=== PATIENT | female | born 1940 | race Caucasian/White ===

== ENCOUNTER → 2023-10-12 13:21 | Outpatient (REF) | payer OTHER, SELFPAY | LOC: RAD 13:21 | PROVIDERS: ATTENDING PHYSICIAN Nurse Practitioner Family | DX: R05.1 Acute cough (principal) | CPT/HCPCS: 71046 ==

== ENCOUNTER → 2023-11-12 14:03 | Outpatient (REF) | payer OTHER, SELFPAY | LOC: WDC 14:03 | PROVIDERS: ATTENDING PHYSICIAN Obstetrics & Gynecology; FAMILY PHYSICIAN Internal Medicine Geriatric Medicine | DX: Z12.31 Encounter for screening mammogram for malignant neoplasm of breast (principal) | CPT/HCPCS: 77063; 77067 ==

== ENCOUNTER → 2023-11-28 12:56 | Outpatient (REF) | payer OTHER, SELFPAY | LOC: RAD 12:56 | PROVIDERS: ATTENDING PHYSICIAN Thoracic Surgery (Cardiothoracic Vascular Surgery); FAMILY PHYSICIAN Internal Medicine Geriatric Medicine | DX: R91.1 Solitary pulmonary nodule (principal) | CPT/HCPCS: 71250 ==

== ENCOUNTER → 2024-02-13 14:01 | Outpatient (REF) | payer OTHER, SELFPAY | LOC: PAVMRI 14:01 | PROVIDERS: ATTENDING PHYSICIAN Psychiatry & Neurology Neurology; FAMILY PHYSICIAN Internal Medicine Geriatric Medicine | DX: G35 Multiple sclerosis (principal) | CPT/HCPCS: 70551; 72141 ==

== ENCOUNTER → 2024-04-02 13:10 | Outpatient (REF) | payer OTHER, SELFPAY | LOC: PET 13:10 | PROVIDERS: ATTENDING PHYSICIAN Internal Medicine Hematology & Oncology | DX: C18.0 Malignant neoplasm of cecum (principal) | CPT/HCPCS: 78815; A9552 ==

== ENCOUNTER 2024-05-01 23:03 | Inpatient (IN) | payer OTHER, SELFPAY ==
[2024-05-01 20:10] VITALS: BP 151/71
--- NOTE | 2024-05-01 22:30 | PTCARENOTE ---
Pt. arrived to 2S via EMS direct admit from [facility]. Pt. A&Ox3, in NAD, and VSS, able to walk to room bed with standby assist, pt. oriented to room and unit policies, call light and belongings within reach. Covering hospitalist notified of
patient's arrival.
[2024-05-01 23:35] VITALS: BMI 27.8
[2024-05-01 23:39] VITALS: BP 152/60
[2024-05-01 23:45] LABS: Glucose - Point of Care 214 mg/dl (70-99)
--- NOTE | 2024-05-02 00:17 | HPS.HSE ---
Family Physician
-
Family Physician: Miguel Martínez
Chief Complaint
-
Transfer from outside hospital following colorectal surgery
History of Present Illness
This is a 83-year-old female with past medical history of right lower lung neoplasm status post partial lung resection, CKD stage III, COPD not on home O2, mitral valve prolapse, MS and a recent diagnosis of cecal adenocarcinoma who was transferred
from [facility] following open right hemicolectomy with primary anastomosis on 04/22 with some postop complications
Patient reportedly had a recent history of rectal bleeding. This reportedly resulted in follow-up colonoscopy showing a malignant neoplasm in the cecum which was confirmed by biopsy. There was no apparent metastatic disease. Patient discussed the
plan and was to get a resection. Patient was admitted at [facility] and ultimately underwent resection on 04/22.
Because appeared to have been complicated by a finding of infectious delirium, tachycardia, and free here in the abdomen consistent with anastomotic leak on April 25. She had a stat reopening of the recent laparotomy with resection of necrotic
ileocolic anastomosis and a new ileocolic anastomosis created. No ostomy. There was placement of 2 Gonsalo drains. It appeared immediate postoperative course was complicated by supraventricular tachycardia and unstable atrial fibrillation with RVR
status post cardioversion to normal sinus rhythm and amiodarone drip which was ultimately tapered to p.o. she had NICOLE not requiring dialysis with eventual improvement of renal function. Briefly on the new and extubated the following day. Patient
was placed on TPN on April 27. NG tube placed.
On April 28 the patient was started on TPN. The midline incision had superficial skin dehiscence packed with plain packing and covered with 4 x 4 gauze. At this time the patient requested to be transferred to for ongoing car. Over the next 2
days they attempted to advance diet to low fiber diet but she developed emesis overnight on 04 30. She also had increasing WBC count going from 16K-24K. She underwent a CT of the abdomen and pelvis despite the initial refusal by patient. The
records of the CT abdomen pelvis is pending at this time. It was done without IV contrast. Patient's pain is apparently well-controlled on Tylenol 25 every 6 oxycodone 5 mg every 4 as needed. Patient was transferred with the bilateral drains in
place. She was voiding adequately and did not need a urinary catheter. TPN was running.
Medical History
Past Medical History
Past Medical History: Reports COPD and Valvular Disease (Mitral valve prolapse)
Additional Past Medical History:
Multiple sclerosis
Past Surgical History: Reports Bowel Resection and Other (Thyroidectomy)
Additional Past Surgical History:
Pneumonectomy/lobectomy
Left femoral tumor excision
Ovarian cyst removal
Social History
Tobacco: Former Smoker
Alcohol: None
Drug: None
Personal:
Living: With Family
Employment: Retired
Family History
Family History: Not pertinent
Allergies / Home Medications
Allergies reflects when Allergies were last updated in [facility].
Home Medications with original date entered in [facility]
Allergy/Medication List:
Allergies
Allergy/AdvReac Type Severity Reaction Status Date / Time
adhesive Allergy red and Verified 01/11/23 08:58
rashy
cephalexin monohydrate Allergy diarrhea Verified 01/11/23 08:58
[From Keflex]
cortisone Allergy Unknown Verified 01/11/23 08:58
hydromorphone HCl Allergy VERY Verified 01/11/23 08:58
[From Dilaudid] RED,RASH
Iodinated Contrast Media Allergy Hives Verified 01/11/23 08:58
[Iodinated Contrast Media -
IV Dye]
levofloxacin [From Levaquin] Allergy diarrhea Verified 01/11/23 08:58
meperidine HCl [From Demerol] Allergy Hives Verified 01/11/23 08:58
morphine Allergy Hives Verified 01/11/23 08:58
oxycodone HCl [From Percocet] Allergy Vomiting Verified 01/11/23 08:58
sulfamethoxazole Allergy diarrhea Verified 01/11/23 08:58
[From Bactrim] 'in the
past'
trimethoprim [From Bactrim] Allergy diarrhea Verified 01/11/23 08:58
'in the
past'
indixanol Allergy Hives Uncoded 01/11/23 08:58
Home Medications
cetirizine 10 mg tablet (Zyrtec) 10 mg PO DAILY PRN allergies #0 tabs 04/10/13
levothyroxine 50 mcg tablet 50 mcg PO DAILY 04/17/13
spironolactone 25 mg tablet 25 mg PO BID 04/17/13
Co Q-10 100 mg Softgel 200 mg PO DAILY 09/09/13
cholecalciferol (vitamin D3) 50 mcg (2,000 unit) tablet 2,000 units PO DAILY 09/09/13
wddugcap-ltj-shcjn acid 0.4 mg-lycopene 300 mcg-lutein 250 mcg tablet (Centrum Silver) 1 tab PO DAILY 09/09/13
esomeprazole magnesium 20 mg capsule,delayed release (Nexium) 20 mg PO DAILY 01/28/16
Pravachol: 80 mg PO DAILY 12/18/19
alprazolam 0.5 mg tablet 0.5 mg PO HS PRN sleep 12/18/19
cyanocobalamin (vitamin B-12) 5,000 mcg disintegrating tablet 5,000 mcg PO DAILY 12/18/19
magnesium oxide 400 mg PO DAILY 12/18/19
ascorbic acid (vitamin C) 500 mg tablet (Vitamin C) 500 mg PO DAILY 04/20/20
fluticasone propionate 115 mcg-salmeterol 21 mcg/actuation HFA inhaler (Advair HFA) 2 puff inhalation BID 09/05/22
levalbuterol tartrate 45 mcg/actuation aerosol inhaler 2 inh inhalation Q6H PRN COPD 09/05/22
propranolol 10 mg tablet 10 mg PO BID 09/05/22
Review of Systems
-
History Source: Patient and Family
Constitutional: Reports No Symptoms
EENT: Reports No Symptoms
Respiratory: Reports No Symptoms
Cardiac: Reports No Symptoms
Abdomen/GI: Reports Abdominal Pain and Nausea
: Reports No Symptoms
Musculoskeletal: Reports No Symptoms
Skin: Reports No Symptoms
Neurological: Reports No Symptoms
Endocrine: Reports No Symptoms
Hematologic/Lymphatic: Reports No Symptoms
Psych: Reports No Symptoms
Physical Exam
Vital Signs
Vital Signs
Temp Pulse Resp BP Pulse Ox
98.1 F 73 20 152/60 94
05/01/24 23:39 05/01/24 23:39 05/01/24 23:39 05/01/24 23:39 05/01/24 23:39
Physical Exam
General: Well Developed, Well Nourished, No Apparent Distress, Comfortable and Conversant
HEENT: NormoCephalic, Anicteric, Moist mucous membranes and Atraumatic
Respiratory: Clear
Cardiac: S1/S2 and Regular Rhythm
Breast: Deferred by me
GI: Soft, Normal Bowel Sounds, Distended, No Hepatosplenomegaly and Other (Bilateral Gonsalo tubes with midline insertion/incision. No significant drainage around the incision site. Serosanguineous drainage from the tubes)
Rectal: Deferred by Provider
Genito-urinary: Deferred by me
Musculoskeletal: No Clubbing, No Cyanosis and No Edema
Skin: Warm
Neuro: AO x 3
Psych: Calm
Data Reviewed
-
Old Records: Reviewed
Impression/Plan
-
IMPRESSION:
PLAN:
1. GI -6 days status post exploratory laparotomy, Elzbieta to me with biopsy and reanastomosis ofter failure of old anastomosis with intraperitoneal air. She is currently well appearing but continues to have leukocytosis and is intolerant of po, ?
bowel obstruction.
- admit to telemetry for now
- NPO except meds
- pain control and antiemetics
- ppi iv, famotidine for now
- surgery consultation
- d5 ns at this time pending tpn
- Patient on TPN at outside hospital, will need placement of TPN in am -> see records
2. Leukocytosis - WBC up from16 to 24. S/P CT A/P w/o contrast. Not available for review at this time. Requested summary and imaging.
- infectious d/z w/u
- blood culture, fluid culture
- urine culture
- drain per surgery
- xray
- continuing IV ceftriaxone and flagyl.
3.AFIB - Post operative AP in setting of urgent ex-lap. Cardioverted. No recurrence since
- amio 400mg q 8, will need titration down per cardiology
- no AC given recent complex surgery and possible OR
- cardiology consult
4. Endocrine - No h/o DM II
- while npo, bedside qlucose q6 with low dose sliding scale insulin
5. Delirium - Delirium while hospitalized either secondary to sepsis or medications. Patient pleasant but still slightly confused. No focal neurological deficits (mixes up words intermittently)
- xanax 0.5 hs prn
- minimize opioids as tolerated
6. Pulm - COPD/ANABELLE
- incentive spirometry
- continue advair with prn albuterol
- CPAP per patient unit
Requested radiology reports, images and consults
Wound care consult (was getting daily dressing changes)
PT consult
Continue pravstatin and synthroid
Holding propranolol and spironolactone
DVT PPX - lovenox sq
Code Status - Full Code
[2024-05-02] MEDS: TYLENOL PO ×2 (00:19→05:23)
[2024-05-02] MEDS: FLAGYL 500 MG 100 IV ×3 (00:19→15:20)
[2024-05-02] MEDS: D5/0.45%NACL 1000 IV (00:19)
[2024-05-02] MEDS: NOVOLOG FLEXPEN-LOW RESISTANCE 2 UNITS SC (00:20)
--- NOTE | 2024-05-02 05:45 | PTCARENOTE ---
IV nurse reporting patient is refusing morning lab work and stating she didn't want 'anything' done at this time citing that she was tired and wanted to speak with a doctor. Pt. also demanding to have IVF taken down until she speaks to a doctor but
able to educate patient on need for fluids and she agreed to keep IVF running. Release of information forms, MRSA swab, UA, CRISTINA cultures, and 0600 blood glucose check unable to be performed at this time.
[2024-05-02] MEDS: NOVOLOG FLEXPEN-LOW RESISTANCE SC (05:49)
--- NOTE | 2024-05-02 05:49 | VATNOTE ---
PT REFUSED TO HAVE ORDERED LABS DRAWN FROM HER PICC LINE. PT STATED SHE 'DOESNT WANT ANYTHING DONE OR GIVEN TO HER UNTIL SHE SEES THE MD.' PCN MADE AWARE.
[2024-05-02] MEDS: SYNTHROID PO (05:50)
[2024-05-02 06:00] VITALS: BMI 27.5
[2024-05-02 06:45] LABS: Glucose - Point of Care 170 mg/dl (70-99)
[2024-05-02 07:17] LABS: ALT (SGPT) 16 U/L (0-35); AST (SGOT) 24 U/L (14-36); Albumin 2.7 g/dl (3.5-5.0); Alkaline Phosphatase 83 U/L (38-126); Blood Urea Nitrogen 38 mg/dl (7-17); Calcium 8.6 mg/dl (8.4-10.2); Carbon Dioxide 21 mmol/L (22-30); Chloride 106 mmol/L (98-107); Estimated Creatinine Clearance 69 ml/min; Glucose 166 mg/dl (70-99); Lipase 733 U/L (23-300); Potassium 4.3 mmol/L (3.5-5.1); Sodium 140 mmol/L (135-145); Total Bilirubin 0.5 mg/dl (0.2-1.3); Total Protein 5.1 g/dl (6.3-8.2); eGFR > 60.00
[2024-05-02] MEDS: ADVAIR HFA 115/21 MCG INHALER 2 PUFF INH ×2 (07:48→19:29)
[2024-05-02 08:16] LABS: Hematocrit 27.7 % (37.0-47.0); Hemoglobin 9.3 g/dL (12.0-16.0); Mean Corp Hgb Conc. 33.6 g/dL (33.0-37.0); Mean Corpuscular Hgb 28.7 pg (27.0-31.0); Mean Corpuscular Volume 85.5 fL (81.0-99.0); Platelet Count 527 10^3/uL (130-400); Red Blood Cell Count 3.24 10^6/uL (4.20-5.40); Red Cell Dist. Width 19.1 % (11.5-14.5); White Blood Cell Count 23.6 10^3/uL (4.8-10.8)
[2024-05-02 08:35] LABS: % Basophils 0.4 % (0-2); % Lymphocytes 4.7 % (20.5-51.1); % Monocytes 4.5 % (1.7-9.3); % Neutrophils 84.4 % (42.2-75.2); Absolute Basophils 0.1 10^3/uL (0-0.2); Absolute Immature Granulocytes 1.4 10^3/uL (0-0.05); Absolute Lymphocytes 1.1 10^3/uL (1.2-3.4); Absolute Monocytes 1.1 10^3/uL (0.1-0.6); Absolute Neutrophils 19.9 10^3/uL (1.4-6.5); Nucleated Red Blood Cells % 0 %
--- NOTE | 2024-05-02 08:50 | WOUNDNOTE ---
MID ABDOMEN (prior to stapes removed by colorectal service).
[2024-05-02 08:52] VITALS: BP 132/59
--- NOTE | 2024-05-02 09:01 | WOUNDNOTE ---
ABDOMEN (AFTER DELICIA REMOVED BY COLORECTAL SERVICE).
--- NOTE | 2024-05-02 09:02 | WOUNDNOTE ---
[facility] RN note: Patient was transferred to from [facility] per patient request. s/p R hemicolectomy for cecal cancer on 04/22/24 and had stat surgery on 04/25/24 for anastomotic leak at [facility].
See H&P for complete history.
PMH: R lung ca, s/p partial resection, CKD3, COPD, mitral prolapse, MS.
Wound Location and type/assessment: Patient admitted with: stage 1 lower sacral crease stage 1 pressure injury. Full thickness surgical wound mid abdomen with zack and large amount of serous and purulent garcia drainage. CRISTINA sites with local
erythema.
Appetite: NPO currently.
Pressure redistribution devices in place: Advanta with Accumax. Patient turns easily in bed.
Plan: Colorectal service in room during visit. Dr. Cheung and NELLIE Coker removed mid line abdominal zack. Dr. Cheung wants nursing to change saline gauze packing bid. Abdominal wound packed as ordered. CRISTINA drainage sponges changed.
Protective silicone border foam applied to sacrum. Heels off bed with air chair cushion. Instructed patient pressure injury prevention measures. Updated TONJA Bhandari.
Updated care plan. Will sign off. Call if needed.
Note to case management of equipment requested for discharge: VN if patient goes home.
Patient to follow up with colorectal surgeon.
--- NOTE | 2024-05-02 09:06 | W.PN.HOSP.TC ---
Today's Communication/Plan
-
Antibiotics. Postop care. PT OT eval
Assessment / Plan
Assessment / Plan
Physical exam:
General: Appears chronically ill and No Apparent Distress
HEENT: Normocephalic, Atraumatic and Moist Mucous Membranes
Respiratory: Clear to Auscultation; Negative Wheezes, Rales or Rhonchi
Cardiac: Regular Rhythm and S1/S2
GI: Postop findings, Soft, Nontender and Nondistended
Musculoskeletal: No Clubbing, No Cyanosis and No Edema
Neuro: Awake, Alert and Oriented
Psych: Calm
A/P:
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
Transfer from [facility] on 05/01/2024
On low residue diet
Colorectal surgery consult
No need for TPN
Trying to obtain recent abdomen images from transfer facility
PT OT eval
Persistent leukocytosis:
WBC 23.6 today
Continue antibiotics, IV Rocephin and Flagyl
ID consult
Anemia:
Hemoglobin 9.3 today
Continue to monitor hemoglobin closely
Paroxysmal atrial fibrillation:
On amiodarone 400 mg daily
Plan for twelve-lead EKG and echocardiogram
Cardiology consult
Delirium:
Improving
Diabetes mellitus type 2:
On insulin sliding scale
Update hemoglobin A1c
Hypothyroidism:
Continue levothyroxine 50 mcg p.o. daily
Hyperlipidemia:
Continue pravastatin 80 mg p.o. nightly
GERD:
On Protonix 40 mg IV daily
Anxiety:
On alprazolam 0.5 mg nightly as needed
DVT prophylaxis:
Lovenox SQ
CODE STATUS:
Full code
Total time spent on today's encounter was 52 minutes which included time spent in counseling the patient/family regarding diagnosis and treatment plan as listed above, goals of care, and symptom management. Case was discussed with nursing staff,
specialists, and care coordinators/case management. All labs and imaging personally reviewed by me. Remainder the time spent in detailed review of previous records, lab data, imaging, and other medical provider documentation.
Anticipated Discharge: > 48 hours
Subjective/Interval History
-
Date of Service: May 02, 2024
Patient denies any chest pain or shortness of breath, she is alert and oriented. She has some abdominal discomfort but not much. Afebrile
Objective Data
-
Labs:
Laboratory Results
05/02/24 05/02/24
06:00 06:43
WBC 23.6 H
Hgb 9.3 L
Hct 27.7 L
Plt Count 527 H
Sodium 140
Potassium 4.3
Chloride 106
Carbon Dioxide 21 L
BUN 38 H
Creatinine 0.7
Glucose 166 H
Calcium 8.6
Total Bilirubin 0.5
AST 24
ALT 16
Alkaline Phosphatase 83
Vital Signs:
Vital Signs
Temp Pulse Resp BP Pulse Ox
97.9 F 70 16 132/59 95
05/02/24 08:52 05/02/24 08:52 05/02/24 08:52 05/02/24 08:52 05/02/24 08:52
[2024-05-02] MEDS: PEPCID 20 MG PO (09:20)
[2024-05-02] MEDS: PACERONE 400 MG PO (09:21)
[2024-05-02] MEDS: TYLENOL 650 MG PO ×4 (09:22→20:00)
[2024-05-02] MEDS: PROTONIX IV 40 MG IV (09:23)
[2024-05-02] MEDS: ROCEPHIN 1000 MG IV (09:25)
[2024-05-02] MEDS: NSS (PRESERVATIVE FREE) 10 ML IV (09:26)
[2024-05-02] MEDS: STERILE WATER FOR INJECTION 10 ML IV (09:40)
--- NOTE | 2024-05-02 09:55 | PTCARENOTE ---
pt removed tele monitor. Is on 400mg Amiodarone advised and provide teaching but pt refuses. Stated she will wait for Dr. Gonzalez and if he says she has to she will replace.
--- NOTE | 2024-05-02 10:44 | CM ---
Reviewed the chart notes and spoke with the patient at the bedside. The patient was a transfer from [facility]. The patient is currently on supplemental O2. The patient resides with her spouse in a three story home with one step to enter. The
patient has in the home a rolling walker, wheelchair, CPAP, and electric scooter. The patient has had [facility] in the past, but no SNF. The patient confirmed her pharmacy of choice is the [facility] [address] [place] [address]. continues to be available to
patient/family and is monitoring medical plan for needs at discharge.
Plan: Discharge plans will depend on the patient's progress.
[2024-05-02 11:50] LABS: Glucose - Point of Care 151 mg/dl (70-99)
--- NOTE | 2024-05-02 12:11 | CON.CRS ---
Consultation
-
Date/Time Consultation Requested: 05/02/2024, 00:53
Date/Time Consultation Performed: 05/02/2024, 08:30
Requesting Provider: Ramon Guerra MD
Performing Provider: Riley Cheung MD
Reason for Consultation: post op right colectomy
Medical History
-
Chief Complaint: Postop complications
History of Present Illness:
83-year-old female with a recent open right colectomy on 04/22/2024 and subsequent anastomotic leak with repair on 04/27/2024 presents as a transfer from [place] due to patient family request. The patient's family lives locally and her has had
a hard time getting down to the city every day given her complications. Originally the patient had rectal bleeding which resulted in a follow-up colonoscopy showing a malignant neoplasm in the cecum with no metastatic disease. She was seen by
Jonatan in the office and plan for surgery however went to [place] for a second opinion and ultimately was operated on by them. She underwent an open right colectomy on 04/22/2024 and soon after became delirious, tachycardic, and free air in the
abdomen. She was diagnosed with an anastomotic leak and underwent surgical repair on April 27, 2024. Findings showed a necrotic ileocolic anastomosis. A new anastomosis had been created. She also had 2 drains placed intraoperatively.
Postoperatively she went into supraventricular tachycardia and unstable atrial fibrillation and was placed on amiodarone drip which has been converted to p.o. She had NICOLE but this did not require dialysis and her renal function improved. She had
an NG tube placed which has been removed. The patient had been started on TPN on April 28. Her midline incision had some dehiscence and they had been packing it daily. They attempted to advance her diet 2 days ago however she had emesis at that
time. Prior to her leaving [place] she had a CT of the abdomen and pelvis and then was sent directly to [facility]. We unfortunately do not have the read or CT copy. The patient currently states she feels 'okay'. She is very hungry. Her
pain is controlled. She has remained afebrile since her admission but her white count is 23.6. It was reportedly about 24 yesterday at [place] which prompted them to order the CT prior to her transfer. We have been consulted for further surgical
opinion.
Past Medical History
Past Medical History: Other (COPD, mitral valve prolapse, history of right lower lobe lung cancer, CKD stage III, cecal adenocarcinoma, multiple sclerosis)
Past Surgical History: Other (Partial right lower lobe resection, open right colectomy due to cecal adenocarcinoma with subsequent repair of anastomotic leak, left femoral tumor excision, ovarian cyst removal)
Social History
Tobacco: Former Smoker
Alcohol: None
Drug: None
Family History
Family History: Reviewed & Not Pertinent
Allergies / Home Medications
Allergy/AdvReac Type Severity Reaction Status Date / Time
adhesive Allergy red and Verified 01/11/23 08:58
rashy
cephalexin monohydrate Allergy diarrhea Verified 01/11/23 08:58
[From Keflex]
cortisone Allergy Unknown Verified 01/11/23 08:58
hydromorphone HCl Allergy VERY Verified 01/11/23 08:58
[From Dilaudid] RED,RASH
Iodinated Contrast Media Allergy Hives Verified 01/11/23 08:58
[Iodinated Contrast Media -
IV Dye]
levofloxacin [From Levaquin] Allergy diarrhea Verified 01/11/23 08:58
meperidine HCl [From Demerol] Allergy Hives Verified 01/11/23 08:58
morphine Allergy Hives Verified 01/11/23 08:58
oxycodone HCl [From Percocet] Allergy Vomiting Verified 01/11/23 08:58
sulfamethoxazole Allergy diarrhea Verified 01/11/23 08:58
[From Bactrim] 'in the
past'
trimethoprim [From Bactrim] Allergy diarrhea Verified 01/11/23 08:58
'in the
past'
indixanol Allergy Hives Uncoded 01/11/23 08:58
�Medication �Instructions �Recorded �Confirmed �Type
cetirizine 10 mg tablet (Zyrtec) 10 mg PO DAILY PRN allergies #0 04/10/13 01/11/23 Rx
tabs
levothyroxine 50 mcg tablet 50 mcg PO DAILY 04/17/13 01/11/23 History
spironolactone 25 mg tablet 25 mg PO BID 04/17/13 01/11/23 History
Co Q-10 100 mg Softgel 200 mg PO DAILY 09/09/13 01/11/23 History
cholecalciferol (vitamin D3) 50 2,000 units PO DAILY 09/09/13 01/11/23 History
mcg (2,000 unit) tablet
pyuicepc-vsq-giual acid 0.4 1 tab PO DAILY 09/09/13 01/11/23 History
mg-lycopene 300 mcg-lutein 250 mcg
tablet (Centrum Silver)
esomeprazole magnesium 20 mg 20 mg PO DAILY 01/28/16 01/11/23 History
capsule,delayed release (Nexium)
Pravachol: 80 mg PO DAILY 12/18/19 01/11/23 History
alprazolam 0.5 mg tablet 0.5 mg PO HS PRN sleep 12/18/19 01/11/23 History
cyanocobalamin (vitamin B-12) 5,000 mcg PO DAILY 12/18/19 01/11/23 History
5,000 mcg disintegrating tablet
magnesium oxide 400 mg PO DAILY 12/18/19 01/11/23 History
ascorbic acid (vitamin C) 500 mg 500 mg PO DAILY 04/20/20 01/11/23 History
tablet (Vitamin C)
fluticasone propionate 115 2 puff inhalation BID 09/05/22 01/11/23 History
mcg-salmeterol 21 mcg/actuation
HFA inhaler (Advair HFA)
levalbuterol tartrate 45 2 inh inhalation Q6H PRN COPD 09/05/22 01/11/23 History
mcg/actuation aerosol inhaler
propranolol 10 mg tablet 10 mg PO BID 09/05/22 01/11/23 History
Review of Systems
-
History Source: Patient
Abdomen/GI: Abdominal Pain
A 10 point review of systems was completed, and was negative except as per HPI.
Physical Exam
Vital Signs
Temp 97.9 F 05/02/24 08:52
Pulse 70 05/02/24 08:52
Resp Rate 16 05/02/24 08:52
Blood pressure 132/69 05/02/24 09:21
SaO2 95 05/02/24 08:52
05/01/24 05/02/24 05/03/24
06:59 06:59 06:59
Actual Weight 80.541 kg
Body Mass Index (BMI) 27.8
Lab Results / Allergies
05/02/24 06:00
05/02/24 06:43
WBC 23.6 10^3/uL (4.8-10.8) H 05/02/24 06:00
Hgb 9.3 g/dL (12.0-16.0) L 05/02/24 06:00
Hct 27.7 % (37.0-47.0) L 05/02/24 06:00
Plt Count 527 10^3/uL (130-400) H 05/02/24 06:00
Abs Immat Gran (auto) 1.4 10^3/uL (0-0.05) H 05/02/24 06:00
Neutrophils % 84.4 % (42.2-75.2) H 05/02/24 06:00
Allergy/AdvReac Type Severity Reaction Status Date / Time
adhesive Allergy red and Verified 01/11/23 08:58
rashy
cephalexin monohydrate Allergy diarrhea Verified 01/11/23 08:58
[From Keflex]
cortisone Allergy Unknown Verified 01/11/23 08:58
hydromorphone HCl Allergy VERY Verified 0720/23 08:58
[From Dilaudid] RED,RASH
Iodinated Contrast Media Allergy Hives Verified 01/11/23 08:58
[Iodinated Contrast Media -
IV Dye]
levofloxacin [From Levaquin] Allergy diarrhea Verified 01/11/23 08:58
meperidine HCl [From Demerol] Allergy Hives Verified 01/11/23 08:58
morphine Allergy Hives Verified 01/11/23 08:58
oxycodone HCl [From Percocet] Allergy Vomiting Verified 01/11/23 08:58
sulfamethoxazole Allergy diarrhea Verified 01/11/23 08:58
[From Bactrim] 'in the
past'
trimethoprim [From Bactrim] Allergy diarrhea Verified 01/11/23 08:58
'in the
past'
indixanol Allergy Hives Uncoded 01/11/23 08:58
Physical Exam
General: Well Developed, Well Nourished and No Apparent Distress
GI: Soft, Non Tender, Non Distended and Other (Midline incision with packing in place. Packing removed and redressed. CRISTINA drain with pus)
Neuro: AO x 3
Psych: Calm
Data Reviewed
-
Labs: Labs Reviewed by me, Discussed with Physician and Discussed with Patient
Old Records: Requested and Reviewed
Assessment / Plan
-
Assessment: 83-year-old female with recent open right colectomy complicated by a necrotic anastomosis with subsequent anastomotic repair at [place], is transferred to [facility] due to patient's request with a WBC of 23.[address] performed
yesterday
Plan:
-Will attempt to get record of CT scan. Records have been requested to [facility] via the unit manager rn, resident was texted via Dr. Cheung, and patient's son notified to attempt to get records through the portal
-Continue to trend WBC
-Continue IV antibiotics
-No further TPN. Will start at a low residue diet.
-Wet-to-dry wound dressings twice daily, appreciate wound RN
-Appreciate hospitalist
-Plans to follow once CT records have been obtained
[2024-05-02 12:25] VITALS: BP 162/68
[2024-05-02 12:57] VITALS: BP 141/68
--- NOTE | 2024-05-02 13:14 | VATNOTE ---
PICC in good position per radiology report, OK to use. PCN notified.
--- NOTE | 2024-05-02 14:12 | CON.CAR ---
Consultation
Consultation Request
Date/Time Consultation Requested: 05/02/24, 7am
Date/Time Consultation Performed: 05/02/23, 10am
Requesting Provider: Mari
Performing Provider: Carlos
Reason for Consultation: A fib
Medical History
-
Chief Complaint: new A fib
History of Present Illness:
83 yo female with PMH of HTN, multiple med intolerances, coronary artery calcification on CT, dyslipidemia, prior lung cancer, and now new diagnosis of colon cancer. She underwent right hemicolectomy at [facility] 04/22, then back to OR 04/25 for
anastomotic leak/revision. In that setting, she developed A fib with RVR, with hypotension. She was cardioverted and started on amiodarone. She remains in sinus currently. She offers no cardiac complaints. She feels that the loading dose of
amiodarone was causing her to feel mental fogginess/confusion. She was not started on OAC due to elevated bleeding risk associated with her redo surgery, and possible need for additional surgeries/interventions.
Past Medical History
Past Medical History: Arrhythmias (paroxysmal SVT), CAD (coronary artery calcification on CT), COPD, HTN and Hypercholesterolemia
Past Surgical History: Bowel Resection (04/22 right hemicolectomy)
Social History
Tobacco: Non-Smoker
Living: With Family
Family History
Family History: Early CAD (none)
Allergies / Home Medications
Allergy/AdvReac Type Severity Reaction Status Date / Time
adhesive Allergy red and Verified 01/11/23 08:58
rashy
cephalexin monohydrate Allergy diarrhea Verified 01/11/23 08:58
[From Keflex]
cortisone Allergy Unknown Verified 01/11/23 08:58
hydromorphone HCl Allergy VERY Verified 01/11/23 08:58
[From Dilaudid] RED,RASH
Iodinated Contrast Media Allergy Hives Verified 01/11/23 08:58
[Iodinated Contrast Media -
IV Dye]
levofloxacin [From Levaquin] Allergy diarrhea Verified 01/11/23 08:58
meperidine HCl [From Demerol] Allergy Hives Verified 01/11/23 08:58
morphine Allergy Hives Verified 01/11/23 08:58
oxycodone HCl [From Percocet] Allergy Vomiting Verified 01/11/23 08:58
sulfamethoxazole Allergy diarrhea Verified 01/11/23 08:58
[From Bactrim] 'in the
past'
trimethoprim [From Bactrim] Allergy diarrhea Verified 01/11/23 08:58
'in the
past'
indixanol Allergy Hives Uncoded 01/11/23 08:58
�Medication �Instructions �Recorded �Confirmed �Type
cetirizine 10 mg tablet (Zyrtec) 10 mg PO DAILY PRN allergies #0 04/10/13 01/11/23 Rx
tabs
levothyroxine 50 mcg tablet 50 mcg PO DAILY 04/17/13 01/11/23 History
spironolactone 25 mg tablet 25 mg PO BID 04/17/13 01/11/23 History
Co Q-10 100 mg Softgel 200 mg PO DAILY 09/09/13 01/11/23 History
cholecalciferol (vitamin D3) 50 2,000 units PO DAILY 09/09/13 01/11/23 History
mcg (2,000 unit) tablet
ptohlvxs-pyd-xkxvs acid 0.4 1 tab PO DAILY 09/09/13 01/11/23 History
mg-lycopene 300 mcg-lutein 250 mcg
tablet (Centrum Silver)
esomeprazole magnesium 20 mg 20 mg PO DAILY 01/28/16 01/11/23 History
capsule,delayed release (Nexium)
Pravachol: 80 mg PO DAILY 12/18/19 01/11/23 History
alprazolam 0.5 mg tablet 0.5 mg PO HS PRN sleep 12/18/19 01/11/23 History
cyanocobalamin (vitamin B-12) 5,000 mcg PO DAILY 12/18/19 01/11/23 History
5,000 mcg disintegrating tablet
magnesium oxide 400 mg PO DAILY 12/18/19 01/11/23 History
ascorbic acid (vitamin C) 500 mg 500 mg PO DAILY 04/20/20 01/11/23 History
tablet (Vitamin C)
fluticasone propionate 115 2 puff inhalation BID 09/05/22 01/11/23 History
mcg-salmeterol 21 mcg/actuation
HFA inhaler (Advair HFA)
levalbuterol tartrate 45 2 inh inhalation Q6H PRN COPD 09/05/22 01/11/23 History
mcg/actuation aerosol inhaler
propranolol 10 mg tablet 10 mg PO BID 09/05/22 01/11/23 History
Review of Systems
-
History Source: Patient
All other systems: Negative unless noted
Constitutional: Fatigue
Neurological: Weakness
Physical Exam
Vital Signs
Temp Pulse Resp BP Pulse Ox
98.1 F 72 18 162/68 98
05/02/24 12:25 05/02/24 12:25 05/02/24 12:25 05/02/24 12:25 05/02/24 12:25
Lab Results
05/02/24 06:00
05/02/24 06:43
Physical Exam
General: No Apparent Distress
HEENT: Normocephalic and Anicteric
Respiratory: Clear and Non Labored Respirations
Cardiac: S1/S2 (normal), Regular Rhythm, Murmur (none) and Peripheral Edema (none)
Musculoskeletal: Clubbing, No Cyanosis and No Edema
Skin: Warm and Dry
Neuro: AO x 3
Psych: Calm
Impression / Plan
-
83 yo female with PMH of HTN, multiple med intolerances, coronary artery calcification on CT, dyslipidemia, prior lung cancer, and now new diagnosis of colon cancer. She underwent right hemicolectomy at [facility] 04/22, then back to OR 04/25 for
anastomotic leak/revision. In that setting, she developed A fib with RVR, with hypotension. She was cardioverted and started on amiodarone. She remains in sinus currently. She offers no cardiac complaints. She feels that the loading dose of
amiodarone was causing her to feel mental fogginess/confusion. She was not started on OAC due to elevated bleeding risk associated with her redo surgery, and possible need for additional surgeries/interventions.
# Afib with RVR, new
-paroxysmal in post op setting after redo surgery
-back in sinus
-echo 05/02: EF 75%, no sig valve disease
-reports side effects to loading dose amiodarone: will reduce to 200mg daily
-plan to continue for 2-3 months as outpatient
-resume home propranolol 10mg bid
-she did not tolerate other beta blockers
-CHADS2-VASC = 5. Discussed with surgical team: elevated risk of bleeding with redo surgery, and may need additional surgeries or procedures
-discussed with patient. Will not start anticoagulation unless A fib recurs
# post op hemicolectomy 04/22, and redo surgery for anastomotic leak 04/25
-with rising WBC
-discussed with surgical team: she may need IR drain, or possible redo surgery
-she is stable from cardiac perspective for these procedures
# HTN
-multiple medication intolerance: she tolerates propranolol and aldactone as outpatient
-resume home propranolol 10mg bid
-monitor to resume home aldactone 25mg bid as she recovers from OR
# Coronary artery calcification on CT
-multiple medication intolerance
-continue pravastatin
Data Reviewed
-
EKG: Tracing Personally Visualized and interpreted (NSR, LVH)
Medical Tests (Nuc Med, Echo etc): Image Personally Visualized and interpreted (echo per note)
Labs: Labs Reviewed by me
[2024-05-02] MEDS: NOVOLOG FLEXPEN-LOW RESISTANCE 1 UNITS SC (15:19)
[2024-05-02 15:58] LABS: Glucose - Point of Care 200 mg/dl (70-99)
[2024-05-02 16:15] VITALS: BP 133/52
[2024-05-02] MEDS: LOVENOX 40 MG SC (17:10)
[2024-05-02] MEDS: PRAVACHOL 80 MG PO (17:11)
[2024-05-02] MEDS: NOVOLOG FLEXPEN-MODERATE RESISTANCE 3 UNITS SC (17:12)
--- NOTE | 2024-05-02 17:21 | PTCARENOTE ---
1600. out of room, in hallway becoming agitated about the lengthen of time it is taking to get lunch. it was explained why there was a hold with Dr. Cheung making adjustments to diet. @ other nurses became involved d/t agitation level.
Called kitchen on speaker to verify order, he still was not happy. Male nurse escorted to room.
pt did stated I turned off her call bennett, nurse stated vonnie bennett is not on it is the chair alarm, alarming but she stated I turned off call bennett and she has been waiting for assistance. redirection to a point.
[2024-05-02 17:53] LABS: Urine Albumin Trace (Neg - Trace); Urine Bilirubin Negative (Negative); Urine Character Clear (Clear); Urine Color Yellow; Urine Glucose Negative (Negative); Urine Ketone Negative (Negative); Urine Leukocyte Trace (Negative); Urine Nitrite Negative (Negative); Urine Occult Blood Negative (Negative); Urine Specific Gravity 1.015 (<1.030); Urine Urobilinogen Negative (Neg - 1+)
[2024-05-02 18:11] LABS: Urine Bacteria Moderate (Negative); Urine Red Blood Cell 0-2 /HPF (0-2); Urine White Cell 0-2 /HPF (0-5)
[2024-05-02 18:14] LABS: Urine Urothelial Cell 16-20 /LPF (FEW)
--- NOTE | 2024-05-02 18:33 | W.PN.UPDATE ---
Update Note
Progress Note Update
CT scan of the abdomen and pelvis without contrast on 05/01/24 report reviewed and there is no drainable collection. I suspect the leukocytosis is from the wound.
Will continue to monitor and rescan if it continues to elevate or if fever develops. The existing drains will remain in place.
Patient and family updated.
[2024-05-02 19:00] VITALS: BP 144/66
[2024-05-02] MEDS: SENNA SYRUP 8.8 MG PO (20:00)
[2024-05-02] MEDS: INDERAL 10 MG PO (20:00)
[2024-05-02] MEDS: DESENEX/MITRAZOL/ZEASORB 1 APPLIC TOPICAL (20:01)
[2024-05-02 22:38] LABS: Glucose - Point of Care 124 mg/dl (70-99)
[2024-05-02 23:26] VITALS: BP 135/80
[2024-05-03] VITALS (7 sets, daily range): BP systolic 121–154; BP diastolic 55–77; BMI 27.5
[2024-05-03] MEDS: TYLENOL 650 MG PO (00:08)
[2024-05-03] MEDS: FLAGYL 500 MG 100 IV ×2 (00:08→09:22)
[2024-05-03] MEDS: ZOFRAN 4 MG IV ×2 (03:07→09:34)
[2024-05-03] MEDS: TYLENOL PO ×3 (04:16→15:30)
[2024-05-03 05:02] LABS: % Basophils 0.3 % (0-2); % Eosinophils 0.2 % (0-6); % Immature Granulocytes 3.3 % (0-0.5); % Lymphocytes 4.8 % (20.5-51.1); % Monocytes 6.7 % (1.7-9.3); % Neutrophils 84.7 % (42.2-75.2); Absolute Basophils 0.1 10^3/uL (0-0.2); Absolute Eosinophils 0.1 10^3/uL (0-0.7); Absolute Immature Granulocytes 0.7 10^3/uL (0-0.05); Absolute Lymphocytes 1.1 10^3/uL (1.2-3.4); Absolute Monocytes 1.5 10^3/uL (0.1-0.6); Absolute Neutrophils 18.6 10^3/uL (1.4-6.5); Hematocrit 30.2 % (37.0-47.0); Hemoglobin 9.8 g/dL (12.0-16.0); Mean Corp Hgb Conc. 32.5 g/dL (33.0-37.0); Mean Corpuscular Hgb 27.8 pg (27.0-31.0); Mean Corpuscular Volume 85.8 fL (81.0-99.0); Mean Platelet Volume 9.6 fL (7.4-10.4); Nucleated Red Blood Cells % 0 %; Platelet Count 577 10^3/uL (130-400); Red Blood Cell Count 3.52 10^6/uL (4.20-5.40); Red Cell Dist. Width 19.1 % (11.5-14.5)
[2024-05-03 05:18] LABS: Blood Urea Nitrogen 36 mg/dl (7-17); Calcium 8.4 mg/dl (8.4-10.2); Carbon Dioxide 22 mmol/L (22-30); Chloride 105 mmol/L (98-107); Estimated Creatinine Clearance 60 ml/min; Glucose 122 mg/dl (70-99); Potassium 4.4 mmol/L (3.5-5.1); Sodium 141 mmol/L (135-145); eGFR > 60.00
--- NOTE | 2024-05-03 05:27 | PTCARENOTE ---
pt c/o feeling nausea, received Zofran. Pt abd is slightly more firm than my initial assessment, she had a mod soft to loose tarry BM . MACHINE LEAD BURNER notified, orders lab and NPO .
[2024-05-03] MEDS: SYNTHROID PO (05:32)
--- NOTE | 2024-05-03 07:32 | CON.ID ---
Consultation
-
Date/Time Consultation Requested: 05/02/24 13:09
Date/Time Consultation Performed: 05/03/24 11:223
Requesting Provider: Dr Guerra
Performing Provider: Dr Mendoza
Reason for Consultation: persistent leukocytosis recent colectomy
Chief Complaint / Past History
Chief Complaint
Transfer from outside hospital following colorectal surgery
History of Present Illness
Ms Andrade is an 83 year old female with history of COPD not on home O2, RLL neoplasm s/p partial lung resection, CKD3, MS and recent diagnosis of cecal adnocarcinoma transferred from [facility] after R hemicolectomy and primary anastomosis
on 04/22 - post operative course notable for anastamotic leak, delirium, tachycardia, with free air in the abdomen and 04/27 taken for reopening of laparotomy and underwent resection of necrotic ileocolic anastomosis and new ileocolic anastomosis -
no ostomy; two kenyon drains placed. This post operative course complicated by SVT/afib with RVR, NICOLE which resolved. 04/28 started TPN and the midline had superficial skin dehiscence paced and covered with gauze. She requested transfer to for
ongoing care to be closer to family. While awaiting transfer her diet was advanced but she had vomiting. CT was recommended and initially refused by the patient, then later done on 05/01.
Of note 04/02/24 PET scan only remarkable for lesion in the ileocecal valve with known adenocarcinoma - no apparent mets
Since arrival here she has been afebrile, bp stable, wbc initially 23 on arrival and today 22, hgb 9.8, plt 577, L shift is noted, cr 0.8, a1c 6.5, t bili 0.5, ast 24, alt 16, alk phos 83, AXR: nonobstructive bowel gas pattern, CXR: picc in place, a
culture was sent from the CRISTINA drain itself and grew many presumtive Pseudomonas, patient currently on ceftiraxone and metronidazole.
Past History
Additional Past Medical History:
COPD
MVP
Additional Past Surgical History:
Pneumonectomy/lobectomy
Left femoral tumor excision
Ovarian cyst removal
Allergy History:
adhesive Allergy (Verified 01/11/23 08:58)
red and rashy
cephalexin monohydrate [From Keflex] Allergy (Verified 01/11/23 08:58)
diarrhea
cortisone Allergy (Verified 01/11/23 08:58)
Unknown
hydromorphone HCl [From Dilaudid] Allergy (Verified 01/11/23 08:58)
VERY RED,RASH
Iodinated Contrast Media [Iodinated Contrast Media - IV Dye] Allergy (Verified 01/11/23 08:58)
Hives
levofloxacin [From Levaquin] Allergy (Verified 01/11/23 08:58)
diarrhea
meperidine HCl [From Demerol] Allergy (Verified 01/11/23 08:58)
Hives
morphine Allergy (Verified 01/11/23 08:58)
Hives
oxycodone HCl [From Percocet] Allergy (Verified 01/11/23 08:58)
Vomiting
sulfamethoxazole [From Bactrim] Allergy (Verified 01/11/23 08:58)
diarrhea 'in the past'
trimethoprim [From Bactrim] Allergy (Verified 01/11/23 08:58)
diarrhea 'in the past'
indixanol Allergy (Uncoded 01/11/23 08:58)
Hives
Medications Reviewed: Yes
Social History
Tobacco: Former Smoker
Alcohol: None
Drug: None
Family History
Family History: Not Pertinent
Review of Systems
Review of Systems
General: Negative Fever or Chills
All systems: All other systems were reviewed and were negative
Vital Signs
Temp Pulse Resp BP Pulse Ox
98.4 F 67 18 150/70 95
05/03/24 03:05 05/03/24 03:05 05/03/24 03:05 05/03/24 03:05 05/03/24 03:05
Physical Exam
Physical Exam
Constitutional: No Acute Distress
Cardiovascular: Regular Rate and S1/S2; Negative Murmur or Rub
Pulmonary: Clear and Symmetric; Negative Wheezes, Rales or Rhonchi
Gastrointestinal: Soft, Non Tender, Non Distended and Normal Bowel Sounds
Skin: Warm and Dry; Negative Rash or Jaundice
Wound: Other (midline surgical incision - clean, visible muscle and fascia but no erythema, warmth, odor or purulence in the wound bed)
Lines: Other (drains x2 - right drain is purulent)
Lab / Diagnostic Study Results
05/03/24 05:15
05/03/24 05:15
Abs Immat Gran (auto) 0.7 10^3/uL (0-0.05) H 05/03/24 04:44
Absolute Neuts (auto) 18.6 10^3/uL (1.4-6.5) H 05/03/24 04:44
Absolute Lymphs (auto) 1.1 10^3/uL (1.2-3.4) L 05/03/24 04:44
Absolute Monos (auto) 1.5 10^3/uL (0.1-0.6) H 05/03/24 04:44
Absolute Basos (auto) 0.1 10^3/uL (0-0.2) 05/03/24 04:44
Immature Gran % 3.3 % (0-0.5) H 05/03/24 04:44
Neutrophils % 84.7 % (42.2-75.2) H 05/03/24 04:44
Lymphocytes % 4.8 % (20.5-51.1) L 05/03/24 04:44
Monocytes % 6.7 % (1.7-9.3) 05/03/24 04:44
Eosinophils % 0.2 % (0-6) 05/03/24 04:44
Basophils % 0.3 % (0-2) 05/03/24 04:44
Ur Squamous Epith Cells - /LPF (Few) 05/02/24 17:27
Microbiology Results
Micro:
05/02/24 06:43 Blood Culture - Preliminary
Blood/Venous No Growth in 24 hours- Final report to follow
05/02/24 17:27 Urine Culture - Pending
Urine
05/02/24 09:53 Wound Culture - Pending
Eliot Neal Gram Stain - Preliminary
05/02/24 06:57 MRSA Screen - Pending
Nose
Assessment / Plan
Possible secondary peritonitis
Leukocytosis
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
S/p redo anastomosis 04/27 for necrotic anastomosis
Report of ADR (not allergy) with keflex, levofloxacin, bactrim - diarrhea; Bang also listed doxycycline - rash, and augmentin - unknown
DM2
- send second set of blood cultures - need two sets to rule out bacteremia
- culture from the drain - colonization of the drain vs possible early peritonitis
- a CT a/p from 05/01 report is not on chart per Dr Cheung's note no drainable collections yet - will re-request the report
- start zosyn - stop ceftriaxone/metronidazole
- note history of diarrhea with broad spectrum antibiotics which has been bothersome to the patient but is not an allergy - with recent redo anastomosis I would not start probiotics at this time.
[2024-05-03] MEDS: ADVAIR HFA 115/21 MCG INHALER 2 PUFF INH ×2 (07:48→18:07)
[2024-05-03 08:56] LABS: Glycohemoglobin (HgbA1c) 6.5 % (4.0-5.6)
--- NOTE | 2024-05-03 09:05 | PTCARENOTE ---
update to son via PC. added him as primary contact
[2024-05-03] MEDS: NOVOLOG FLEXPEN-MODERATE RESISTANCE SC ×2 (09:12→17:24)
[2024-05-03] MEDS: NSS (PRESERVATIVE FREE) 10 ML IV ×2 (09:20→17:33)
[2024-05-03] MEDS: PROTONIX IV 40 MG IV ×2 (09:20→16:31)
[2024-05-03] MEDS: ROCEPHIN 1000 MG IV (09:21)
[2024-05-03] MEDS: NSS 1000 IV (09:21)
--- NOTE | 2024-05-03 09:34 | W.PN.HOSP.TC ---
Today's Communication/Plan
-
N.p.o., NG tube, IV antibiotics.
Assessment / Plan
Assessment / Plan
Physical exam:
General: Appears chronically ill and No Apparent Distress
HEENT: Normocephalic, Atraumatic and Moist Mucous Membranes
Respiratory: Clear to Auscultation; Negative Wheezes, Rales or Rhonchi
Cardiac: Regular Rhythm and S1/S2
GI: Postop findings, bowel sounds hyperdynamic, CRISTINA with purulent drainage, wound with purulent discharge and fibrotic tissue noted, soft, tender and mild distended
Musculoskeletal: No Clubbing, No Cyanosis and No Edema
Neuro: Awake, Alert and Oriented
Psych: Calm
A/P:
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
Transfer from [place] on 05/01/2024
X-ray of the abdomen and clinical picture is consistent with ileus
N.p.o.
Restart TPN today
NG tube
Colorectal and general surgery surgery consult and follow-up appreciated
PT OT eval
Discussed with surgery today on 05/03
Discussed with at bedside
Persistent leukocytosis, likely related to infected wound:
WBC 23.6--> 22 today
Pseudomonas and wound culture
Change IV Rocephin and Flagyl to IV Zosyn
ID consult appreciated
Anemia:
Hemoglobin 9.8 today
Continue to monitor hemoglobin closely
Paroxysmal atrial fibrillation:
Given n.p.o. change amiodarone to IV
IV Lopressor scheduled
Continue cardiac monitoring
IV Lopressor as needed
Echo reviewed and EF 70 to 75% and no significant valve disease
Cardiology consult appreciated
Delirium:
Fluctuating
Diabetes mellitus type 2:
On insulin sliding scale
Update hemoglobin A1c and it is 6.5
Hypothyroidism:
Continue levothyroxine 50 mcg p.o. daily or IV if prolonged n.p.o.
Hyperlipidemia:
Continue pravastatin 80 mg p.o. nightly when able to take oral
GERD:
On Protonix 40 mg IV daily
Anxiety:
On alprazolam 0.5 mg nightly as needed and will switch to IV as needed
DVT prophylaxis:
Lovenox SQ
CODE STATUS:
Full code
Total time spent on today's encounter was 52 minutes which included time spent in counseling the patient/family regarding diagnosis and treatment plan as listed above, goals of care, and symptom management. Case was discussed with nursing staff,
specialists, and care coordinators/case management. All labs and imaging personally reviewed by me. Remainder the time spent in detailed review of previous records, lab data, imaging, and other medical provider documentation.
Anticipated Discharge: > 48 hours
Subjective/Interval History
-
Date of Service: May 03, 2024
Patient with nausea and vomiting today. She had some liquid stools today. Abdominal pain and discomfort ongoing.
Objective Data
-
Labs:
Laboratory Results
05/03/24 05/03/24 05/03/24
04:44 05:15 08:55
WBC 22.0 H Cancelled
Hgb 9.8 L Cancelled
Hct 30.2 L Cancelled
Plt Count 577 H Cancelled
Sodium 141 Cancelled Pending
Potassium 4.4 Cancelled Pending
Chloride 105 Cancelled Pending
Carbon Dioxide 22 Cancelled Pending
BUN 36 H Cancelled Pending
Creatinine 0.8 Cancelled Pending
Glucose 122 H Cancelled Pending
Calcium 8.4 Cancelled Pending
Vital Signs:
Vital Signs
Temp Pulse Resp BP Pulse Ox
97.8 F 70 16 143/77 97
05/03/24 08:30 05/03/24 08:30 05/03/24 08:30 05/03/24 08:30 05/03/24 08:30
I&O
05/02/24 05/03/24 05/04/24
06:59 06:59 06:59
Intake Total 960 / 960
Output Total
Balance 899 / 899
--- NOTE | 2024-05-03 12:01 | W.PN.CD ---
Today's Communication / Plan
-
Not doing well with PO meds. Fortunately she has central access
- Stop PO Inderal 10 PO BID
- Stop PO Amio 200 daily
- Go to IV Amio 150 mg one time daily
- Go to scheduled Lopressor IV 2.5 TID
Impression / Plan
-
83 yo female with PMH of HTN, multiple med intolerances, coronary artery calcification on CT, dyslipidemia, prior lung cancer, and now new diagnosis of colon cancer. She underwent [facility] 04/22, then back to OR 04/25 for
anastomotic leak/revision. In that setting, she developed A fib with RVR, with hypotension. She was cardioverted and started on amiodarone. She remains in sinus currently. She offers no cardiac complaints. She feels that the loading dose of
amiodarone was causing her to feel mental fogginess/confusion. She was not started on OAC due to elevated bleeding risk associated with her redo surgery, and possible need for additional surgeries/interventions.
PAF with RVR => Now in sinus
- Amio low dose and low dose BB
- No anticoagulation at this time
Nausea
- Not doing well with PO meds
- Stop PO Inderal 10 PO BID
- Stop PO Amio 200 daily
- Go to IV Amio 150 mg one time daily
- Go to scheduled Lopressor IV 2.5 TID
S/p hemicolectomy 04/22/2024, and return to OR for anastomotic leak 04/25/2024
- Per Dr Cheung: CT shows no drainable collection, WBC may from wound
HTN
Coronary artery calcification on CT
Multiple medication intolerance
Subjective:
No CP or dyspnea.
Physical Exam
Vital Signs/Labs
Vital Signs
Temp Pulse Resp BP Pulse Ox
97.8 F 70 16 143/77 97
05/03/24 08:30 05/03/24 08:30 05/03/24 08:30 05/03/24 08:30 05/03/24 08:30
05/02/24 05/03/24 05/04/24
06:59 06:59 06:59
Actual Weight 79.605 kg 79.605 kg
05/03/24 05:15
Physical Exam
Constitutional: No acute distress
Cardiovascular: Rhythm & rate is regular and Pedal edema is absent
Respiratory: Respiratory effort normal and Lungs clear to auscul.
GI: Soft
Data Reviewed
-
Date of Service: May 03, 2024
--- NOTE | 2024-05-03 12:20 | W.PN.GS2 ---
Today's Communication / Plan
-
Start TPN
Place NGT
Assessment / Plan
-
83 yo female with a h/o malignancy in the cecum now s/p open right colectomy on 04/22/24 with subsequent anastomotic leak with repair on 04/27/24 at [facility] transferred to at request of family. Previously on TPN with diet advanced after
transfer; however not tolerating with ongoing nausea and increased abd distention. CT done prior to transfer which reportedly showed no new drainable collection. Wound with dehiscence and purulent drainage in wound bed.
Leukocytosis present but trending down slowly: appreciate ID following
Vomited meds today: Cardiology following with cardiac meds switched to IV
XR obtained this AM and consistent with ileus
Afebrile with stable vital signs
CRISTINA with +pseudomonas on cx
--Place NGT to suction
--Start TPN
--Continue NPO with ice chips for comfort
--Analgesics/antiemetics prn
--Start IVF
--ABX as per ID; changed to zosyn today given +pseudomonas
--Continue local wound care with BID dressing changes/wet to dry packing
--Follow labs. If fevers or worsening leukocytosis will repeat CT imaging
--Cardiology following
--Medical management as per primary team
Subjective Data
-
Date of Service: May 03, 2024
Patient seen and examined at bedside with Dr. Bennett around 1030am. She reports nausea with subsequent episode of vomiting per nursing after exam. She has been passing flatus and liquid stools with frequent episdoes of diarrhea. Pain a little worse
since yesterday. Denies fevers/chills.
Objective Data
-
Intake and Output
05/02/24 05/03/24 05/04/24
06:59 06:59 06:59
Intake Total 960 / 960
Output Total 61 / 61
Balance 899 / 899
Intake:
Oral fluids 960 / 960
Output:
Drain Output (Total)
Left Abdomen Eliot-Neal 40 / 40
Right Abdomen Eliot-Neal
Other:
Number of approximated MODERATE 2 1
amounts of urine
Vital Signs
Temp Pulse Resp BP Pulse Ox
98.3 F 72 16 154/77 97
05/03/24 12:00 05/03/24 12:00 05/03/24 12:00 05/03/24 12:00 05/03/24 12:00
Lab Results
05/03/24 05:15
Calcium Cancelled 05/03/24 05:15
Total Bilirubin 0.5 mg/dl (0.2-1.3) 05/02/24 06:43
AST 24 U/L (14-36) 05/02/24 06:43
ALT 16 U/L (0-35) 05/02/24 06:43
Alkaline Phosphatase 83 U/L (38-126) 05/02/24 06:43
Total Protein 5.1 g/dl (6.3-8.2) L 05/02/24 06:43
Albumin 2.7 g/dl (3.5-5.0) L 05/02/24 06:43
Physical Exam
-
NAD
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
CRISTINA to right abd with purulent drainage, CRISTINA to left abd with serous drainage but with erythema surrounding insertion site
Midline incision opened to center with purulent discharge and fibrotic tissue noted, exposed fascial suture
[2024-05-03] MEDS: DESENEX/MITRAZOL/ZEASORB 1 APPLIC TOPICAL ×2 (13:01→20:15)
[2024-05-03] MEDS: LOPRESSOR 2.5 MG IV ×2 (13:02→17:36)
[2024-05-03] MEDS: PEPCID PO (13:02)
[2024-05-03] MEDS: CORDARONE 103 MG IV (13:04)
[2024-05-03] MEDS: ZOSYN 100 IV ×2 (13:05→20:15)
[2024-05-03 13:24] LABS: Blood Urea Nitrogen 37 mg/dl (7-17); Calcium 8.5 mg/dl (8.4-10.2); Carbon Dioxide 20 mmol/L (22-30); Chloride 107 mmol/L (98-107); Estimated Creatinine Clearance 54 ml/min; Glucose 129 mg/dl (70-99); Magnesium 1.8 mg/dl (1.6-2.3); Phosphorus 3.8 mg/dl (2.5-4.5); Potassium 4.3 mmol/L (3.5-5.1); Sodium 139 mmol/L (135-145); Triglycerides 134 mg/dl (10-149); eGFR > 60.00
[2024-05-03 13:36] LABS: Glucose - Point of Care 168 mg/dl (70-99)
[2024-05-03] MEDS: NOVOLOG FLEXPEN-MODERATE RESISTANCE 1 UNITS SC (14:20)
[2024-05-03] MEDS: OFIRMEV 100 IV ×2 (15:29→23:56)
[2024-05-03] MEDS: STERILE WATER FOR INJECTION IV (15:30)
[2024-05-03] MEDS: INDERAL PO (15:30)
[2024-05-03] MEDS: LOVENOX 40 MG SC (16:32)
--- NOTE | 2024-05-03 16:58 | PTCARENOTE ---
1200 pt vomited after taking a sip of water to take oral meds. Dr. Ryan ordered NGT based on Abd XR and vomiting.
--- NOTE | 2024-05-03 17:02 | PTCARENOTE ---
of pt was again aggressive in behavior, almost stalking nurse. Charge nurse almost put security on alert. He is forgetful and confused at times and would like updates every 20-30mins then becomes upset with answers or if doctors are not
available. Family /pt extremely time consuming. Telling nurse I took his insurance papers, nurse explaining I recommended he go to Admissions yesterday with his questions or call the number to his insurance company provided on the paper. This info I
repeated today also. After he went out for lunch he seemed more relaxed and they appreciated Dr. Guerra time and update.
[2024-05-03 17:08] LABS: Glucose - Point of Care 124 mg/dl (70-99)
[2024-05-03] MEDS: OFIRMEV IV (17:31)
[2024-05-03] MEDS: Parenteral Nutrition, Central 890 IV (20:58)
[2024-05-03] MEDS: NSS (PRESERVATIVE FREE) 8 ML IV (22:07)
[2024-05-03] MEDS: PEPCID 20 MG IV (22:07)
[2024-05-04] MEDS: LOPRESSOR 2.5 MG IV ×4 (00:21→16:52)
[2024-05-04 00:25] LABS: Glucose - Point of Care 198 mg/dl (70-99)
[2024-05-04] MEDS: NOVOLOG FLEXPEN-MODERATE RESISTANCE 0.1 UNITS SC (00:30)
[2024-05-04] MEDS: ZOSYN 100 IV ×4 (02:03→20:49)
[2024-05-04 03:01] VITALS: BP 135/58
[2024-05-04 05:20] LABS: Hemoglobin 8.7 g/dL (12.0-16.0); Mean Corp Hgb Conc. 32.2 g/dL (33.0-37.0); Mean Corpuscular Hgb 28.4 pg (27.0-31.0); Mean Corpuscular Volume 88.2 fL (81.0-99.0); Mean Platelet Volume 9.6 fL (7.4-10.4); Platelet Count 521 10^3/uL (130-400); Red Blood Cell Count 3.06 10^6/uL (4.20-5.40); Red Cell Dist. Width 18.6 % (11.5-14.5); White Blood Cell Count 15.7 10^3/uL (4.8-10.8)
[2024-05-04 05:38] LABS: ALT (SGPT) 13 U/L (0-35); AST (SGOT) 19 U/L (14-36); Albumin 2.3 g/dl (3.5-5.0); Alkaline Phosphatase 62 U/L (38-126); Blood Urea Nitrogen 30 mg/dl (7-17); Calcium 7.7 mg/dl (8.4-10.2); Carbon Dioxide 21 mmol/L (22-30); Chloride 108 mmol/L (98-107); Direct Bilirubin 0.2 mg/dl (0.0-0.4); Estimated Creatinine Clearance 48 ml/min; Glucose 168 mg/dl (70-99); Magnesium 1.8 mg/dl (1.6-2.3); Phosphorus 3.5 mg/dl (2.5-4.5); Potassium 4.2 mmol/L (3.5-5.1); Sodium 140 mmol/L (135-145); Total Bilirubin 0.4 mg/dl (0.2-1.3); Total Protein 4.5 g/dl (6.3-8.2); Triglycerides 115 mg/dl (10-149); eGFR > 60.00
[2024-05-04] MEDS: OFIRMEV 100 IV ×2 (05:38→11:45)
[2024-05-04 05:49] LABS: Prealbumin (Transthyretin) 19.1 mg/dl (17.6-36.0)
[2024-05-04 05:59] LABS: Glucose - Point of Care 176 mg/dl (70-99)
[2024-05-04] MEDS: NOVOLOG FLEXPEN-MODERATE RESISTANCE 1 UNITS SC ×3 (06:04→17:08)
[2024-05-04 06:09] VITALS: BMI 27.4
[2024-05-04] MEDS: NSS 1000 IV ×2 (07:05→21:49)
[2024-05-04 07:30] VITALS: BP 165/79
[2024-05-04] MEDS: CHLORASEPTIC/SORE THROAT SPRAY 1 SPRAY PO (07:31)
[2024-05-04] MEDS: PROTONIX IV 40 MG IV ×2 (07:32→20:49)
[2024-05-04] MEDS: NSS (PRESERVATIVE FREE) 10 ML IV ×2 (07:34→20:51)
[2024-05-04] MEDS: DESENEX/MITRAZOL/ZEASORB 1 APPLIC TOPICAL ×2 (07:34→21:33)
--- NOTE | 2024-05-04 07:37 | W.PN.HOSP.TC ---
Today's Communication/Plan
-
N.p.o. IV fluids and NG tube. IV antibiotic
Assessment / Plan
Assessment / Plan
Physical exam:
General: Acute on chronically ill
HEENT: Normocephalic, Atraumatic and Moist Mucous Membranes
Respiratory: Clear to Auscultation; Negative Wheezes, Rales or Rhonchi
Cardiac: Regular Rhythm and S1/S2
GI: Postop findings, bowel sounds hyperdynamic, CRISTINA with purulent drainage on the right and serous on the left, wound with purulent discharge much less today and fibrotic tissue noted, soft, tender and less distended.
Musculoskeletal: No Clubbing, No Cyanosis and No Edema
Neuro: Awake, Alert and Oriented
Psych: Calm
A/P:
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
Transfer from [place] on 05/01/2024
X-ray of the abdomen and clinical picture is consistent with ileus
N.p.o.
Continue IV fluids
Continue TPN
NG tube
Colorectal and general surgery surgery consult and follow-up appreciated
Continue local wound care
Discussed with surgery on 05/03
Discussed with at bedside yesterday
PT OT eval
Persistent leukocytosis, likely related to infected wound, rule out secondary peritonitis:
WBC 23.6--> 22--> 15.7 today
Pseudomonas and yeast in wound culture
Cont IV Zosyn
ID consult appreciated
Anemia:
Hemoglobin 9.8 today
Continue to monitor hemoglobin closely
Paroxysmal atrial fibrillation:
Given n.p.o. continue IV amiodarone 150 mg daily
IV Lopressor scheduled, 2.5 mg every 6 hours
Continue cardiac monitoring
Echo reviewed and EF 70 to 75% and no significant valve disease
Cardiology consult appreciated
Delirium:
Fluctuating
Anemia:
Hemoglobin 9.3--> 8.7
Continue to monitor hemoglobin
Diabetes mellitus type 2:
On insulin sliding scale
Update hemoglobin A1c and it is 6.5
Hypothyroidism:
Hold levothyroxine for now but if prolonged n.p.o. status then will switch to IV.
Hyperlipidemia:
Hold pravastatin while n.p.o.
GERD:
On Protonix 40 mg IV twice a day and IV Pepcid daily
Anxiety:
Hold oral alprazolam and continue IV Ativan as needed
DVT prophylaxis:
Lovenox SQ
CODE STATUS:
Full code
Total time spent on today's encounter was 52 minutes which included time spent in counseling the patient/family regarding diagnosis and treatment plan as listed above, goals of care, and symptom management. Case was discussed with nursing staff,
specialists, and care coordinators/case management. All labs and imaging personally reviewed by me. Remainder the time spent in detailed review of previous records, lab data, imaging, and other medical provider documentation.
Anticipated Discharge: > 48 hours
Subjective/Interval History
-
Date of Service: May 04, 2024
Patient less abdominal pain. Less NG tube output. No nausea or vomiting today. Passing some liquid stools. No chest pain or shortness of breath. Afebrile
Objective Data
-
Labs:
Laboratory Results
05/04/24
04:13
WBC 15.7 H
Hgb 8.7 L
Hct 27.0 L
Plt Count 521 H
Sodium 140
Potassium 4.2
Chloride 108 H
Carbon Dioxide 21 L
BUN 30 H
Creatinine 0.9
Glucose 168 H
Calcium 7.7 L
Total Bilirubin 0.4
AST 19
ALT 13
Alkaline Phosphatase 62
Vital Signs:
Vital Signs
Temp Pulse Resp BP Pulse Ox
98.7 F 66 18 165/79 97
05/04/24 07:30 05/04/24 07:30 05/04/24 07:30 05/04/24 07:30 05/04/24 07:30
I&O
05/03/24 05/04/24 05/05/24
06:59 06:59 06:59
Intake Total 960 / 960 2776 / 2776
Output Total 61 / 61 870 / 870
Balance 899 / 899 1906 / 1906
[2024-05-04] MEDS: CORDARONE 103 MG IV (07:48)
[2024-05-04] MEDS: ADVAIR HFA 115/21 MCG INHALER 2 PUFF INH ×2 (08:08→17:57)
--- NOTE | 2024-05-04 08:43 | W.PN.GS2 ---
Addendum entered and electronically signed by MIGUEL Mcguire 05/04/24 15:36:
Will plan for CT a/p tomorrow with IV and PO contrast.
h/o IV dye allergy: hydrocortisone/benadryl prep ordered per protocol to begin to night after timing of study discussed with CT department
Original Note:
Today's Communication / Plan
-
NPO/NGT/TPN, local wound care
Assessment / Plan
-
83 yo female with a h/o malignancy in the cecum now s/p open right colectomy on 04/22/24 with subsequent anastomotic leak with repair on 04/27/24 at [facility] transferred to at request of family. Wound with dehiscence and purulent drainage in
wound bed. CT done prior to transfer which reportedly showed no new drainable collection. Previously on TPN with diet advanced after transfer; however not tolerating with ongoing nausea and increased abd distention and vomiting on 05/03, made NPO and
TPN resumed.
Leukocytosis present but trending down: appreciate ID following
Cardiology following with cardiac meds switched to IV
Ileus present with NGT placed on 05/03 with improvement in GI symptoms, await bowel recovery. Bilious outputs noted.
Afebrile with stable vital signs
CRISTINA cx with +pseudomonas
R CRISTINA with purulent drainage, Left with serous
Wound bed with less purulent drainage today, improving
--Continue with NGT to suction
--Continue TPN, appreciate glove stitcher following
--Continue NPO with ice chips for comfort
--Analgesics/antiemetics; Ofirmev, Toradol (nausea with narcotics)
--Continue IVF
--ABX as per ID; changed to zosyn today given +pseudomonas
--Continue local wound care with BID dressing changes/wet to dry packing
--Follow labs. If fevers or worsening leukocytosis will repeat CT imaging
--Cardiology following
--Medical management as per primary team
Subjective Data
-
Date of Service: May 04, 2024
Patient seen and examined at bedside with Dr. Bennett. Notes symptomatic relief of abdominal pain and n/v with NGT placement. Denies significant pain. Denies active nausea. Passing some small liquid stools.
Objective Data
-
Intake and Output
05/03/24 05/04/24 05/05/24
06:59 06:59 06:59
Intake Total 960 / 960 2776 / 2776 286 / 286
Output Total 870 / 870
Balance 899 / 899 1906 / 1906 286 / 286
Intake:
Oral fluids 960 / 960 0 / 0
IV fluids (Total) 1760 / 1760 80 / 80
IV piggybacks 556 / 556 206 / 206
TPN/PPN 370 / 370
Amount instilled into GI Tube ( 90 / 90
Total)
[place] Sump 90 / 90
Output:
Emesis 100 / 100
Drain Output (Total)
Left Abdomen Eliot-Neal 40 / 40 5 / 5
Right Abdomen Eliot-Neal 21 / 5 / 5
Gastrointestinal tube output ( 760 / 760
Total)
[place] Sump 760 / 760
Other:
Number of approximated MODERATE 2 3
amounts of urine
Number of approximated LARGE 1 1
amounts of urine
Vital Signs
Temp Pulse Resp BP Pulse Ox
98.7 F 76 14 165/79 96
05/04/24 07:30 05/04/24 08:16 05/04/24 08:16 05/04/24 07:30 05/04/24 08:16
Lab Results
05/04/24 04:13
05/04/24 04:13
Calcium 7.7 mg/dl (8.4-10.2) L 05/04/24 04:13
Phosphorus 3.5 mg/dl (2.5-4.5) 05/04/24 04:13
Magnesium 1.8 mg/dl (1.6-2.3) 05/04/24 04:13
Total Bilirubin 0.4 mg/dl (0.2-1.3) 05/04/24 04:13
Direct Bilirubin 0.2 mg/dl (0.0-0.4) 05/04/24 04:13
AST 19 U/L (14-36) 05/04/24 04:13
ALT 13 U/L (0-35) 05/04/24 04:13
Alkaline Phosphatase 62 U/L (38-126) 05/04/24 04:13
Total Protein 4.5 g/dl (6.3-8.2) L 05/04/24 04:13
Albumin 2.3 g/dl (3.5-5.0) L 05/04/24 04:13
Physical Exam
-
NAD
ABD softly distended, mild tenderness, DIRECTOR OF ARCHIVES
NGT with bilious outputs
CRISTINA to right abd with purulent drainage, CRISTINA to left abd with serous drainage but with erythema surrounding insertion site
Midline incision with center zack previously removed. Minimal purulent SSF to wound bed with fibrotic tissue noted, exposed fascial suture
[2024-05-04] MEDS: NSS IV (11:13)
[2024-05-04 11:42] LABS: Glucose - Point of Care 182 mg/dl (70-99)
[2024-05-04 11:53] VITALS: BP 149/67
--- NOTE | 2024-05-04 14:17 | W.PN.ID1 ---
Date of Service
Date of Service: May 04, 2024
Today's Communication
- c/w zosyn
- add micafungin for now
Assessment / Plan
Possible secondary peritonitis
Leukocytosis
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
S/p redo anastomosis 04/27 for necrotic anastomosis
Report of ADR (not allergy) with keflex, levofloxacin, bactrim - diarrhea; Red Level also listed doxycycline - rash, and augmentin - unknown
DM2
- blood cultures x2 in progress no growth to date
- culture from the drain - colonization of the drain vs possible early peritonitis
- Pseudomonas and yeast - lab will ID the yeast
- a CT a/p from 05/01 report is not on chart per Dr Cheung's note no drainable collections yet - re-requested the report (expected sunday)
- c/w zosyn
- add micafungin for now
- note history of diarrhea with broad spectrum antibiotics which has been bothersome to the patient but is not an allergy - with recent redo anastomosis I would not start probiotics at this time.
Chief Complaint
-: Other (peritonitis)
Subjective / Review of Systems
afebrile
bp stable
note overnight events with of patient being forgetful
ngt was placed - bilious output
Vital Signs / Physical Exam
Vital Signs
Vital Signs
Temp Pulse Resp BP Pulse Ox
97.6 F 66 16 149/67 97
05/04/24 11:53 05/04/24 11:53 05/04/24 11:53 05/04/24 11:53 05/04/24 11:53
Physical Exam
Constitutional: No Acute Distress and Chronically Ill
Cardiovascular: Regular Rate and S1/S2; Negative Murmur or Rub
Pulmonary: Clear and Symmetric; Negative Wheezes or Rales
Gastrointestinal: Soft, Non Tender, Non Distended and Normal Bowel Sounds
Skin: Warm and Dry; Negative Rash or Jaundice
Objective Data
Lab Data
Lab Results
05/04/24 04:13
05/04/24 04:13
Estimated Creat Clear 48 ml/min 05/04/24 04:13
Total Bilirubin 0.4 mg/dl (0.2-1.3) 05/04/24 04:13
AST 19 U/L (14-36) 05/04/24 04:13
ALT 13 U/L (0-35) 05/04/24 04:13
Alkaline Phosphatase 62 U/L (38-126) 05/04/24 04:13
Most recent labs reviewed.
Micro Results:
05/03/24 12:22 Blood Culture - Preliminary
Blood/Venous No Growth in 24 hours- Final report to follow
05/02/24 09:53 Wound Culture - Final
Eliot Neal Pseudomonas aeruginosa
Yeast
Gram Stain - Final
05/02/24 06:43 Blood Culture - Preliminary
Blood/Venous No Growth in 48 hours- Final report to follow
05/02/24 17:27 Urine Culture - Final
Urine NO GROWTH
05/02/24 06:57 MRSA Screen - Final
Nose No Methicillin Resistant Staphylococcus aureus isolated.
[2024-05-04] MEDS: ANESTHETIC LOZENGE 1 LOZENGE PO ×2 (14:42→16:47)
[2024-05-04 15:37] VITALS: BP 150/59
[2024-05-04] MEDS: MYCAMINE 105 MG IV (16:48)
[2024-05-04] MEDS: LOVENOX 40 MG SC (16:51)
[2024-05-04 17:11] LABS: Glucose - Point of Care 167 mg/dl (70-99)
--- NOTE | 2024-05-04 17:28 | PTCARENOTE ---
pt c/o unbearable irritation of throat, is crying stated she can not take it anymore, threatening to remove tube. LASER ENGRAVER ordered cough drops and then ordered dexamethasone. spoke with pt understanding her needs and she seemed to relax.
visited today and was pleasant with no issues, appreciated update.
[2024-05-04 19:50] VITALS: BP 130/58
--- NOTE | 2024-05-04 20:12 | W.PN.CD ---
Today's Communication / Plan
-
Continue:
- IV Amio 150 mg one time daily
- Lopressor IV 2.5 TID
When tolerating PO go back to prior regimen
Monitor HR for need to adjust regimen
Impression / Plan
-
83 yo female with PMH of HTN, multiple med intolerances, coronary artery calcification on CT, dyslipidemia, prior lung cancer, and now new diagnosis of colon cancer. She underwent right hemicolectomy at [facility] 04/22, then back to OR 04/25 for
anastomotic leak/revision. In that setting, she developed A fib with RVR, with hypotension. She was cardioverted and started on amiodarone. She remains in sinus currently. She offers no cardiac complaints. She feels that the loading dose of
amiodarone was causing her to feel mental fogginess/confusion. She was not started on OAC due to elevated bleeding risk associated with her redo surgery, and possible need for additional surgeries/interventions.
PAF with RVR =>Still in sinus
- Amio low dose and low dose BB
- No anticoagulation at this time
Nausea
- Not doing well with PO meds
- Stop PO Inderal 10 PO BID
- Stop PO Amio 200 daily
- Go to IV Amio 150 mg one time daily
- Go to scheduled Lopressor IV 2.5 TID
ID
- Abdominal infection suspected
- ID involved, pt on Zosyn and micafungin added
S/p hemicolectomy 04/22/2024, and return to OR for anastomotic leak 04/25/2024
- Per Dr Cheung: CT shows no drainable collection, WBC may from wound
HTN
Coronary artery calcification on CT
Multiple medication intolerance
Subjective:
No CP or dyspnea.
Physical Exam
Vital Signs/Labs
Vital Signs
Temp Pulse Resp BP Pulse Ox
98.4 F 66 20 130/58 97
05/04/24 19:50 05/04/24 19:50 05/04/24 19:50 05/04/24 19:50 05/04/24 19:50
05/03/24 05/04/24 05/05/24
06:59 06:59 06:59
Actual Weight 79.605 kg 79.152 kg
05/04/24 04:13
05/04/24 04:13
Magnesium 1.8 mg/dl (1.6-2.3) 05/04/24 04:13
Triglycerides 115 mg/dl (10-149) 05/04/24 04:13
Physical Exam
Constitutional: No acute distress
Cardiovascular: Rhythm & rate is regular and Pedal edema is absent
Respiratory: Respiratory effort normal and Lungs clear to auscul.
GI: Soft and Distention absent
Neuro/Psych: AO x 3
Data Reviewed
-
Date of Service: May 04, 2024
[2024-05-04] MEDS: NSS (PRESERVATIVE FREE) 8 ML IV (21:01)
[2024-05-04] MEDS: PEPCID 20 MG IV (21:01)
[2024-05-04] MEDS: Parenteral Nutrition, Central 1300 IV (21:34)
[2024-05-04 22:49] VITALS: BP 144/54
[2024-05-04 23:44] LABS: Glucose - Point of Care 206 mg/dl (70-99)
[2024-05-05] VITALS (7 sets, daily range): BP systolic 124–167; BP diastolic 46–75; BMI 27.7
[2024-05-05] MEDS: DECADRON 7.5 MG IV
[2024-05-05] MEDS: LOPRESSOR 2.5 MG IV ×4 (00:15→17:56)
[2024-05-05] MEDS: NOVOLOG FLEXPEN-MODERATE RESISTANCE 300 UNITS SC (00:18)
[2024-05-05] MEDS: ANESTHETIC LOZENGE 1 LOZENGE PO (00:59)
[2024-05-05] MEDS: ZOSYN 100 IV ×4 (01:00→20:46)
[2024-05-05] MEDS: DECADRON IV ×2 (04:19→08:00)
[2024-05-05 05:06] LABS: Glucose - Point of Care 269 mg/dl (70-99)
[2024-05-05] MEDS: NOVOLOG FLEXPEN-MODERATE RESISTANCE 5 UNITS SC ×3 (05:06→23:57)
--- NOTE | 2024-05-05 05:23 | W.PN.HOSP.TC ---
Today's Communication/Plan
-
Follow up CT w contrast
TPN as per CRS
abx antifungal as per ID
rate rhythm control as per cardio
Assessment / Plan
Assessment / Plan
Physical exam:
General: no acute distress, appears comfortable
HEENT: Normocephalic, Atraumatic and Moist Mucous Membranes, NGT in place
Respiratory: Clear to Auscultation; Negative Wheezes, Rales or Rhonchi
Cardiac: Regular Rhythm and S1/S2
GI: soft, nontender, bowel sounds present
Musculoskeletal: No Clubbing, No Cyanosis and No Edema
Neuro: Awake, Alert and Oriented
Psych: Calm
A/P:
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
Transfer from [place] on 05/01/2024
X-ray of the abdomen and clinical picture is consistent with ileus
N.p.o.
Continue IV fluids
Continue TPN
NG tube
Colorectal and general surgery surgery consult and follow-up appreciated
Continue local wound care
PT OT eval appreciated Home services
Persistent leukocytosis, likely related to infected wound, rule out secondary peritonitis:
Pseudomonas and yeast in wound culture
Cont IV Zosyn
ID consult appreciated
Anemia:
Hemoglobin 9.8 today
Continue to monitor hemoglobin closely
Paroxysmal atrial fibrillation:
Given n.p.o. continue IV amiodarone 150 mg daily
IV Lopressor scheduled, 2.5 mg every 6 hours
Continue cardiac monitoring
Echo reviewed and EF 70 to 75% and no significant valve disease
Cardiology consult appreciated
Delirium:
Fluctuating
Anemia:
Hemoglobin 9.3--> 8.7
Continue to monitor hemoglobin
Diabetes mellitus type 2:
On insulin sliding scale
Update hemoglobin A1c and it is 6.5
Hypothyroidism:
Hold levothyroxine for now but if prolonged n.p.o. status then will switch to IV.
Hyperlipidemia:
Hold pravastatin while n.p.o.
GERD:
On Protonix 40 mg IV twice a day and IV Pepcid daily
Anxiety:
Hold oral alprazolam and continue IV Ativan as needed
DVT prophylaxis:
Lovenox SQ
CODE STATUS:
Full code
Total time spent on today's encounter was 45 minutes which included time spent in counseling the patient/family regarding diagnosis and treatment plan as listed above, goals of care, and symptom management. Case was discussed with nursing staff,
specialists, and care coordinators/case management. All labs and imaging personally reviewed by me. Remainder the time spent in detailed review of previous records, lab data, imaging, and other medical provider documentation.
Anticipated Discharge: 24 - 48 hours
Subjective/Interval History
-
Date of Service: May 05, 2024
No acute distress sitting up comfortably in chair. Brother present during evaluation. Denies pain.
Objective Data
-
Labs:
Laboratory Results
05/05/24
06:00
WBC Pending
Hgb Pending
Hct Pending
Plt Count Pending
Sodium Pending
Potassium Pending
Chloride Pending
Carbon Dioxide Pending
BUN Pending
Creatinine Pending
Glucose Pending
Calcium Pending
Total Bilirubin Pending
AST Pending
ALT Pending
Alkaline Phosphatase Pending
Vital Signs:
Vital Signs
Temp Pulse Resp BP Pulse Ox
98.4 F 66 20 149/60 96
05/05/24 03:13 05/05/24 05:00 05/05/24 03:13 05/05/24 05:00 05/05/24 03:13
I&O
11/09/24 11/10/24 11/11/24
06:59 06:59 06:59
Intake Total 960 / 960 2776 / 2776 1361 / 1361
Output Total 61 / 61 870 / 870 46 / 46
Balance 899 / 899 1906 / 1906 1315 / 1315
[2024-05-05 06:41] LABS: Hematocrit 25.8 % (37.0-47.0); Hemoglobin 8.5 g/dL (12.0-16.0); Mean Corp Hgb Conc. 32.9 g/dL (33.0-37.0); Mean Corpuscular Hgb 28.5 pg (27.0-31.0); Mean Corpuscular Volume 86.6 fL (81.0-99.0); Mean Platelet Volume 9.5 fL (7.4-10.4); Platelet Count 561 10^3/uL (130-400); Red Blood Cell Count 2.98 10^6/uL (4.20-5.40); Red Cell Dist. Width 17.9 % (11.5-14.5); White Blood Cell Count 15.3 10^3/uL (4.8-10.8)
[2024-05-05 06:59] LABS: ALT (SGPT) 14 U/L (0-35); AST (SGOT) 18 U/L (14-36); Albumin 2.4 g/dl (3.5-5.0); Alkaline Phosphatase 57 U/L (38-126); Blood Urea Nitrogen 21 mg/dl (7-17); Calcium 7.8 mg/dl (8.4-10.2); Carbon Dioxide 20 mmol/L (22-30); Chloride 108 mmol/L (98-107); Estimated Creatinine Clearance 61 ml/min; Glucose 240 mg/dl (70-99); Magnesium 1.7 mg/dl (1.6-2.3); Phosphorus 2.5 mg/dl (2.5-4.5); Sodium 139 mmol/L (135-145); Total Bilirubin 0.3 mg/dl (0.2-1.3); Total Protein 4.7 g/dl (6.3-8.2); Triglycerides 112 mg/dl (10-149); eGFR > 60.00
[2024-05-05 07:04] LABS: Potassium 4.4 mmol/L (3.5-5.1)
[2024-05-05] MEDS: ADVAIR HFA 115/21 MCG INHALER 2 PUFF INH ×2 (07:18→19:29)
--- NOTE | 2024-05-05 07:42 | PTCARENOTE ---
Pt took first dose of Dexamethasone, refused subsequent doses. Pt has an NGT can not take oral contrast, I reached out to overnight HOT PIPE GAUGER, dayshift hospitalist and was ultimately told to reach out to surgeon. I TT Dr. Arjun Wolf, no response yet.
Dayshift nurse is aware and so is electronics technology department chair.
[2024-05-05] MEDS: DESENEX/MITRAZOL/ZEASORB 1 APPLIC TOPICAL ×2 (08:21→20:48)
[2024-05-05] MEDS: CORDARONE 103 MG IV (08:21)
[2024-05-05] MEDS: PROTONIX IV 40 MG IV ×2 (08:22→20:45)
[2024-05-05] MEDS: NSS (PRESERVATIVE FREE) 10 ML IV ×2 (08:22→20:45)
--- NOTE | 2024-05-05 10:31 | W.PN.CD ---
Today's Communication / Plan
-
Continue IV rate/rhythm control with amiodarone/metoprolol.
Convert to PO medications when possible.
CT A/P today.
Impression / Plan
-
Impression/Plan: 83 yo female with PMH of HTN, multiple medication intolerances, coronary artery calcification (on CT), dyslipidemia, prior lung cancer, and now new diagnosis of colon cancer s/p right hemicolectomy at [facility] on
04/22/2024 complicated by anastomotic leak requiring revision on 04/25/2024, subsequently developing atrial fibrillation with RVR with hypotension requiring cardioversion and amiodarone.
#Atrial Fibrillation with RVR
-Paroxysmal, post operative.
-Symptomatic with hypotension, requiring DC cardioversion.
-Rate/rhythm control with IV amiodarone 150 mg daily and metoprolol 2.5 mg TID.
-CHADS2-Vasc = 4 (HTN, Age x2, Female).
-Therapeutic anticoagulation on hold due to risks of post operative bleeding, potential need for subsequent procedures.
#Nausea
-Acute.
-Not doing well with PO meds.
-TPN started.
#Cecal Adenocarcinoma
-S/P hemicolectomy 04/22/2024, and return to OR for anastomotic leak 04/25/2024.
-Abdominal wound dehiscence, infection suspected.
-CRISTINA drain with many Pseudomonas (burton sensitive) and yeast (not yet ID'ed).
-ID involved, pt on piperacillin tazobactam, micafungin added.
-CT A/P (05/01/2024) shows no drainable collections at that time, repeat CT A/P pending today.
#HTN
#Coronary artery calcification on CT
#Multiple medication intolerances
Subjective/Interval History:
Patient not doing well with NGT.
Weight stable.
BP mildly elevated.
WBC trending down 15.3.
Hbg down to 8.5 (9.3 at admission).
DATA:
TTE, 05/02/2024:
CONCLUSIONS
Hyperdynamic left ventricular systolic function. LV ejection fraction is 70-
75%.
Normal right ventricular size. Normal right ventricular systolic function.
No significant valve disease.
Compared to 03/02/23: no significant change. Asc Ao was not well seen on current
study, and measured 3.9 cm on prior study.
Physical Exam
Vital Signs/Labs
Vital Signs
Temp Pulse Resp BP Pulse Ox
36.6 C 66 16 152/61 97
05/05/24 08:00 05/05/24 08:00 05/05/24 08:00 05/05/24 08:00 05/05/24 08:00
05/03/24 05/04/24 05/05/24
11:59 11:59 11:59
Actual Weight 79.605 kg 79.152 kg 80.059 kg
05/05/24 05:48
05/05/24 05:48
Magnesium 1.7 mg/dl (1.6-2.3) 05/05/24 05:48
Triglycerides 112 mg/dl (10-149) 05/05/24 05:48
Physical Exam
Constitutional: No acute distress and Comfortable
EENT: Anicteric and Moist mucous membranes
Cardiovascular: Rhythm & rate is regular, Pedal edema is absent, JVD pressure is normal, S1S2 is normal and Murmur/rub/gallop absent
Respiratory: Respiratory effort normal, Lungs clear to auscul., Wheeze Absent, Crackles Absent and Rhonchi Absent
GI: Soft and Abdomen is tender
Neuro/Psych: AO x 3
Data Reviewed
-
Date of Service: May 05, 2024
Medical Decision Making: Reviewed Test Results, Independent Historian Assessment and Test Interpretation
EKG: Tracing Personally Visualized and interpreted and Report Reviewed by me
Echo: Report Reviewed by me
X-Ray/CT/US/MRI/NUC/PET: Image Personally Visualized and interpreted and Report Reviewed by me
Labs: Labs Reviewed by me
Old Records: Reviewed
--- NOTE | 2024-05-05 10:44 | W.PN.CRS1 ---
Today's Communication / Plan
-
As below
Assessment/Plan
-
83-year-old female with PMH of HTN, HLD, COPD, CKD stage III, MS, lung cancer s/p partial lung resection, colon cancer (recent open RHC on 04/22/2024, complicated by A-fib with RVR and anastomotic leak requiring takeback and revision of anastomosis
on 04/27, transferred to [place] per family request on 05/02); now with open midline wound and to CRISTINA drains bilaterally
-developed N/V requiring NG tube, now with leukocytosis; CT scan was ordered with steroids and Benadryl pre-meds for contrast allergy, but patient refused
AFVSS
WBC 15.3 from 15.7, Hb stable, CR 0.7
� Persistent leukocytosis; had lengthy discussion with patient, willing to undergo CT with IV and p.o. contrast with steroid/Benadryl premedication
�Hydrocortisone 200 mg 5 hours and 1 hour before scan; Benadryl 50 mg 1 hour prior to scan; I ordered CT scan for 4 PM
�Per nurse request, ordered AXR to confirm NGT placement prior to oral contrast administration
�Continue n.p.o. with NGT; having evidence of bowel function; will keep NGT until CT scan
�Continue TPN
� Continue pain control with Tylenol/Toradol
� Continue DVT PPx with Lovenox
�Continue twice daily packing to the midline wound; continue CRISTINA drains to bulb suction
� Encourage OOB/IS
� Appreciate hospitalist
Subjective Data
Subjective Data
Date of Service: May 05, 2024
No overnight events.
Pain controlled.
Denies nausea/vomiting.
+flatus +BMs (small amount over the last 24 hours, nonbloody) +voiding
Pt is OOB.
Objective Data
-
Vital Signs
Temp Pulse Resp BP Pulse Ox
97.8 F 66 16 152/61 97
05/05/24 08:00 05/05/24 08:00 05/05/24 08:00 05/05/24 08:00 05/05/24 08:00
Intake & Output
05/04/24 05/05/24 05/06/24
06:59 06:59 06:59
Intake Total 2776 / 2776 3171 / 3171
Output Total 870 / 870 476 / 476
Balance 1906 / 1906 2695 / 2695
Intake:
Oral fluids 0 / 0
IV fluids (Total) 1760 / 1760 1760 / 1760
IV piggybacks 556 / 556 611 / 611
TPN/PPN 370 / 370 650 / 650
Amount instilled into GI Tube ( 90 / 90 150 / 150
Total)
Ramona Sump 90 / 90 150 / 150
Output:
Emesis 100 / 100
Drain Output (Total) 46 / 46
Left Abdomen Eliot-Neal 5 / 5
Right Abdomen Eliot-Neal 5 / 5 /
Gastrointestinal tube output ( 760 / 760 430 / 430
Total)
Ramona Sump 760 / 760 430 / 430
Other:
Number of approximated MODERATE 3 4
amounts of urine
Number of approximated LARGE 1 1
amounts of urine
Lab Results
05/05/24 05:48
05/05/24 05:48
Physical Exam
-
General: No Acute Distress and AOx3
HEENT: Grossly Normal
Abdomen: Soft, Distended (Mildly distended), Tender (Appropriately tender near midline wound), No Guarding, No Rebound and Other (Left CRISTINA-16 mL serous, right CRISTINA 30 mL purulent)
Skin: Warm and Dry
Wound: No Signs of Infection, Dressing in Place, No Skin Erythema and Other (Packing in place with minimal strikethrough)
[2024-05-05] MEDS: SOLU-CORTEF 51.6 MG IV (11:04)
[2024-05-05] MEDS: NSS 1000 IV (11:41)
[2024-05-05 12:42] LABS: Glucose - Point of Care 297 mg/dl (70-99)
[2024-05-05] MEDS: ZOFRAN 4 MG IV (13:10)
[2024-05-05] MEDS: OMNIPAQUE 50 ML PO (14:02)
[2024-05-05] MEDS: BENADRYL 50 MG IV (15:12)
[2024-05-05] MEDS: SOLU-CORTEF 200 MG IV (15:15)
--- NOTE | 2024-05-05 15:29 | CM ---
Chart reviewed
NPO, has NGT
Wound care
For CT of abdomen/pelvis today
PT/OT evals pending
Plan - TBD based on pts needs closer to discharge
--- NOTE | 2024-05-05 15:58 | PTCARENOTE ---
Addendum entered by Kassidy Genao RN 05/05/24 19:26:
At 16:30 patient returned from Cat Scan; reconnected to NGT suction & TPN (MD & Pharmacy had approved being disconnected for Cat Scan and reconnected upon return to [facility]).
Original Note:
Patient transported to ED Cath Scan via stretcher.
[2024-05-05] MEDS: MYCAMINE 105 MG IV (17:00)
--- NOTE | 2024-05-05 17:14 | W.PN.ID1 ---
Date of Service
Date of Service: May 05, 2024
Today's Communication
- agree with CT with contrast today - will follow up
Assessment / Plan
Possible secondary peritonitis
Leukocytosis
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
S/p redo anastomosis 04/27 for necrotic anastomosis
Report of ADR (not allergy) with keflex, levofloxacin, bactrim - diarrhea; Bang also listed doxycycline - rash, and augmentin - unknown
DM2
- blood cultures x2 in progress no growth to date
- culture from the drain - colonization of the drain vs possible early peritonitis
- Pseudomonas and yeast - lab will ID the yeast
- agree with CT with contrast today - will follow up
- will take need for high dose steroids into account when planning antibiotic course
- c/w zosyn
- c/w micafungin for now
Chief Complaint
-: Other (peritonitis)
Subjective / Review of Systems
afebrile
bp stable
no complaints
for CT
Vital Signs / Physical Exam
Vital Signs
Vital Signs
Temp Pulse Resp BP Pulse Ox
97.7 F 65 16 165/71 99
05/05/24 15:09 05/05/24 15:09 05/05/24 15:09 05/05/24 15:09 05/05/24 15:09
Physical Exam
Constitutional: No Acute Distress
Cardiovascular: Regular Rate and S1/S2; Negative Murmur or Rub
Pulmonary: Clear and Symmetric; Negative Wheezes or Rales
Gastrointestinal: Soft, Non Tender, Non Distended and Normal Bowel Sounds
Skin: Warm and Dry; Negative Rash or Jaundice
Objective Data
Lab Data
Lab Results
05/05/24 05:48
05/05/24 05:48
Estimated Creat Clear 61 ml/min 05/05/24 05:48
Total Bilirubin 0.3 mg/dl (0.2-1.3) 05/05/24 05:48
AST 18 U/L (14-36) 05/05/24 05:48
ALT 14 U/L (0-35) 05/05/24 05:48
Alkaline Phosphatase 57 U/L (38-126) 05/05/24 05:48
Most recent labs reviewed.
Micro Results:
05/03/24 12:22 Blood Culture - Preliminary
Blood/Venous No Growth in 48 hours- Final report to follow
05/02/24 06:43 Blood Culture - Preliminary
Blood/Venous No Growth in 72 hours- Final report to follow
05/02/24 09:53 Wound Culture - Preliminary
Eliot Neal Pseudomonas aeruginosa
Yeast
Gram Stain - Final
05/02/24 17:27 Urine Culture - Final
Urine NO GROWTH
05/02/24 06:57 MRSA Screen - Final
Nose No Methicillin Resistant Staphylococcus aureus isolated.
[2024-05-05 17:56] LABS: Glucose - Point of Care 216 mg/dl (70-99)
[2024-05-05] MEDS: LOVENOX 40 MG SC (17:57)
[2024-05-05] MEDS: NOVOLOG FLEXPEN-MODERATE RESISTANCE 3 UNITS SC (17:57)
[2024-05-05] MEDS: NOVOLOG FLEXPEN 5 UNITS SC (17:58)
[2024-05-05] MEDS: Parenteral Nutrition, Central 1310 IV (21:40)
[2024-05-05] MEDS: NSS (PRESERVATIVE FREE) 8 ML IV (21:50)
[2024-05-05] MEDS: PEPCID 20 MG IV (21:51)
[2024-05-05 23:49] LABS: Glucose - Point of Care 258 mg/dl (70-99)
[2024-05-06] VITALS (7 sets, daily range): BP systolic 141–160; BP diastolic 52–67; PULSE 55–58; O2SAT 97; BMI 27.7
[2024-05-06] MEDS: LOPRESSOR 2.5 MG IV ×5 (00:01→23:52)
[2024-05-06] MEDS: ZOSYN 100 IV ×4 (02:01→19:35)
[2024-05-06] MEDS: NSS 1000 IV ×2 (03:30→16:37)
[2024-05-06] MEDS: ANESTHETIC LOZENGE 1 LOZENGE PO (03:35)
[2024-05-06 05:23] LABS: Blood Urea Nitrogen 20 mg/dl (7-17); Carbon Dioxide 21 mmol/L (22-30); Chloride 107 mmol/L (98-107); Estimated Creatinine Clearance 61 ml/min; Glucose 183 mg/dl (70-99); Potassium 3.5 mmol/L (3.5-5.1); Sodium 139 mmol/L (135-145); eGFR > 60.00
[2024-05-06 05:40] LABS: Glucose - Point of Care 203 mg/dl (70-99)
[2024-05-06] MEDS: NOVOLOG FLEXPEN-MODERATE RESISTANCE 3 UNITS SC (05:41)
[2024-05-06] MEDS: NOVOLOG FLEXPEN 5 UNITS SC ×5 (05:41→23:52)
[2024-05-06] MEDS: ADVAIR HFA 115/21 MCG INHALER 2 PUFF INH ×2 (07:06→19:15)
--- NOTE | 2024-05-06 07:54 | W.PN.HOSP.TC ---
Today's Communication/Plan
-
cont abx antifungal as per ID
PT/OT
TPN wound vac NGT as per CRS
Glycemic control
rate rhythm control as per Cardio
Assessment / Plan
Assessment / Plan
Physical exam:
General: no acute distress, appears comfortable
HEENT: Normocephalic, Atraumatic and Moist Mucous Membranes, NGT in place
Respiratory: Clear to Auscultation; Negative Wheezes, Rales or Rhonchi
Cardiac: Regular Rhythm and S1/S2
GI: soft, nontender, bowel sounds present
Musculoskeletal: No Clubbing, No Cyanosis and No Edema
Neuro: Awake, Alert and Oriented
Psych: Calm
A/P:
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
Transfer from [place] on 05/01/2024
X-ray of the abdomen and clinical picture is consistent with ileus
N.p.o.
Continue IV fluids
Continue TPN as per CRS
NG tube as per CRS
Colorectal and general surgery surgery consult and follow-up appreciated
Continue local wound care
PT OT eval appreciated Home services
Persistent leukocytosis, likely related to infected wound, rule out secondary peritonitis:
Pseudomonas and yeast in wound culture
Cont IV Zosyn
ID consult appreciated
CT appreciated small loculated effusions perisplenic and perihepatic
Anemia:
Hemoglobin 9.8 today
Continue to monitor hemoglobin closely
Paroxysmal atrial fibrillation:
Given n.p.o. continue IV amiodarone 150 mg daily
IV Lopressor scheduled, 2.5 mg every 6 hours
Continue cardiac monitoring
Echo reviewed and EF 70 to 75% and no significant valve disease
Cardiology consult appreciated
Delirium appears resolved at this time
Anemia:
H&H stable
Continue to monitor hemoglobin
Diabetes mellitus type 2:
On insulin sliding scale
Update hemoglobin A1c and it is 6.5
Hypothyroidism:
Hold levothyroxine for now but if prolonged n.p.o. status then will switch to IV.
Hyperlipidemia:
Hold pravastatin while n.p.o.
GERD:
On Protonix 40 mg IV twice a day and IV Pepcid daily
Anxiety:
Hold oral alprazolam and continue IV Ativan as needed
DVT prophylaxis:
Lovenox SQ
CODE STATUS:
Full code
discussed with patient and patient's Robert
I spent a total of 45 minutes with the patient or on the floor. More than 50% of this time involved counseling and coordination of care.
Anticipated Discharge: 24 - 48 hours
Subjective/Interval History
-
Date of Service: May 06, 2024
No acute distress. Appears comfortable at this time. Denies pain or nausea. Endorses Flatus
Objective Data
-
Labs:
Laboratory Results
05/06/24
04:30
Sodium 139
Potassium 3.5
Chloride 107
Carbon Dioxide 21 L
BUN 20 H
Creatinine 0.7
Glucose 183 H
Calcium 8.0 L
Vital Signs:
Vital Signs
Temp Pulse Resp BP Pulse Ox
98.3 F 76 16 162/66 96
05/06/24 02:42 05/06/24 07:13 05/06/24 07:13 05/06/24 05:39 05/06/24 07:13
I&O
05/05/24 05/06/24 05/07/24
06:59 06:59 06:59
Intake Total 3171 / 3171 4647 / 4647
Output Total 476 / 476 616 / 616
Balance 2695 / 2695 4031 / 4031
[2024-05-06] MEDS: CORDARONE 103 MG IV (07:57)
[2024-05-06] MEDS: DESENEX/MITRAZOL/ZEASORB 1 APPLIC TOPICAL ×2 (07:59→20:01)
[2024-05-06] MEDS: NSS (PRESERVATIVE FREE) 10 ML IV ×2 (08:00→19:36)
[2024-05-06] MEDS: PROTONIX IV 40 MG IV ×2 (08:00→20:01)
--- NOTE | 2024-05-06 08:19 | W.PN.CD ---
Today's Communication / Plan
-
Cont amio and metop until able to tolerate PO
Ambulate as able
Impression / Plan
-
Impression/Plan: 83 yo female with PMH of HTN, multiple medication intolerances, coronary artery calcification (on CT), dyslipidemia, prior lung cancer, and now new diagnosis of colon cancer s/p right hemicolectomy at [facility] on
04/22/2024 complicated by anastomotic leak requiring revision on 04/25/2024, subsequently developing atrial fibrillation with RVR with hypotension requiring cardioversion and amiodarone.
#Atrial Fibrillation with RVR
-Paroxysmal, post operative.
-Symptomatic with hypotension, requiring DC cardioversion.
-Rate/rhythm control with IV amiodarone 150 mg daily and metoprolol 2.5 mg TID.
-CHADS2-Vasc = 4 (HTN, Age x2, Female).
-Therapeutic anticoagulation on hold due to risks of post operative bleeding, potential need for subsequent procedures.
#Nausea
-Improving, asking if NG tube could come out
-TPN started.
#Cecal Adenocarcinoma
-S/P hemicolectomy 04/22/2024, and return to OR for anastomotic leak 04/25/2024.
-Abdominal wound dehiscence, infection suspected.
-CRISTINA drain with many Pseudomonas (burton sensitive) and yeast (not yet ID'ed).
-ID involved, pt on piperacillin tazobactam, micafungin added.
-CT A/P (05/01/2024) shows no drainable collections at that time, repeat CT A/P pending today.
#HTN
#Coronary artery calcification on CT
#Multiple medication intolerances
Subjective/Interval History:
Nausea improved, NG tube in asking if it could come out
DATA:
TTE, 05/02/2024:
CONCLUSIONS
Hyperdynamic left ventricular systolic function. LV ejection fraction is 70-
75%.
Normal right ventricular size. Normal right ventricular systolic function.
No significant valve disease.
Compared to 03/02/23: no significant change. Asc Ao was not well seen on current
study, and measured 3.9 cm on prior study.
Physical Exam
Vital Signs/Labs
Vital Signs
Temp Pulse Resp BP Pulse Ox
98.3 F 76 16 162/66 96
05/06/24 02:42 05/06/24 07:13 05/06/24 07:13 05/06/24 05:39 05/06/24 07:13
05/05/24 05/06/24 05/07/24
06:59 06:59 06:59
Actual Weight 176 lb 8 oz 176 lb 9 oz
05/06/24 04:30
Magnesium 1.7 mg/dl (1.6-2.3) 05/05/24 05:48
Triglycerides 112 mg/dl (10-149) 05/05/24 05:48
Physical Exam
Constitutional: No acute distress and Comfortable
EENT: Anicteric
Cardiovascular: Rhythm & rate is regular and Pedal edema is absent
Respiratory: Respiratory effort normal and Lungs clear to auscul.
GI: Soft
Neuro/Psych: AO x 3
Data Reviewed
-
Date of Service: May 06, 2024
EKG: Tracing Personally Visualized and interpreted (sr)
Echo: Report Reviewed by me
Labs: Labs Reviewed by me
--- NOTE | 2024-05-06 08:23 | PN.CDI ---
CDI
- -
CDI:
Physician Documentation Request
Admit Date: 05/01/24 23:03
Dear Doctor Leonardo,
Please review the following and provide your response in the progress notes.
Clinical Indicators:
- 05/02 Wound note indicates Stage 1 sacral pressure injury, POA
Physician documentation of the type and location of wounds is required for compliant documentation. Based on the above clinical findings and your assessment, please provide the following in your progress note:
1. Location of the ulcer/wound, including laterality.
2. Type (etiology) of ulcer/wound:
- Diabetic ulcer
- Arterial (ischemic) ulcer
- Traumatic wound
- Venous stasis ulcer
- Pressure (decubitus) ulcer
- Non-healing surgical wound
- Other
- Unable to determine
Use of terms such as suspected, likely, concern for, or probable (associated with a specific diagnosis that is being evaluated, monitored, or treated as if it exists) are acceptable and can be coded in the inpatient setting, when documented at the
time of discharge.
Thank you,
Kimberly Holden RN
CDI Specialist
Please use your independent medical judgment in providing your response.
*Source: National Pressure Ulcer Advisory Panel (NPUAP)
[2024-05-06 09:06] LABS: % Basophils 0.1 % (0-2); % Eosinophils 0.1 % (0-6); % Immature Granulocytes 2.2 % (0-0.5); % Lymphocytes 7.1 % (20.5-51.1); % Monocytes 8.8 % (1.7-9.3); % Neutrophils 81.7 % (42.2-75.2); Absolute Immature Granulocytes 0.3 10^3/uL (0-0.05); Absolute Monocytes 1.3 10^3/uL (0.1-0.6); Absolute Neutrophils 11.7 10^3/uL (1.4-6.5); Hematocrit 24.1 % (37.0-47.0); Hemoglobin 8.1 g/dL (12.0-16.0); Mean Corp Hgb Conc. 33.6 g/dL (33.0-37.0); Mean Corpuscular Hgb 28.5 pg (27.0-31.0); Mean Corpuscular Volume 84.9 fL (81.0-99.0); Mean Platelet Volume 8.8 fL (7.4-10.4); Nucleated Red Blood Cells % 0 %; Platelet Count 615 10^3/uL (130-400); Red Blood Cell Count 2.84 10^6/uL (4.20-5.40); Red Cell Dist. Width 17.9 % (11.5-14.5); White Blood Cell Count 14.3 10^3/uL (4.8-10.8)
--- NOTE | 2024-05-06 09:08 | W.PN.CRS1 ---
Today's Communication / Plan
-
� NGT clamping trial. Possible clear liquids later.
� Wound vac
Assessment/Plan
-
83-year-old female with PMH of HTN, HLD, COPD, CKD stage III, MS, lung cancer s/p partial lung resection, colon cancer (recent open RHC on 04/22/2024, complicated by A-fib with RVR and anastomotic leak requiring takeback and revision of anastomosis
on 04/27, transferred to [place] per family request on 05/02); now with open midline wound and to CRISTINA drains bilaterally
-developed N/V requiring NG tube, now with leukocytosis; CT scan 05/05/24 with a small amount of loculated perisplenic and perihepatic fluid.
AFVSS
WBC 14.3 from 15.3, CR 0.7; Hgb 8.1 g/dL
� Leukocytosis improving (possibly some steroid effect). Would hold off on aspiration/drainage at this time. Continue current drains.
� NGT clamping trial. Possible clear liquids later.
� Continue pain control with Tylenol/[place].l
� Continue DVT PPx with Lovenox/SCD's and ambulation. PT
� Wound vac
- Antibiotics as per ID.
� Appreciate hospitalist/ID
Subjective Data
Subjective Data
Date of Service: May 06, 2024
Passing flatus and moving her bowels. She denies any abdominal pain and she is hungry.
Objective Data
-
Vital Signs
Temp Pulse Resp BP Pulse Ox
97.8 F 76 16 160/67 96
05/06/24 07:00 05/06/24 07:13 05/06/24 07:13 05/06/24 07:00 05/06/24 07:13
Intake & Output
05/05/24 05/06/24 05/07/24
06:59 06:59 06:59
Intake Total 3171 / 3171 4647 / 4647
Output Total 476 / 476 616 / 616
Balance 2695 / 2695 4031 / 4031
Intake:
IV fluids (Total) 1760 / 1760 1680 / 1680
IV piggybacks 611 / 611 679 / 679
TPN/PPN 650 / 650 1208 / 1208
Amount instilled into GI Tube ( 150 / 150 1080 / 1080
Total)
Wann Sump 150 / 150 1080 / 1080
Output:
Drain Output (Total)
Left Abdomen Eliot-Neal
Right Abdomen Eliot-Neal
Gastrointestinal tube output ( 430 / 430 590 / 590
Total)
Wann Sump 430 / 430 590 / 590
Other:
Number of approximated MODERATE 4
amounts of urine
Number of approximated LARGE 1 2
amounts of urine
Lab Results
05/06/24 08:46
05/06/24 04:30
Physical Exam
-
General: No Acute Distress
Abdomen: Soft, Non Distended and Non Tender
Extremities: No Calf Tenderness
Wound: Dressing Changed (clean base; fascia intact)
Data Reviewed
-
CT Scan: Image Reviewed and Report Reviewed
--- NOTE | 2024-05-06 11:32 | W.PN.ID1 ---
Date of Service
Date of Service: May 06, 2024
Today's Communication
- CT with two fluid collections will discuss with IR if drainage is an option
- c/w zosyn
- c/w micafungin for now
Assessment / Plan
Possible secondary peritonitis
Leukocytosis
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
S/p redo anastomosis 04/27 for necrotic anastomosis
Report of ADR (not allergy) with keflex, levofloxacin, bactrim - diarrhea; Bang also listed doxycycline - rash, and augmentin - unknown
DM2
- blood cultures x2 in progress no growth to date
- culture from the drain - colonization of the drain vs possible early peritonitis
- Pseudomonas and C albicans
- QTc prolonged - repeated today
- CT with two fluid collections will discuss with IR if drainage is an option
- will take need for high dose steroids into account when planning antibiotic course
- c/w zosyn
- c/w micafungin for now
- follow clinically
Chief Complaint
-: Other (peritonitis)
Subjective / Review of Systems
afebrile
bp stable
up walking with PT
in good spirits
Vital Signs / Physical Exam
Vital Signs
Vital Signs
Temp Pulse Resp BP Pulse Ox
97.8 F 76 16 160/67 96
05/06/24 07:00 05/06/24 07:13 05/06/24 07:13 05/06/24 07:00 05/06/24 07:13
Physical Exam
Constitutional: No Acute Distress and Chronically Ill
Cardiovascular: Regular Rate and S1/S2; Negative Murmur or Rub
Pulmonary: Clear and Symmetric; Negative Wheezes or Rales
Gastrointestinal: Soft, Non Tender, Non Distended and Normal Bowel Sounds
Skin: Warm and Dry; Negative Rash or Jaundice
Objective Data
Lab Data
Lab Results
05/06/24 08:46
05/06/24 04:30
Estimated Creat Clear 61 ml/min 05/06/24 04:30
Total Bilirubin 0.3 mg/dl (0.2-1.3) 05/05/24 05:48
AST 18 U/L (14-36) 05/05/24 05:48
ALT 14 U/L (0-35) 05/05/24 05:48
Alkaline Phosphatase 57 U/L (38-126) 05/05/24 05:48
Most recent labs reviewed.
Micro Results:
05/02/24 06:43 Blood Culture - Preliminary
Blood/Venous No Growth in 4 days- Final report to follow
05/03/24 12:22 Blood Culture - Preliminary
Blood/Venous No Growth in 48 hours- Final report to follow
05/02/24 09:53 Wound Culture - Preliminary
Eliot Neal Pseudomonas aeruginosa
Yeast
Gram Stain - Final
05/02/24 17:27 Urine Culture - Final
Urine NO GROWTH
05/02/24 06:57 MRSA Screen - Final
Nose No Methicillin Resistant Staphylococcus aureus isolated.
Care Review
Plan reviewed with: Physician (Dr Briggs - fluid collections)
--- NOTE | 2024-05-06 12:09 | WOUNDNOTE ---
[facility] RN NOTE: Patient visited to apply wound vac to midline open abdominal wound as ordered by colorectal surgery. Wound measured 9x5x3 with 4 cm tunnel at 12 clock. Base of wound covered with fatty tissue and sides are pink and clean. No odor noted.
Consulted with TONJA Patel and Mamta Trivedi prior to vac placement for application plan. Periwound skin prepped as noted in worklist and zack covered with gauze. 1 piece of white foam was placed in tunnel and 1 piece of white foam was
placed at base of wound. White foam at base of wound then covered with 1 piece of black foam. Wound vac applied as ordered. Confirmed with colorectal that next vac change can take place of Wednesday 05/09. Later confirmed with Brenda Patricia that
fascia intact. Plan is for patient to go home with vac. Will coordinate discharge plan with CM.
[2024-05-06] MEDS: NOVOLOG FLEXPEN-MODERATE RESISTANCE 1 UNITS SC ×3 (12:52→23:53)
[2024-05-06 12:54] LABS: Glucose - Point of Care 193 mg/dl (70-99)
--- NOTE | 2024-05-06 13:46 | CM ---
chart reviewed
PT had rec outpatient - 05/05 declined PT
wound vac placed on abdomen
options of home health agencies - [facility] preferred, notified liaison, referral placed in careport
NGT removed
PLAN: home, [facility]N
[2024-05-06] MEDS: FLUSH (NSS) 1 FLUSH IV (14:23)
--- NOTE | 2024-05-06 14:23 | VNURNOTE ---
Home Health Liaison met with patient and family at bedside to discuss [facility] nurse/therapy, visits, schedule and homebound status. Patient is agreeable and understands that visits at home will be 2-3 x per week to assess and teach medical management
and wound vac management.
[facility] brochure provided with contact information. Patient is aware that [facility] will contact them for start of care in 1-2 days after discharge from .
[facility] referral completed in [facility] Port.
[2024-05-06] MEDS: MYCAMINE 105 MG IV (16:32)
[2024-05-06 17:08] LABS: Glucose - Point of Care 161 mg/dl (70-99)
[2024-05-06] MEDS: LOVENOX 40 MG SC (18:20)
[2024-05-06 21:04] LABS: Glucose - Point of Care 178 mg/dl (70-99)
[2024-05-06] MEDS: Parenteral Nutrition, Central 1310 IV (21:13)
[2024-05-06] MEDS: NSS (PRESERVATIVE FREE) 8 ML IV (21:25)
[2024-05-06] MEDS: PEPCID 20 MG IV (21:25)
[2024-05-06 23:52] LABS: Glucose - Point of Care 162 mg/dl (70-99)
[2024-05-07] MEDS: ZOSYN 100 IV ×4 (01:25→20:19)
[2024-05-07] MEDS: NSS IV (02:30)
[2024-05-07 03:06] VITALS: BP 139/55
[2024-05-07] MEDS: NOVOLOG FLEXPEN-MODERATE RESISTANCE 1 UNITS SC ×3 (05:04→23:40)
[2024-05-07] MEDS: NOVOLOG FLEXPEN 5 UNITS SC ×4 (05:04→23:39)
[2024-05-07] MEDS: LOPRESSOR 2.5 MG IV ×4 (05:05→23:42)
[2024-05-07 05:11] LABS: Glucose - Point of Care 169 mg/dl (70-99)
[2024-05-07 05:19] LABS: % Basophils 0.1 % (0-2); % Eosinophils 0.4 % (0-6); % Immature Granulocytes 1.7 % (0-0.5); % Lymphocytes 6.2 % (20.5-51.1); % Monocytes 8.2 % (1.7-9.3); % Neutrophils 83.4 % (42.2-75.2); Absolute Eosinophils 0.1 10^3/uL (0-0.7); Absolute Immature Granulocytes 0.2 10^3/uL (0-0.05); Absolute Lymphocytes 0.9 10^3/uL (1.2-3.4); Absolute Monocytes 1.2 10^3/uL (0.1-0.6); Absolute Neutrophils 11.6 10^3/uL (1.4-6.5); Hematocrit 24.3 % (37.0-47.0); Hemoglobin 8.2 g/dL (12.0-16.0); Mean Corp Hgb Conc. 33.7 g/dL (33.0-37.0); Mean Corpuscular Hgb 28.5 pg (27.0-31.0); Mean Corpuscular Volume 84.4 fL (81.0-99.0); Mean Platelet Volume 8.8 fL (7.4-10.4); Nucleated Red Blood Cells % 0 %; Platelet Count 632 10^3/uL (130-400); Red Blood Cell Count 2.88 10^6/uL (4.20-5.40); Red Cell Dist. Width 17.6 % (11.5-14.5)
[2024-05-07 05:22] VITALS: BMI 27.9
[2024-05-07 05:33] LABS: ALT (SGPT) 16 U/L (0-35); AST (SGOT) 24 U/L (14-36); Albumin 2.3 g/dl (3.5-5.0); Alkaline Phosphatase 52 U/L (38-126); Blood Urea Nitrogen 19 mg/dl (7-17); Calcium 7.9 mg/dl (8.4-10.2); Carbon Dioxide 22 mmol/L (22-30); Chloride 105 mmol/L (98-107); Estimated Creatinine Clearance 69 ml/min; Glucose 150 mg/dl (70-99); Potassium 3.5 mmol/L (3.5-5.1); Sodium 136 mmol/L (135-145); Total Bilirubin 0.3 mg/dl (0.2-1.3); Total Protein 4.5 g/dl (6.3-8.2); eGFR > 60.00
[2024-05-07] MEDS: ADVAIR HFA 115/21 MCG INHALER 2 PUFF INH ×2 (07:00→20:01)
[2024-05-07 07:15] VITALS: BP 146/60
[2024-05-07] MEDS: CORDARONE 103 MG IV (07:55)
[2024-05-07] MEDS: NSS (PRESERVATIVE FREE) 10 ML IV ×2 (08:00→20:19)
[2024-05-07] MEDS: PROTONIX IV 40 MG IV ×2 (08:00→20:19)
[2024-05-07] MEDS: DESENEX/MITRAZOL/ZEASORB 1 APPLIC TOPICAL ×2 (08:01→20:18)
[2024-05-07] MEDS: NSS 1000 IV (08:01)
--- NOTE | 2024-05-07 08:03 | W.PN.CD ---
Today's Communication / Plan
-
Cont amio and metoprolol
Ambulate as able
Impression / Plan
-
Impression/Plan: 83 yo female with PMH of HTN, multiple medication intolerances, coronary artery calcification (on CT), dyslipidemia, prior lung cancer, and now new diagnosis of colon cancer s/p right hemicolectomy at [facility] on
04/22/2024 complicated by anastomotic leak requiring revision on 04/25/2024, subsequently developing atrial fibrillation with RVR with hypotension requiring cardioversion and amiodarone.
#Atrial Fibrillation with RVR
-Paroxysmal, post operative.
-Symptomatic with hypotension, requiring DC cardioversion.
-Rate/rhythm control with IV amiodarone 150 mg daily and metoprolol 2.5 mg TID.
-CHADS2-Vasc = 4 (HTN, Age x2, Female).
-Therapeutic anticoagulation on hold due to risks of post operative bleeding, potential need for subsequent procedures.
#Nausea
-Improving, asking if NG tube could come out
-TPN started.
#Cecal Adenocarcinoma
-S/P hemicolectomy 04/22/2024, and return to OR for anastomotic leak 04/25/2024.
-Abdominal wound dehiscence, infection suspected.
-CRISTINA drain with many Pseudomonas (burton sensitive) and yeast (not yet ID'ed).
-ID involved, pt on piperacillin tazobactam, micafungin added.
-CT A/P (05/01/2024) shows no drainable collections at that time, repeat CT A/P pending today.
#HTN
#Coronary artery calcification on CT
#Multiple medication intolerances
Subjective/Interval History:
Feeling improved overall, however, diarrhea start overnight
DATA:
TTE, 05/02/2024:
CONCLUSIONS
Hyperdynamic left ventricular systolic function. LV ejection fraction is 70-
75%.
Normal right ventricular size. Normal right ventricular systolic function.
No significant valve disease.
Compared to 03/02/23: no significant change. Asc Ao was not well seen on current
study, and measured 3.9 cm on prior study.
Physical Exam
Vital Signs/Labs
Vital Signs
Temp Pulse Resp BP Pulse Ox
98.0 F 61 16 146/60 97
05/07/24 07:15 05/07/24 07:15 05/07/24 07:15 05/07/24 07:15 05/07/24 07:15
05/06/24 05/07/24 05/08/24
06:59 06:59 06:59
Actual Weight 176 lb 9 oz 178 lb 1.6 oz
05/07/24 04:25
05/07/24 04:25
Magnesium 1.7 mg/dl (1.6-2.3) 05/05/24 05:48
Triglycerides 112 mg/dl (10-149) 05/05/24 05:48
Physical Exam
Constitutional: No acute distress and Comfortable
EENT: Anicteric
Cardiovascular: Rhythm & rate is regular and Pedal edema is absent
Respiratory: Respiratory effort normal and Lungs clear to auscul.
GI: Soft
Neuro/Psych: AO x 3
Data Reviewed
-
Date of Service: May 07, 2024
EKG: Tracing Personally Visualized and interpreted (sr)
Echo: Report Reviewed by me
Labs: Labs Reviewed by me
--- NOTE | 2024-05-07 08:17 | W.PN.HOSP.TC ---
Addendum entered and electronically signed by Meggan Patterson MD 05/08/24 07:41:
Stage 1 sacral pressure injury, POA
Original Note:
Today's Communication/Plan
-
cont abx antifungal as per ID
PT/OT
TPN clear liquid diet as per CRS
Glycemic control
rate rhythm control as per Cardio
Assessment / Plan
Assessment / Plan
Physical exam:
General: no acute distress, appears comfortable
HEENT: Normocephalic, Atraumatic and Moist Mucous Membranes
Respiratory: Clear to Auscultation; Negative Wheezes, Rales or Rhonchi
Cardiac: Regular Rhythm and S1/S2
GI: soft, nontender, bowel sounds present
Musculoskeletal: No Clubbing, No Cyanosis and No Edema
Neuro: Awake, Alert and Oriented
Psych: Calm
A/P:
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
Transfer from [place] on 05/01/2024
X-ray of the abdomen and clinical picture is consistent with ileus
Continue IV fluids
Continue TPN diet as per CRS, advanced to clear liquid
NG tube discontinued 05/06
Colorectal and general surgery surgery consult and follow-up appreciated
Continue local wound care
PT OT eval appreciated Home services
Persistent leukocytosis, likely related to infected wound, rule out secondary peritonitis:
Pseudomonas and yeast in wound culture
Cont IV Zosyn micafungin as per ID
ID consult appreciated
CT appreciated small loculated effusions perisplenic and perihepatic
Anemia:
Continue to monitor hemoglobin closely
Paroxysmal atrial fibrillation:
continue IV amiodarone 150 mg daily, eventual switch to PO when oral intake stable/reliable
IV Lopressor scheduled, 2.5 mg every 6 hours
Continue cardiac monitoring
Echo reviewed and EF 70 to 75% and no significant valve disease
Cardiology consult appreciated
Delirium resolved
Anemia:
H&H stable
Continue to monitor hemoglobin
Diabetes mellitus type 2:
On insulin sliding scale
Updated hemoglobin A1c 6.5
Hypothyroidism:
Hold levothyroxine for now but if prolonged n.p.o. status then will switch to IV.
Hyperlipidemia:
Hold pravastatin while n.p.o.
GERD:
On Protonix 40 mg IV twice a day and IV Pepcid daily
Anxiety:
Hold oral alprazolam and continue IV Ativan as needed
DVT prophylaxis:
Lovenox SQ
CODE STATUS:
Full code
I spent a total of 45 minutes with the patient or on the floor. More than 50% of this time involved counseling and coordination of care.
Anticipated Discharge: 24 - 48 hours
Subjective/Interval History
-
Date of Service: May 07, 2024
no acute distress sitting up comfortably in chair. Patient excited to start clear liquid diet.
Objective Data
-
Labs:
Laboratory Results
05/07/24
04:25
WBC 14.0 H
Hgb 8.2 L
Hct 24.3 L
Plt Count 632 H
Sodium 136
Potassium 3.5
Chloride 105
Carbon Dioxide 22
BUN 19 H
Creatinine 0.7
Glucose 150 H
Calcium 7.9 L
Total Bilirubin 0.3
AST 24
ALT 16
Alkaline Phosphatase 52
Vital Signs:
Vital Signs
Temp Pulse Resp BP Pulse Ox
98.0 F 61 16 146/60 97
05/07/24 07:15 05/07/24 07:15 05/07/24 07:15 05/07/24 07:15 05/07/24 07:15
I&O
11/12/24 11/13/24 11/14/24
06:59 06:59 06:59
Intake Total 4647 / 4647 3308 / 3308
Output Total 616 / 616 55 / 55
Balance 4031 / 4031 3253 / 3253
--- NOTE | 2024-05-07 08:47 | W.PN.CRS1 ---
Today's Communication / Plan
-
Clear liquids
TPN
C. difficile
Assessment/Plan
-
83-year-old female with PMH of HTN, HLD, COPD, CKD stage III, MS, lung cancer s/p partial lung resection, colon cancer (recent open RHC on 04/22/2024, complicated by A-fib with RVR and anastomotic leak requiring takeback and revision of anastomosis
on 04/27, transferred to [place] per family request on 05/02); now with open midline wound and to CRISTINA drains bilaterally
-developed N/V requiring NG tube, now with leukocytosis; CT scan 05/05/24 with a small amount of loculated perisplenic and perihepatic fluid.
AFVSS
WBC 14.0 from 14.3, hemoglobin 8.2 from 8.1
� Leukocytosis improving (possibly some steroid effect). Would hold off on aspiration/drainage at this time. Continue current drains.
� Advance diet to clear liquids. Continue TPN.
� Continue pain control with Tylenol/[place].l
� Continue DVT PPx with Lovenox/SCD's and ambulation. PT
� Wound vac
- Antibiotics as per ID.
� Appreciate hospitalist/ID
-Test for C. difficile given loose stools
Subjective Data
Subjective Data
Date of Service: May 07, 2024
Patient states she is had loose stools overnight. She is little hungry. She denies nausea or vomiting. She has discomfort from the wound VAC.
Objective Data
-
Vital Signs
Temp Pulse Resp BP Pulse Ox
98.0 F 61 16 146/60 97
05/07/24 07:15 05/07/24 07:15 05/07/24 07:15 05/07/24 07:15 05/07/24 07:15
Intake & Output
05/06/24 05/07/24 05/08/24
06:59 06:59 06:59
Intake Total 4647 / 4647 3308 / 3308
Output Total 616 / 616 55 / 55
Balance 4031 / 4031 3253 / 3253
Intake:
Oral fluids 240 / 240
IV fluids (Total) 1680 / 1680 1880 / 1880
IV piggybacks 679 / 679 528 / 528
TPN/PPN 1208 / 1208 660 / 660
Amount instilled into GI Tube ( 1080 / 1080
Total)
[place] Sump 1080 / 1080
Output:
Drain Output (Total) 26 / 26 55 / 55
Left Abdomen Eliot-Neal
Right Abdomen Eliot-Neal 35
Gastrointestinal tube output ( 590 / 590
Total)
[place] Sump 590 / 590
Other:
Number of approximated MODERATE 1
amounts of urine
Number of approximated LARGE 2 1
amounts of urine
Lab Results
05/07/24 04:25
05/07/24 04:25
Physical Exam
-
General: No Acute Distress and AOx3
Abdomen: Soft, Non Distended, Non Tender and Other (Left drain serous, right drain serous with purulent)
Skin: Warm and Dry
Wound: Other (Wound VAC in place)
[2024-05-07 09:19] LABS: Magnesium 1.5 mg/dl (1.6-2.3); Phosphorus 2.9 mg/dl (2.5-4.5)
[2024-05-07] MEDS: MAGNESIUM SULFATE 50 IV (10:02)
--- NOTE | 2024-05-07 10:49 | WOUNDNOTE ---
[facility] RN note: Faxed [facility] vac paperwork to Flavia serna this am who confirmed she received the fax.
--- NOTE | 2024-05-07 11:35 | CM ---
Patient seen at bedside.
started clear liquid diet
continues on TPN via PICC
abdomen wound vac
PLAN: Home, with [facility]
[2024-05-07 12:10] LABS: Glucose - Point of Care 218 mg/dl (70-99)
--- NOTE | 2024-05-07 12:30 | WOUNDNOTE ---
WOC RN Note: Flavia Garcia from [facility] stated patient's ready fpc vac was approved. Home vac equipment in wound care office and can be brought up on day of discharge if patient goes home with wound vac. If patient goes to SNF, Case
management will have to notify SNF that vac equipment is needed.
[2024-05-07 12:34] VITALS: BP 148/60
[2024-05-07] MEDS: NOVOLOG FLEXPEN-MODERATE RESISTANCE 3 UNITS SC (12:35)
[2024-05-07 15:27] VITALS: BP 146/76
[2024-05-07] MEDS: DIFLUCAN 400 MG PO (15:46)
--- NOTE | 2024-05-07 16:26 | W.PN.UPDATE ---
Update Note
Progress Note Update
chart reviewed: plans as below:
Possible secondary peritonitis
Leukocytosis
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
S/p redo anastomosis 04/27 for necrotic anastomosis
Report of ADR (not allergy) with keflex, levofloxacin, bactrim - diarrhea, doxycycline - rash, and augmentin - unknown (tolerating zosyn)
DM2
- blood cultures x2 in progress no growth to date
- culture from the drain - colonization of the drain vs possible early peritonitis
- Pseudomonas and C albicans
- CT with two fluid collections - discussed with Dr Briggs 05/06 - too small for drain placement
- will take need for high dose steroids into account when planning antibiotic course
- c/w zosyn 05/03-05/16
- switch to fluconazole 05/04-05/17
- follow QTc tomorrow, today 460
- QTc may not allow for oral rx directed at both the pseudomonas and the c albicans (particularly as she is requiring amiodarone) may require home IV antibiotics
- follow clinically
[2024-05-07 17:29] LABS: Glucose - Point of Care 170 mg/dl (70-99)
[2024-05-07] MEDS: LOVENOX 40 MG SC (17:33)
[2024-05-07] MEDS: Parenteral Nutrition, Central 1310 IV (21:52)
[2024-05-07] MEDS: PEPCID 20 MG IV (21:55)
[2024-05-07] MEDS: NSS (PRESERVATIVE FREE) 8 ML IV (21:56)
[2024-05-07 21:57] LABS: Glucose - Point of Care 155 mg/dl (70-99)
[2024-05-07 23:44] LABS: Glucose - Point of Care 174 mg/dl (70-99)
[2024-05-07 23:58] VITALS: BP 156/61
[2024-05-08] MEDS: NSS 1000 IV (01:00)
[2024-05-08] MEDS: ZOSYN 100 IV (01:00)
--- NOTE | 2024-05-08 02:50 | W.PN.UPDATE ---
Update Note
Progress Note Update
RN notified provider that patient is having bloody stools, VSS. AM labs to be drawn, patient made NPO, Lovenox and Ketorolac on hold at this time. Colorectal surgery to be advised in am by RN.
[2024-05-08 05:07] LABS: Glucose - Point of Care 185 mg/dl (70-99)
[2024-05-08] MEDS: NOVOLOG FLEXPEN 5 UNITS SC ×3 (05:08→17:34)
[2024-05-08] MEDS: NOVOLOG FLEXPEN-MODERATE RESISTANCE 1 UNITS SC ×3 (05:08→17:34)
[2024-05-08] MEDS: LOPRESSOR 2.5 MG IV ×3 (05:10→17:33)
[2024-05-08 05:22] LABS: Hematocrit 26.3 % (37.0-47.0); Hemoglobin 8.8 g/dL (12.0-16.0); Mean Corp Hgb Conc. 33.5 g/dL (33.0-37.0); Mean Corpuscular Hgb 28.7 pg (27.0-31.0); Mean Corpuscular Volume 85.7 fL (81.0-99.0); Mean Platelet Volume 8.8 fL (7.4-10.4); Platelet Count 650 10^3/uL (130-400); Red Blood Cell Count 3.07 10^6/uL (4.20-5.40); Red Cell Dist. Width 17.2 % (11.5-14.5); White Blood Cell Count 14.2 10^3/uL (4.8-10.8)
[2024-05-08] MEDS: NOVOLOG FLEXPEN-MODERATE RESISTANCE SC ×4 (05:32→05:33)
[2024-05-08 05:33] LABS: Blood Urea Nitrogen 15 mg/dl (7-17); Calcium 8.1 mg/dl (8.4-10.2); Carbon Dioxide 21 mmol/L (22-30); Chloride 105 mmol/L (98-107); Estimated Creatinine Clearance 69 ml/min; Glucose 149 mg/dl (70-99); Magnesium 1.8 mg/dl (1.6-2.3); Phosphorus 3.1 mg/dl (2.5-4.5); Potassium 3.5 mmol/L (3.5-5.1); Sodium 139 mmol/L (135-145); eGFR > 60.00
--- NOTE | 2024-05-08 07:37 | W.PN.HOSP.TC ---
Today's Communication/Plan
-
resume home synthroid
abx antifungal as per ID
wound care, diet, TPN as per CRS
PT/OT
Assessment / Plan
Assessment / Plan
Physical exam:
General: no acute distress, appears comfortable
HEENT: Normocephalic, Atraumatic and Moist Mucous Membranes
Respiratory: Clear to Auscultation; Negative Wheezes, Rales or Rhonchi
Cardiac: Regular Rhythm and S1/S2
GI: soft, nontender, bowel sounds present, wound vac in place
Musculoskeletal: No Clubbing, No Cyanosis and No Edema
Neuro: Awake, Alert and Oriented
Psych: Calm
A/P:
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
Transfer from [place] on 05/01/2024
X-ray of the abdomen and clinical picture is consistent with ileus
Continue IV fluids
Continue TPN diet as per CRS, diet gradually advanced to Low residue
NG tube discontinued 05/06
Colorectal and general surgery surgery consult and follow-up appreciated
Continue local wound care
PT OT eval appreciated Home services
Persistent leukocytosis, likely related to infected wound, rule out secondary peritonitis:
Pseudomonas and yeast in wound culture
IV Zosyn & micafungin switched to ciprofloxacin and metronidazole 05/03-05/16 and fluconazole 05/04-05/17 as per ID
ID consult appreciated
CT appreciated small loculated effusions perisplenic and perihepatic too small for drainage per ID discussion with IR
Paroxysmal atrial fibrillation:
continue IV amiodarone 150 mg daily, eventual switch to PO when oral intake stable/reliable
IV Lopressor scheduled, 2.5 mg every 6 hours
Continue cardiac monitoring
Echo reviewed and EF 70 to 75% and no significant valve disease
Cardiology consult appreciated
Delirium resolved
Anemia:
Bloody Bowel Movement noted overnight 05/08
H&H stable
Continue to monitor hemoglobin
dvt ppx switched to mechanical
Diabetes mellitus type 2:
On insulin sliding scale
Updated hemoglobin A1c 6.5
Hypothyroidism:
Home synthroid resumed
Hyperlipidemia:
Hold pravastatin while n.p.o.
GERD:
On Protonix 40 mg IV twice a day and IV Pepcid daily
Anxiety:
Hold oral alprazolam and continue IV Ativan as needed
Stage 1 sacral pressure injury, POA
cont local wound care
DVT prophylaxis:
Lovenox SQ discontinued d/t bloody bowel movements
SCDs
CODE STATUS:
Full code
I spent a total of 45 minutes with the patient or on the floor. More than 50% of this time involved counseling and coordination of care.
Anticipated Discharge: 24 - 48 hours
Subjective/Interval History
-
Date of Service: May 08, 2024
No acute distress sitting up comfortably in chair. Noted bloody bowel movements overnight but H&H stable. Tolerating diet.
Objective Data
-
Labs:
Laboratory Results
05/08/24
04:37
WBC 14.2 H
Hgb 8.8 L
Hct 26.3 L
Plt Count 650 H
Sodium 139
Potassium 3.5
Chloride 105
Carbon Dioxide 21 L
BUN 15
Creatinine 0.7
Glucose 149 H
Calcium 8.1 L
Vital Signs:
Vital Signs
Temp Pulse Resp BP Pulse Ox
98.8 F 63 20 145/57 95
05/07/24 23:58 05/08/24 05:10 05/07/24 23:58 05/08/24 05:10 05/07/24 23:58
I&O
05/07/24 05/08/24 05/09/24
06:59 06:59 06:59
Intake Total 3308 / 3308 600 / 600
Output Total 55 / 55 370 / 370
Balance 3253 / 3253 230 / 230
[2024-05-08] MEDS: ADVAIR HFA 115/21 MCG INHALER 2 PUFF INH ×2 (07:38→19:33)
[2024-05-08 08:14] VITALS: BP 163/68
[2024-05-08 08:20] LABS: Glucose - Point of Care 142 mg/dl (70-99)
[2024-05-08 08:31] LABS: % Basophils 0.3 % (0-2); % Eosinophils 0.7 % (0-6); % Immature Granulocytes 1.6 % (0-0.5); % Lymphocytes 6.9 % (20.5-51.1); % Monocytes 7.4 % (1.7-9.3); % Neutrophils 83.1 % (42.2-75.2); Absolute Eosinophils 0.1 10^3/uL (0-0.7); Absolute Immature Granulocytes 0.2 10^3/uL (0-0.05); Absolute Neutrophils 11.7 10^3/uL (1.4-6.5); Nucleated Red Blood Cells % 0 %
--- NOTE | 2024-05-08 08:37 | W.PN.CRS1 ---
Today's Communication / Plan
-
As below
Assessment/Plan
-
83-year-old female with PMH of HTN, HLD, COPD, CKD stage III, MS, lung cancer s/p partial lung resection, colon cancer (recent open RHC on 04/22/2024, complicated by A-fib with RVR and anastomotic leak requiring takeback and revision of anastomosis
on 04/27, transferred to [facility] per family request on 05/02); now with open midline wound and to CRISTINA drains bilaterally
-05/03 developed N/V requiring NG tube
-05/05 CT scan showing small perisplenic and perihepatic collections, no other acute findings
AFVSS
WBC 14.2 from 14.0, Hb 8.8 from 8.2, CR 0.7
�Bloody stool overnight; hemoglobin stable;
�Will hold DVT PPx and repeat CBC at 1 PM
� Persistent leukocytosis with elevated neutrophils; currently asymptomatic
�Would continue to trend WBC/fever curve and monitor for new symptoms; may repeat CT in 1-2 days to re-assess collections
-cdiff negative
� Advance to low residue, cont TPN
�Continue vac therapy
� Continue pain control with Tylenol/Toradol
� Encourage OOB/IS; appreciate PT
� Appreciate hospitalist
Subjective Data
Subjective Data
Date of Service: May 08, 2024
No overnight events.
Pain controlled.
Denies nausea/vomiting. Tolerating diet.
+flatus +BMs (still having liquid stools, noted blood in stool overnight) +voiding
Objective Data
-
Vital Signs
Temp Pulse Resp BP Pulse Ox
98.8 F 65 16 145/57 99
05/07/24 23:58 05/08/24 07:43 05/08/24 07:43 05/08/24 05:10 05/08/24 07:43
Intake & Output
11/05/08/24 05/09/24
06:59 06:59 06:59
Intake Total 3308 / 3308 600 / 600
Output Total 370 / 370
Balance 3253 / 3253 230 / 230
Intake:
Oral fluids 240 / 240 600 / 600
IV fluids (Total) 1880 / 1880
IV piggybacks 528 / 528
TPN/PPN 660 / 660
Output:
Drain Output (Total) 70 / 70
Left Abdomen Eliot-Neal 20 / 20 40 / 40
Right Abdomen Eliot-Neal 35 / 35 30 / 30
Urine, Voided 300 / 300
Other:
Number of approximated MODERATE 1 2
amounts of urine
Number of approximated LARGE 1 1
amounts of urine
Lab Results
05/08/24 04:37
Physical Exam
-
General: No Acute Distress and AOx3
Abdomen: Soft, Non Distended, Tender (Appropriately tender near wound VAC and drains), No Guarding, No Rebound and Other (+ Wound VAC, functioning; right CRISTINA-30 mL purulent, left CRISTINA-40 mL serous)
Skin: Warm and Dry
--- NOTE | 2024-05-08 09:01 | W.PN.CD ---
Addendum entered and electronically signed by Dudley Cho MD 05/09/24 08:40:
We will sign off pls call with questions/concerns.
Will set up 4-6 week appt
Original Note:
Today's Communication / Plan
-
Cont amio and metop
Ambulate as able
Anticoagulation with Eliquis when OK from surgical perspective
Impression / Plan
-
Impression/Plan: 83 yo female with PMH of HTN, multiple medication intolerances, coronary artery calcification (on CT), dyslipidemia, prior lung cancer, and now new diagnosis of colon cancer s/p right hemicolectomy at [facility] on
04/22/2024 complicated by anastomotic leak requiring revision on 04/25/2024, subsequently developing atrial fibrillation with RVR with hypotension requiring cardioversion and amiodarone.
#Atrial Fibrillation with RVR
-Paroxysmal, post operative.
-Symptomatic with hypotension, requiring DC cardioversion.
-Rate/rhythm control with IV amiodarone 150 mg daily and metoprolol 2.5 mg TID.
-CHADS2-Vasc = 4 (HTN, Age x2, Female).
-Therapeutic anticoagulation on hold due to risks of post operative bleeding, potential need for subsequent procedures.
#Nausea
-Improved now on low residue diet
-TPN started.
#Cecal Adenocarcinoma
-S/P hemicolectomy 04/22/2024, and return to OR for anastomotic leak 04/25/2024.
-Abdominal wound dehiscence, infection suspected.
-CRISTINA drain with many Pseudomonas (burton sensitive) and yeast (not yet ID'ed).
-ID involved, pt on piperacillin tazobactam, micafungin added.
-CT A/P (05/01/2024) shows no drainable collections at that time, repeat CT A/P pending today.
#HTN
#Coronary artery calcification on CT
#Multiple medication intolerances
Subjective/Interval History:
Feeling better, blood in stool overnight?, HR stable
DATA:
TTE, 05/02/2024:
CONCLUSIONS
Hyperdynamic left ventricular systolic function. LV ejection fraction is 70-
75%.
Normal right ventricular size. Normal right ventricular systolic function.
No significant valve disease.
Compared to 03/02/23: no significant change. Asc Ao was not well seen on current
study, and measured 3.9 cm on prior study.
Physical Exam
Vital Signs/Labs
Vital Signs
Temp Pulse Resp BP Pulse Ox
98.8 F 65 16 145/57 99
05/07/24 23:58 05/08/24 07:43 05/08/24 07:43 05/08/24 05:10 05/08/24 07:43
05/07/24 05/08/24 05/09/24
06:59 06:59 06:59
Actual Weight 178 lb 1.6 oz
05/08/24 04:37
Magnesium 1.8 mg/dl (1.6-2.3) 05/08/24 04:37
Triglycerides 112 mg/dl (10-149) 05/05/24 05:48
Physical Exam
Constitutional: No acute distress and Comfortable
EENT: Anicteric
Cardiovascular: Rhythm & rate is regular and Pedal edema is absent
Respiratory: Respiratory effort normal and Lungs clear to auscul.
GI: Soft
Neuro/Psych: AO x 3
Data Reviewed
-
Date of Service: May 08, 2024
EKG: Tracing Personally Visualized and interpreted (sr)
Echo: Report Reviewed by me
Labs: Labs Reviewed by me
[2024-05-08] MEDS: DESENEX/MITRAZOL/ZEASORB 1 APPLIC TOPICAL ×2 (09:06→20:43)
[2024-05-08] MEDS: NSS (PRESERVATIVE FREE) 10 ML IV ×2 (09:07→20:36)
[2024-05-08] MEDS: PROTONIX IV 40 MG IV ×2 (09:07→20:36)
[2024-05-08] MEDS: DIFLUCAN 400 MG PO (09:09)
[2024-05-08] MEDS: FLUSH (NSS) 3 FLUSH IV (09:10)
[2024-05-08] MEDS: CORDARONE 103 MG IV (09:36)
[2024-05-08] MEDS: SYNTHROID 50 MCG PO (09:38)
--- NOTE | 2024-05-08 10:19 | W.PN.ID1 ---
Date of Service
Date of Service: May 08, 2024
Today's Communication
- stop zosyn, start ciprofloxacin and metronidazole 05/03-05/16
- switch to fluconazole 05/04-05/17
- follow QTc tomorrow, today 430
Assessment / Plan
Possible secondary peritonitis
Two small, nondrainable intraabdominal fluid collections - possibly abscesses
Leukocytosis
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
S/p redo anastomosis 04/27 for necrotic anastomosis
Report of ADR (not allergy) with keflex, levofloxacin, bactrim - diarrhea, doxycycline - rash, and augmentin - unknown (tolerating zosyn)
DM2
- blood cultures x2 in progress no growth to date
- culture from the drain - colonization of the drain vs possible early peritonitis
- Pseudomonas and C albicans
- CT with two fluid collections - discussed with Dr Briggs 05/06 - too small for drain placement
- stop zosyn, start ciprofloxacin and metronidazole 05/03-05/16
- switch to fluconazole 05/04-05/17
- follow QTc tomorrow, today 430
- follow clinically
Chief Complaint
-: Other (peritonitis)
Subjective / Review of Systems
afebrile
bp stable
tolerating current therapies
no new complaints
Vital Signs / Physical Exam
Vital Signs
Vital Signs
Temp Pulse Resp BP Pulse Ox
97.9 F 67 14 163/68 96
05/08/24 08:14 05/08/24 08:14 05/08/24 08:14 05/08/24 08:14 05/08/24 08:14
Physical Exam
Constitutional: No Acute Distress
Cardiovascular: Regular Rate and S1/S2; Negative Murmur or Rub
Pulmonary: Clear and Symmetric; Negative Wheezes or Rales
Gastrointestinal: Soft, Non Tender, Non Distended and Normal Bowel Sounds
Skin: Warm and Dry; Negative Rash or Jaundice
Objective Data
Lab Data
Lab Results
05/08/24 04:37
Estimated Creat Clear 69 ml/min 05/08/24 04:37
Total Bilirubin 0.3 mg/dl (0.2-1.3) 05/07/24 04:25
AST 24 U/L (14-36) 05/07/24 04:25
ALT 16 U/L (0-35) 05/07/24 04:25
Alkaline Phosphatase 52 U/L (38-126) 05/07/24 04:25
Most recent labs reviewed.
Micro Results:
05/03/24 12:22 Blood Culture - Preliminary
Blood/Venous No Growth in 4 days- Final report to follow
05/07/24 11:04 C. difficile GDH Antigen & Toxins - Final
Feces/Stool Negative for toxigenic C.difficile
05/02/24 06:43 Blood Culture - Final
Blood/Venous No Growth - Final Report
05/02/24 09:53 Wound Culture - Final
Eliot Neal Pseudomonas aeruginosa
Vianey albicans
Gram Stain - Final
05/02/24 17:27 Urine Culture - Final
Urine NO GROWTH
05/02/24 06:57 MRSA Screen - Final
Nose No Methicillin Resistant Staphylococcus aureus isolated.
[2024-05-08 11:27] VITALS: BP 157/70
--- NOTE | 2024-05-08 11:56 | CM ---
Patient with abdominal wound vac
[facility] accepted patient
Watch for IV abx.
EKG tomorrow
PLAN: home, [facility] - watch for IV abx
[2024-05-08 12:04] LABS: Glucose - Point of Care 179 mg/dl (70-99)
[2024-05-08 12:30] LABS: Hematocrit 25.4 % (37.0-47.0); Hemoglobin 8.8 g/dL (12.0-16.0)
[2024-05-08] MEDS: ZOSYN IV (12:47)
[2024-05-08] MEDS: CIPRO 500 MG PO ×2 (12:48→20:36)
[2024-05-08] MEDS: FLAGYL 500 MG PO ×2 (12:48→20:36)
[2024-05-08 14:17] VITALS: BP 165/76; PULSE 60; O2SAT 100
[2024-05-08 16:11] VITALS: BP 167/69
[2024-05-08 16:37] LABS: Glucose - Point of Care 161 mg/dl (70-99)
[2024-05-08 19:36] VITALS: BP 158/58
[2024-05-08] MEDS: Parenteral Nutrition, Central 1310 IV (21:24)
[2024-05-08 21:38] LABS: Glucose - Point of Care 155 mg/dl (70-99)
[2024-05-08] MEDS: PEPCID 20 MG IV (21:47)
[2024-05-08] MEDS: NSS (PRESERVATIVE FREE) 8 ML IV (21:47)
[2024-05-08 23:09] VITALS: BP 162/89
[2024-05-08 23:58] LABS: Glucose - Point of Care 177 mg/dl (70-99)
[2024-05-09] MEDS: NOVOLOG FLEXPEN 5 UNITS SC ×2 (00:03→05:54)
[2024-05-09] MEDS: LOPRESSOR 2.5 MG IV ×2 (00:03→05:47)
[2024-05-09] MEDS: NOVOLOG FLEXPEN-MODERATE RESISTANCE 1 UNITS SC ×4 (00:04→17:25)
[2024-05-09 03:09] VITALS: BP 161/65
[2024-05-09 04:34] LABS: Hematocrit 23.9 % (37.0-47.0); Hemoglobin 8.1 g/dL (12.0-16.0); Mean Corp Hgb Conc. 33.9 g/dL (33.0-37.0); Mean Corpuscular Hgb 28.1 pg (27.0-31.0); Mean Platelet Volume 8.6 fL (7.4-10.4); Platelet Count 556 10^3/uL (130-400); Red Blood Cell Count 2.88 10^6/uL (4.20-5.40); Red Cell Dist. Width 17.1 % (11.5-14.5)
[2024-05-09 04:55] LABS: Blood Urea Nitrogen 16 mg/dl (7-17); Calcium 8.3 mg/dl (8.4-10.2); Carbon Dioxide 24 mmol/L (22-30); Chloride 103 mmol/L (98-107); Estimated Creatinine Clearance 69 ml/min; Glucose 148 mg/dl (70-99); Magnesium 1.8 mg/dl (1.6-2.3); Potassium 3.3 mmol/L (3.5-5.1); Sodium 136 mmol/L (135-145); eGFR > 60.00
[2024-05-09 05:34] VITALS: BMI 27.7
[2024-05-09] MEDS: SYNTHROID PO (05:47)
[2024-05-09 05:53] LABS: Glucose - Point of Care 159 mg/dl (70-99)
--- NOTE | 2024-05-09 06:14 | W.PN.UPDATE ---
Update Note
Progress Note Update
K 3.3, asymptomatic, will replete with KCL 40meq PO now.
[2024-05-09 07:35] VITALS: BP 137/59
[2024-05-09 07:44] LABS: Glucose - Point of Care 154 mg/dl (70-99)
[2024-05-09] MEDS: ADVAIR HFA 115/21 MCG INHALER 2 PUFF INH ×2 (08:00→18:32)
--- NOTE | 2024-05-09 08:33 | W.PN.HOSP.TC ---
Today's Communication/Plan
-
Med reconciliation
wound care diet as per CRS
abx antifungal as per ID
PT/OT
Amio BB converted to oral as per Cardio
Assessment / Plan
Assessment / Plan
Physical exam:
General: no acute distress, appears comfortable
HEENT: Normocephalic, Atraumatic and Moist Mucous Membranes
Respiratory: Clear to Auscultation; Negative Wheezes, Rales or Rhonchi
Cardiac: Regular Rhythm and S1/S2
GI: soft, nontender, bowel sounds present, wound vac in place
Musculoskeletal: No Clubbing, No Cyanosis and No Edema
Neuro: Awake, Alert and Oriented
Psych: Calm
A/P:
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
Transfer from [facility] on 05/01/2024
X-ray of the abdomen and clinical picture is consistent with ileus
Continue IV fluids
TPN completed, diet gradually advanced to Low residue as per CRS, tolerating
NG tube discontinued 05/06
Colorectal and general surgery surgery consult and follow-up appreciated
Continue local wound care
PT OT eval appreciated Home services
Persistent leukocytosis, likely related to infected wound, rule out secondary peritonitis:
Pseudomonas and yeast in wound culture
IV Zosyn & micafungin switched to ciprofloxacin and metronidazole 05/03-05/16 and fluconazole 05/04-05/17 as per ID
ID consult appreciated
CT appreciated small loculated effusions perisplenic and perihepatic too small for drainage per ID discussion with IR
Paroxysmal atrial fibrillation:
Continue cardiac monitoring
Echo reviewed and EF 70 to 75% and no significant valve disease
Cardiology consult appreciated IV amio lopressor converted to oral amio and metoprolol XL, recommend Eliquis when cleared as per CRS
Delirium resolved
Anemia:
Bloody Bowel Movement noted overnight 05/08
H&H stable
Continue to monitor hemoglobin
dvt ppx switched to mechanical
Diabetes mellitus type 2:
On insulin sliding scale
Updated hemoglobin A1c 6.5
Hypothyroidism:
Home synthroid resumed
Hyperlipidemia:
Hold pravastatin while n.p.o.
GERD:
On Protonix 40 mg IV twice a day and IV Pepcid daily, switched to PO Protonix 40 mg BID
Anxiety:
prn oral alprazolam, discontinued IV Ativan as needed (has not required)
Stage 1 sacral pressure injury, POA
cont local wound care
DVT prophylaxis:
Lovenox SQ resumed as per CRS
SCDs
CODE STATUS:
Full code
I spent a total of 45 minutes with the patient or on the floor. More than 50% of this time involved counseling and coordination of care.
Anticipated Discharge: 24 - 48 hours
Subjective/Interval History
-
Date of Service: May 09, 2024
Seen and examined at bedside in no acute distress, resting comfortably in bed. Overall reports feeling well. Tolerating diet
Objective Data
-
Labs:
Laboratory Results
05/09/24
04:15
WBC 14.0 H
Hgb 8.1 L
Hct 23.9 L
Plt Count 556 H
Sodium 136
Potassium 3.3 L
Chloride 103
Carbon Dioxide 24
BUN 16
Creatinine 0.7
Glucose 148 H
Calcium 8.3 L
Vital Signs:
Vital Signs
Temp Pulse Resp BP Pulse Ox
97.7 F 82 16 137/59 99
05/09/24 07:35 05/09/24 08:04 05/09/24 08:04 05/09/24 07:35 05/09/24 08:04
I&O
05/08/24 05/09/24 05/10/24
06:59 06:59 06:59
Intake Total 600 / 600 2923 / 2923
Output Total 370 / 370 70 / 70
Balance 230 / 230 2853 / 2853
--- NOTE | 2024-05-09 08:36 | W.PN.CD ---
Addendum entered and electronically signed by Dudley Cho MD 05/09/24 15:03:
We will sign off pls call with questions/concerns.
Will set up 4-6 week appt
Original Note:
Today's Communication / Plan
-
-switched to PO amio 200 mg daily and metop 25 XL daily
- amio likely to be stopped in 4-6 weeks
-CHADS2-Vasc = 4 (HTN, Age x2, Female).
-Anticoagulation with Eliquis once ok from surgical perspective
Impression / Plan
-
Impression/Plan: 83 yo female with PMH of HTN, multiple medication intolerances, coronary artery calcification (on CT), dyslipidemia, prior lung cancer, and now new diagnosis of colon cancer s/p right hemicolectomy at [facility] on
04/22/2024 complicated by anastomotic leak requiring revision on 04/25/2024, subsequently developing atrial fibrillation with RVR with hypotension requiring cardioversion and amiodarone.
#Atrial Fibrillation with RVR
-Paroxysmal, post operative.
-Symptomatic with hypotension, requiring DC cardioversion.
-Cont amio 200 mg daily and metop 25 XL daily
- amio likely to be stopped in 4-6 weeks
-CHADS2-Vasc = 4 (HTN, Age x2, Female).
-Anticoagulation with Eliquis once ok from surgical perspective
#Nausea
-Improved now on low residue diet
-TPN started.
#Cecal Adenocarcinoma
-S/P hemicolectomy 04/22/2024, and return to OR for anastomotic leak 04/25/2024.
-Abdominal wound dehiscence, infection suspected.
-CRISTINA drain with many Pseudomonas (burton sensitive) and yeast (not yet ID'ed).
-ID involved, pt on piperacillin tazobactam, micafungin added.
-CT A/P (05/01/2024) shows no drainable collections at that time, repeat CT A/P pending today.
#HTN
#Coronary artery calcification on CT
#Multiple medication intolerances
Subjective/Interval History:
tolerating food no new complaints
DATA:
TTE, 05/02/2024:
CONCLUSIONS
Hyperdynamic left ventricular systolic function. LV ejection fraction is 70-
75%.
Normal right ventricular size. Normal right ventricular systolic function.
No significant valve disease.
Compared to 03/02/23: no significant change. Asc Ao was not well seen on current
study, and measured 3.9 cm on prior study.
Physical Exam
Vital Signs/Labs
Vital Signs
Temp Pulse Resp BP Pulse Ox
97.7 F 82 16 137/59 99
05/09/24 07:35 05/09/24 08:04 05/09/24 08:04 05/09/24 07:35 05/09/24 08:04
05/08/24 05/09/24 05/10/24
06:59 06:59 06:59
Actual Weight 176 lb 7 oz
05/09/24 04:15
05/09/24 04:15
Magnesium 1.8 mg/dl (1.6-2.3) 05/09/24 04:15
Triglycerides 112 mg/dl (10-149) 05/05/24 05:48
Physical Exam
Constitutional: No acute distress and Comfortable
EENT: Anicteric
Cardiovascular: Rhythm & rate is regular and Pedal edema is absent
Respiratory: Respiratory effort normal and Lungs clear to auscul.
GI: Soft
Neuro/Psych: AO x 3
Data Reviewed
-
Date of Service: May 09, 2024
EKG: Tracing Personally Visualized and interpreted (sr)
Echo: Report Reviewed by me
Labs: Labs Reviewed by me
--- NOTE | 2024-05-09 08:45 | W.PN.CRS1 ---
Today's Communication / Plan
-
stop tpn
d/c picc
restart lovenox
Assessment/Plan
-
83-year-old female with PMH of HTN, HLD, COPD, CKD stage III, MS, lung cancer s/p partial lung resection, colon cancer (recent open RHC on 04/22/2024, complicated by A-fib with RVR and anastomotic leak requiring takeback and revision of anastomosis
on 04/27, transferred to [place] per family request on 05/02); now with open midline wound and to CRISTINA drains bilaterally
-05/03 developed N/V requiring NG tube
-05/05 CT scan showing small perisplenic and perihepatic collections, no other acute findings
AFVSS
WBC 14.0 from 14.2, Hb 8.1 from 8.2, CR 0.7
�Bloody stool overnight; hemoglobin stable;
�resume Lovenox
� Persistent leukocytosis with elevated neutrophils; currently asymptomatic
�D/C PICC
� Continue low residue diet, allow TPN bag to run out, will not resume
�Continue vac therapy
� Continue pain control with Tylenol/Toradol
� Encourage OOB/IS; appreciate PT
� Appreciate hospitalist
- Hold Elilesleeis one more day - will re-eval tomorrow
Subjective Data
Subjective Data
Date of Service: May 09, 2024
Patient states she feels well. She tolerated a diet. She is passing flatus. She has no blood in her stool. Overall she feels well.
Objective Data
-
Vital Signs
Temp Pulse Resp BP Pulse Ox
97.7 F 82 16 137/59 99
05/09/24 07:35 05/09/24 08:04 05/09/24 08:04 05/09/24 07:35 05/09/24 08:04
Intake & Output
05/08/24 05/09/24 05/10/24
06:59 06:59 06:59
Intake Total 600 / 600 2923 / 2923
Output Total 370 / 370
Balance 230 / 230 2853 / 2853
Intake:
Oral fluids 600 / 600 1620 / 1620
IV fluids (Total) 600 / 600
IV piggybacks 103 / 103
TPN/PPN 600 / 600
Output:
Drain Output (Total)
Left Abdomen Eliot-Neal 40 / 40 30 / 30
Right Abdomen Eliot-Neal 30 / 30 40 / 40
Urine, Voided 300 / 300
Other:
Number of approximated MODERATE 2 3
amounts of urine
Number of approximated LARGE 1
amounts of urine
Lab Results
05/09/24 04:15
05/09/24 04:15
Physical Exam
-
General: No Acute Distress and AOx3
Abdomen: Soft, Non Distended, Non Tender and Other (wound vac in place, R drain serous/purulent mixed, L drain serous)
Skin: Warm and Dry
[2024-05-09] MEDS: SYNTHROID 50 MCG PO (08:57)
[2024-05-09] MEDS: TOPROL XL 25 MG PO (08:57)
[2024-05-09] MEDS: DIFLUCAN 400 MG PO (08:57)
[2024-05-09] MEDS: CIPRO 500 MG PO ×2 (08:57→20:47)
[2024-05-09] MEDS: FLAGYL 500 MG PO (08:58)
[2024-05-09] MEDS: PACERONE 200 MG PO (08:58)
[2024-05-09] MEDS: PROTONIX IV 40 MG IV (08:58)
[2024-05-09] MEDS: NSS (PRESERVATIVE FREE) 10 ML IV (08:58)
[2024-05-09] MEDS: KCL 40 MEQ PO (08:58)
[2024-05-09] MEDS: DESENEX/MITRAZOL/ZEASORB 1 APPLIC TOPICAL (09:01)
[2024-05-09] MEDS: CORDARONE IV (09:05)
[2024-05-09 09:24] LABS: % Basophils 0.3 % (0-2); % Eosinophils 1.1 % (0-6); % Immature Granulocytes 1.6 % (0-0.5); % Lymphocytes 6.4 % (20.5-51.1); % Monocytes 6.9 % (1.7-9.3); % Neutrophils 83.7 % (42.2-75.2); Absolute Eosinophils 0.2 10^3/uL (0-0.7); Absolute Immature Granulocytes 0.2 10^3/uL (0-0.05); Absolute Lymphocytes 0.9 10^3/uL (1.2-3.4); Absolute Monocytes 0.9 10^3/uL (0.1-0.6); Absolute Neutrophils 11.3 10^3/uL (1.4-6.5); Nucleated Red Blood Cells % 0 %
[2024-05-09 11:00] VITALS: BP 132/56
--- NOTE | 2024-05-09 11:15 | CM ---
Addendum entered by Deirdre Kraft 05/09/24 11:31:
Case management consult completed. Eliquis, Pradaxa & Xeralto pricing
Called insurance [phone] & spoke with Danilo Villalba
tt Dr. Cho for dosages
Eliquis 5mg BID - $142.60/month
Pradaxa 150mg BID - not covered, but generic Dabigatran cost is $39.60/month
Xeralto 20mg daily - $136.70/month
tt to Dr. Cho of all pricing
IMM explained & signed. In chart
Original Note:
Patient seen at bedside.
Cont low residue, stop TPN, d/c PICC per progress note today
wound vac in place
[facility] accepted patient-referral in [facility]
PLAN: home, [facility] when medically stable
--- NOTE | 2024-05-09 11:20 | W.PN.ID1 ---
Date of Service
Date of Service: May 09, 2024
Today's Communication
Follow QTc in am.
Change po metronidazole to IV for now.
Assessment / Plan
Possible secondary peritonitis
Two small, nondrainable intraabdominal fluid collections - possibly abscesses
Leukocytosis
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
S/p redo anastomosis 04/27 for necrotic anastomosis
Report of ADR (not allergy) with keflex, levofloxacin, bactrim - diarrhea, doxycycline - rash, and augmentin - unknown (tolerating zosyn)
DM2
- blood cultures x2 in progress no growth to date
- culture from the drain - colonization of the drain vs possible early peritonitis
- Pseudomonas and C albicans
- CT with two fluid collections - discussed with Dr Briggs 05/06 - too small for drain placement
Repeat CT in 1 to 2 days as per colorectal.
- Continue ciprofloxacin and metronidazole 05/03-05/16
- Pt may have side effects from the metronidazole. Change from po to IV metronidazole and see if symptoms improve.
- continue fluconazole 05/04-05/17
- follow QTc increased to 499. Repeat EKG in am.
- follow clinically
Chief Complaint
-: Other (peritonitis)
Subjective / Review of Systems
c/o NO energy today.
c/o abx -terrible taste.
Vital Signs / Physical Exam
Vital Signs
Vital Signs
Temp Pulse Resp BP Pulse Ox
97.7 F 82 16 137/59 99
05/09/24 07:35 05/09/24 08:04 05/09/24 08:04 05/09/24 07:35 05/09/24 08:04
Physical Exam
Constitutional: Comfortable
Cardiovascular: Regular Rate and S1/S2
Pulmonary: Clear
Gastrointestinal: Soft, Non Tender, Normal Bowel Sounds and Other (CRISTINA drain- cloudy fluid)
Extremities: Negative Edema
Neurological: AO x 3
Lines: PICC (LUE)
Objective Data
Lab Data
Lab Results
05/09/24 04:15
05/09/24 04:15
Estimated Creat Clear 69 ml/min 05/09/24 04:15
Total Bilirubin 0.3 mg/dl (0.2-1.3) 05/07/24 04:25
AST 24 U/L (14-36) 05/07/24 04:25
ALT 16 U/L (0-35) 05/07/24 04:25
Alkaline Phosphatase 52 U/L (38-126) 05/07/24 04:25
Most recent labs reviewed.
Micro Results:
05/03/24 12:22 Blood Culture - Final
Blood/Venous No Growth - Final Report
05/07/24 11:04 C. difficile GDH Antigen & Toxins - Final
Feces/Stool Negative for toxigenic C.difficile
05/02/24 06:43 Blood Culture - Final
Blood/Venous No Growth - Final Report
05/02/24 09:53 Wound Culture - Final
Eliot Neal Pseudomonas aeruginosa
Vianey albicans
Gram Stain - Final
05/02/24 17:27 Urine Culture - Final
Urine NO GROWTH
05/02/24 06:57 MRSA Screen - Final
Nose No Methicillin Resistant Staphylococcus aureus isolated.
[2024-05-09 12:26] LABS: Glucose - Point of Care 159 mg/dl (70-99)
--- NOTE | 2024-05-09 13:04 | WOUNDNOTE ---
WON RN NOTE: Abdominal wound vac dressing changed using strip of white foam at base to cover fat/fascia(per surgery) and in 3cm undermined area proximally. Black foam to 125mmhg. Confirmed with NELLIE Patricia that patient may go home tomorrow. Will
bring up home vac unit to with supplies, incase she goes home with VN. Will do teaching with patient regarding home vac and nursing on how to switch over to home vac unit. Will update [employer] when discharged. Nurse Kathy aware of the above.
--- NOTE | 2024-05-09 13:30 | WOUNDNOTE ---
WON RN NOTE ADDENDUM: Delivered home vac unit with proof of delivery signed and faxed to Flavia at . at bedside, showed how to attach/remove drainage canister and unit plugged in to charge. Pamphlet given and reviewed regarding NPWT.
Answered all questions and aware that all supplies go with patient upon discharge. Nurse Updated on the above, aware unit will need to be switched over if going home. Hospital vac to be placed in [employer] rm for pickup.
[2024-05-09 15:25] VITALS: BP 132/76
[2024-05-09 17:23] LABS: Glucose - Point of Care 168 mg/dl (70-99)
[2024-05-09] MEDS: LOVENOX 40 MG SC (17:25)
[2024-05-09 19:25] VITALS: BP 148/63
[2024-05-09] MEDS: ANESTHETIC LOZENGE 1 LOZENGE PO (19:25)
[2024-05-09] MEDS: DESENEX/MITRAZOL/ZEASORB TOPICAL (20:00)
[2024-05-09] MEDS: PROTONIX 40 MG PO (20:47)
[2024-05-09] MEDS: FLAGYL 250 MG 50 IV (20:48)
[2024-05-09 21:25] LABS: Glucose - Point of Care 142 mg/dl (70-99)
[2024-05-09 23:00] VITALS: BP 141/61
[2024-05-09] MEDS: NOVOLOG FLEXPEN-MODERATE RESISTANCE SC (23:07)
[2024-05-10] VITALS (8 sets, daily range): BP systolic 141–174; BP diastolic 57–71; BMI 27.3
[2024-05-10] MEDS: FLAGYL 250 MG 50 IV ×3 (04:14→19:40)
[2024-05-10] MEDS: SYNTHROID 50 MCG PO (05:13)
[2024-05-10 05:24] LABS: Hematocrit 25.5 % (37.0-47.0); Hemoglobin 8.4 g/dL (12.0-16.0); Mean Corp Hgb Conc. 32.9 g/dL (33.0-37.0); Mean Corpuscular Hgb 28.1 pg (27.0-31.0); Mean Corpuscular Volume 85.3 fL (81.0-99.0); Mean Platelet Volume 8.6 fL (7.4-10.4); Platelet Count 542 10^3/uL (130-400); Red Blood Cell Count 2.99 10^6/uL (4.20-5.40); Red Cell Dist. Width 17.1 % (11.5-14.5); White Blood Cell Count 14.1 10^3/uL (4.8-10.8)
[2024-05-10 05:49] LABS: Blood Urea Nitrogen 17 mg/dl (7-17); Calcium 8.1 mg/dl (8.4-10.2); Carbon Dioxide 21 mmol/L (22-30); Chloride 103 mmol/L (98-107); Estimated Creatinine Clearance 72 ml/min; Glucose 121 mg/dl (70-99); Magnesium 1.6 mg/dl (1.6-2.3); Phosphorus 3.1 mg/dl (2.5-4.5); Potassium 3.7 mmol/L (3.5-5.1); Sodium 137 mmol/L (135-145); eGFR > 60.00
[2024-05-10] MEDS: ADVAIR HFA 115/21 MCG INHALER 2 PUFF INH ×2 (07:35→20:32)
--- NOTE | 2024-05-10 07:35 | W.PN.HOSP.TC ---
Today's Communication/Plan
-
wound care diet as per CRS
abx antifungal as per ID
PT/OT
Eliquis
once xanax for anxiety
Assessment / Plan
Assessment / Plan
Physical exam:
General: no acute distress, appears comfortable
HEENT: Normocephalic, Atraumatic and Moist Mucous Membranes
Respiratory: Clear to Auscultation; Negative Wheezes, Rales or Rhonchi
Cardiac: Regular Rhythm and S1/S2
GI: soft, nontender, bowel sounds present, wound vac in place
Musculoskeletal: No Clubbing, No Cyanosis and No Edema
Neuro: Awake, Alert and Oriented
Psych: Calm
A/P:
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
Transfer from [place] on 05/01/2024
X-ray of the abdomen and clinical picture is consistent with ileus
Continue IV fluids
TPN completed, diet gradually advanced to Low residue as per CRS, tolerating
NG tube discontinued 05/06
Colorectal and general surgery surgery consult and follow-up appreciated
Continue local wound care
PT OT eval appreciated Home services
Persistent leukocytosis, likely related to infected wound, rule out secondary peritonitis:
Pseudomonas and yeast in wound culture
IV Zosyn & micafungin switched to ciprofloxacin and metronidazole 05/03-05/16 and fluconazole 05/04-05/17 as per ID
ID consult appreciated, metronidazole switched to IV while inpt d/t GI upset
CT appreciated small loculated effusions perisplenic and perihepatic too small for drainage per ID discussion with IR
Paroxysmal atrial fibrillation:
Continue cardiac monitoring
Echo reviewed and EF 70 to 75% and no significant valve disease
Cardiology consult appreciated IV amio lopressor converted to oral amio and metoprolol XL
cleared to resume Eliquis as per CRS, Eliquis started 05/10/24
Delirium resolved
Anemia:
Bloody Bowel Movement noted overnight 05/08
H&H stable
Continue to monitor hemoglobin
dvt ppx switched to mechanical
Diabetes mellitus type 2:
On insulin sliding scale
Updated hemoglobin A1c 6.5
Hypothyroidism:
Home synthroid resumed
reported hx Hyperlipidemia
-check lipid panel
GERD:
On Protonix 40 mg IV twice a day and IV Pepcid daily, switched to PO Protonix 40 mg BID
Anxiety:
prn oral alprazolam, discontinued IV Ativan as needed (has not required)
Stage 1 sacral pressure injury, POA
cont local wound care
DVT prophylaxis: Eliquis
CODE STATUS:
Full code
I spent a total of 45 minutes with the patient or on the floor. More than 50% of this time involved counseling and coordination of care.
Anticipated Discharge: 24 - 48 hours
Subjective/Interval History
-
Date of Service: May 10, 2024
patient feeling anxious/overwhelmed with regard to her multiple medical treatments/issues including wound vac and recent start of Eliquis. Otherwise appears comfortable resting in bed, vital signs stable.
Objective Data
-
Labs:
Laboratory Results
05/10/24
04:57
WBC 14.1 H
Hgb 8.4 L
Hct 25.5 L
Plt Count 542 H
Sodium 137
Potassium 3.7
Chloride 103
Carbon Dioxide 21 L
BUN 17
Creatinine 0.6
Glucose 121 H
Calcium 8.1 L
Vital Signs:
Vital Signs
Temp Pulse Resp BP Pulse Ox
97.5 F 62 18 158/64 98
05/10/24 03:00 05/10/24 04:00 05/10/24 03:00 05/10/24 04:00 05/10/24 03:00
I&O
05/09/24 05/10/24 05/11/24
06:59 06:59 06:59
Intake Total 2923 / 2923 1610 / 1610
Output Total 70 / 70
Balance 2853 / 2853 1585 / 1585
[2024-05-10 07:56] LABS: Glucose - Point of Care 124 mg/dl (70-99)
[2024-05-10] MEDS: NOVOLOG FLEXPEN-MODERATE RESISTANCE SC ×4 (07:57→22:28)
[2024-05-10] MEDS: CIPRO 500 MG PO ×2 (08:52→19:40)
[2024-05-10] MEDS: TOPROL XL 25 MG PO (08:52)
[2024-05-10] MEDS: PACERONE 200 MG PO (08:52)
[2024-05-10] MEDS: PROTONIX 40 MG PO ×2 (08:52→19:41)
[2024-05-10] MEDS: DESENEX/MITRAZOL/ZEASORB 1 APPLIC TOPICAL ×2 (08:53→21:40)
[2024-05-10] MEDS: DIFLUCAN 400 MG PO (08:53)
--- NOTE | 2024-05-10 10:06 | W.PN.ID1 ---
Date of Service
Date of Service: May 10, 2024
Today's Communication
Continue ciprofloxacin and metronidazole 05/03-05/16
Continue fluconazole 05/04-05/17
Keep PICC for IV metronidazole for now. At time of discharge, can resume po metronidazole and dc PICC.
Assessment / Plan
Possible secondary peritonitis
Two small, nondrainable intraabdominal fluid collections - possibly abscesses
Leukocytosis - stabilized
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
S/p redo anastomosis 04/27 for necrotic anastomosis
Report of ADR (not allergy) with keflex, levofloxacin, bactrim - diarrhea, doxycycline - rash, and augmentin - unknown (tolerating zosyn)
DM2
- blood cultures x2 in progress no growth to date
- culture from the drain - colonization of the drain vs possible early peritonitis
- Pseudomonas and C albicans
- CT with two fluid collections - discussed with Dr Briggs 05/06 - too small for drain placement
- Continue ciprofloxacin and metronidazole 05/03-05/16
- Pt's GI complaints improved off po metronidazole. Tolerating IV metronidazole.
Pt reports she will 'deal with' po metronidazole intolerance outpt rather than go home with PICC.
Keep PICC for IV metronidazole for now. At time of discharge, can resume po metronidazole and dc PICC.
- continue fluconazole 05/04-05/17
- repeat QTc today improved from 499 to 477.
- follow clinically
Chief Complaint
-: Other (peritonitis)
Subjective / Review of Systems
Feels much improved off of po metronidazole.
Feels weak.
Vital Signs / Physical Exam
Vital Signs
Vital Signs
Temp Pulse Resp BP Pulse Ox
97.7 F 71 16 141/65 96
05/10/24 08:08 05/10/24 08:52 05/10/24 08:08 05/10/24 08:52 05/10/24 08:08
Physical Exam
Constitutional: No Acute Distress and Comfortable
Cardiovascular: Regular Rate and S1/S2
Gastrointestinal: Soft, Non Tender, Non Distended and Other (Right CRISTINA drain clear fluid; left abd CRISTINA drain small amt of purulent fluid)
Genito-Urinary: Negative CVA Tenderness
Neurological: AO x 3
Objective Data
Lab Data
Lab Results
05/10/24 04:57
05/10/24 04:57
Estimated Creat Clear 72 ml/min 05/10/24 04:57
Total Bilirubin 0.3 mg/dl (0.2-1.3) 05/07/24 04:25
AST 24 U/L (14-36) 05/07/24 04:25
ALT 16 U/L (0-35) 05/07/24 04:25
Alkaline Phosphatase 52 U/L (38-126) 05/07/24 04:25
Most recent labs reviewed.
Micro Results:
05/03/24 12:22 Blood Culture - Final
Blood/Venous No Growth - Final Report
05/07/24 11:04 C. difficile GDH Antigen & Toxins - Final
Feces/Stool Negative for toxigenic C.difficile
05/02/24 06:43 Blood Culture - Final
Blood/Venous No Growth - Final Report
05/02/24 09:53 Wound Culture - Final
Eliot Neal Pseudomonas aeruginosa
Vianey albicans
Gram Stain - Final
05/02/24 17:27 Urine Culture - Final
Urine NO GROWTH
05/02/24 06:57 MRSA Screen - Final
Nose No Methicillin Resistant Staphylococcus aureus isolated.
Care Review
Plan reviewed with: Physician (Dr. Wolf)
--- NOTE | 2024-05-10 11:05 | VATNOTE ---
This VAT RN was called by pt's primary RN to D/C pt's PICC line. Order in chart from 05/09, but PICC was never taken out. After speaking to primary RN, pt was put back on IV ABX by ID 05/09. TT ID stone driller physician and they would like PICC to stay
in for possibility of home ABX. Surgery made aware and are in agreement. Will continue to monitor for PICC needs.
[2024-05-10] MEDS: ELIQUIS 5 MG PO ×2 (11:19→19:40)
--- NOTE | 2024-05-10 11:50 | W.PN.CRS1 ---
Today's Communication / Plan
-
As below
Assessment/Plan
-
83-year-old female with PMH of HTN, HLD, COPD, CKD stage III, MS, lung cancer s/p partial lung resection, colon cancer (recent open RHC on 04/22/2024, complicated by A-fib with RVR and anastomotic leak requiring takeback and revision of anastomosis
on 04/27, transferred to [place] per family request on 05/02); now with open midline wound and to CRISTINA drains bilaterally
-05/03 developed N/V requiring NG tube
-05/05 CT scan showing small perisplenic and perihepatic collections, no other acute findings
AFVSS
WBC 14.1 from 14.0, Hb 8.4 from 8.1, CR 0.6
� Persistent leukocytosis with elevated neutrophils; currently asymptomatic
�Would continue to trend WBC/fever curve and monitor for new symptoms
�Appreciate ID; continue antibiotics
�Source may be from the PICC, may be from the midline wound, but the last picture just showed fibrinous exudate no signs of infection; most likely, represents a smoldering intra-abdominal infection related to the left CRISTINA that may take time to
completely resolve
�Okay for Eliquis today
� Cont low residue
� Continue vac therapy; fibrinous exudate will likely need some debridement at next VAC change
� Continue pain control with Tylenol/Toradol
� Encourage OOB/IS; appreciate PT
� Appreciate hospitalist
Subjective Data
Subjective Data
Date of Service: May 10, 2024
No overnight events.
Pain controlled.
Denies nausea/vomiting. Tolerating diet.
+flatus +BMs +voiding
Objective Data
-
Vital Signs
Temp Pulse Resp BP Pulse Ox
97.7 F 65 14 143/64 98
05/10/24 11:38 05/10/24 11:38 05/10/24 11:38 05/10/24 11:38 05/10/24 11:38
Intake & Output
05/09/24 05/10/24 05/11/24
06:59 06:59 06:59
Intake Total 2923 / 2923 1610 / 1610
Output Total 70 / 70
Balance 2853 / 2853 1585 / 1585
Intake:
Oral fluids 1620 / 1620 1560 / 1560
IV fluids (Total) 600 / 600
IV piggybacks 103 / 103 50 / 50
TPN/PPN 600 / 600
Output:
Drain Output (Total) 70 /
Left Abdomen Eliot-Neal 30 / 30
Right Abdomen Eliot-Neal 40 / 40
Other:
Number of approximated SMALL 1
amounts of urine
Number of approximated MODERATE 3 2
amounts of urine
Lab Results
05/10/24 04:57
05/10/24 04:57
Physical Exam
-
General: No Acute Distress and AOx3
HEENT: Grossly Normal
Abdomen: Soft, Non Distended, Tender (Appropriately tender near drain sites and wound VAC;), No Guarding, No Rebound and Other (Right CRISTINA-10 mL serous, L CRISTINA-15 mL purulent)
Skin: Warm and Dry
Wound: No Signs of Infection, No Skin Erythema and Other (VAC in place, functioning)
[2024-05-10 11:56] LABS: Glucose - Point of Care 115 mg/dl (70-99)
[2024-05-10] MEDS: FLUSH (NSS) 2 FLUSH IV (12:27)
[2024-05-10 13:30] LABS: Absolute Neutrophils -Man Diff 11.2 10^3/uL (1.4-6.5); Band Neutrophils 1 % (0-3); Eosinophils 5 % (0-6); Lymphocytes 9 % (20-51); Monocytes 5 % (2-9); Segmented Neutrophils 79 % (42-75)
[2024-05-10 13:31] LABS: Atypical Lymphocytes 1 %; Platelets Checked YES
[2024-05-10 13:32] LABS: Anisocytosis Slight; Normal RBC Morphology No
[2024-05-10 13:33] LABS: Ovalocytes Slight; Polychromasia Slight; Target Cells Slight; Total Cells Counted 100
--- NOTE | 2024-05-10 15:14 | PTCARENOTE ---
pt adamantly insisting the soft care static overlay mattress be removed from the bed at this time. education provided concerning frequent position changes . pt verbalized understanding.
[2024-05-10] MEDS: XANAX 0.25 MG PO (16:15)
[2024-05-10 17:18] LABS: Glucose - Point of Care 106 mg/dl (70-99)
[2024-05-10] MEDS: ANESTHETIC LOZENGE 1 LOZENGE PO (19:40)
[2024-05-10 21:21] LABS: Glucose - Point of Care 131 mg/dl (70-99)
[2024-05-11 03:09] VITALS: BP 142/61
[2024-05-11] MEDS: FLAGYL 250 MG 50 IV (04:16)
[2024-05-11] MEDS: ANESTHETIC LOZENGE 1 LOZENGE PO (04:16)
[2024-05-11] MEDS: SYNTHROID 50 MCG PO (05:00)
[2024-05-11 05:40] VITALS: BMI 27.2
--- NOTE | 2024-05-11 07:01 | W.PN.HOSP.TC ---
Today's Communication/Plan
-
wound care diet as per CRS
abx antifungal as per ID
PT/OT
Eliquis
monitor H&H
Assessment / Plan
Assessment / Plan
Physical exam:
General: no acute distress, appears comfortable
HEENT: Normocephalic, Atraumatic and Moist Mucous Membranes
Respiratory: Clear to Auscultation; Negative Wheezes, Rales or Rhonchi
Cardiac: Regular Rhythm and S1/S2
GI: soft, nontender, bowel sounds present, wound vac in place
Musculoskeletal: No Clubbing, No Cyanosis and No Edema
Neuro: Awake, Alert and Oriented
Psych: Calm
A/P:
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
Transfer from [place] on 05/01/2024
X-ray of the abdomen and clinical picture is consistent with ileus
Continue IV fluids
TPN completed, diet gradually advanced to Low residue as per CRS, tolerating
NG tube discontinued 05/06
Colorectal and general surgery surgery consult and follow-up appreciated
Continue local wound care
PT OT eval appreciated Home services
Persistent leukocytosis, likely related to infected wound, rule out secondary peritonitis:
Pseudomonas and yeast in wound culture
IV Zosyn & micafungin switched to ciprofloxacin and metronidazole 05/03-05/16 and fluconazole 05/04-05/17 as per ID
ID consult appreciated, metronidazole switched to IV while inpt d/t GI upset
CT appreciated small loculated effusions perisplenic and perihepatic too small for drainage per ID discussion with IR
Paroxysmal atrial fibrillation:
Continue cardiac monitoring
Echo reviewed and EF 70 to 75% and no significant valve disease
Cardiology consult appreciated IV amio lopressor converted to oral amio and metoprolol XL
cleared to resume Eliquis as per CRS, Eliquis started 05/10/24 tolerating
Delirium resolved
Anemia:
Bloody Bowel Movement noted overnight 05/08
H&H stable
Continue to monitor hemoglobin
Diabetes mellitus type 2:
On insulin sliding scale
Updated hemoglobin A1c 6.5
Hypothyroidism:
Home synthroid resumed
reported hx Hyperlipidemia, resolved
-updated lipid panel noted wnl
GERD:
On Protonix 40 mg IV twice a day and IV Pepcid daily, switched to PO Protonix 40 mg BID
Anxiety:
prn oral alprazolam, discontinued IV Ativan as needed (has not required)
Stage 1 sacral pressure injury, POA
cont local wound care
DVT prophylaxis: Eliquis
CODE STATUS:
Full code
I spent a total of 45 minutes with the patient or on the floor. More than 50% of this time involved counseling and coordination of care.
Anticipated Discharge: 24 - 48 hours
Subjective/Interval History
-
Date of Service: May 11, 2024
No acute distress sitting up comfortably in chair. Frustrated with regards to length of stay and physical deconditioning.
Objective Data
-
Labs:
Laboratory Results
05/11/24
06:00
WBC Pending
Hgb Pending
Hct Pending
Plt Count Pending
Sodium Pending
Potassium Pending
Chloride Pending
Carbon Dioxide Pending
BUN Pending
Creatinine Pending
Glucose Pending
Calcium Pending
Vital Signs:
Vital Signs
Temp Pulse Resp BP Pulse Ox
98 F 72 20 142/61 96
05/11/24 03:09 05/11/24 03:09 05/11/24 03:09 05/11/24 03:09 05/11/24 03:09
I&O
05/10/24 05/11/24 05/12/24
06:59 06:59 06:59
Intake Total 1610 / 1610 1250 / 1250
Output Total 65 / 65
Balance 1585 / 1585 1185 / 1185
[2024-05-11 07:28] LABS: Glucose - Point of Care 139 mg/dl (70-99)
[2024-05-11] MEDS: ADVAIR HFA 115/21 MCG INHALER 2 PUFF INH ×2 (07:29→20:42)
--- NOTE | 2024-05-11 07:35 | PTCARENOTE ---
IV notified that cathflo was sent from RX and is being held in pt drawer with RN.
[2024-05-11] MEDS: CATHFLO/ACTIVASE 2 MG INTRACATH (07:42)
[2024-05-11 08:03] VITALS: BP 165/85
[2024-05-11 09:18] LABS: Hematocrit 28.6 % (37.0-47.0); Hemoglobin 9.5 g/dL (12.0-16.0); Mean Corp Hgb Conc. 33.2 g/dL (33.0-37.0); Mean Corpuscular Hgb 28.1 pg (27.0-31.0); Mean Corpuscular Volume 84.6 fL (81.0-99.0); Mean Platelet Volume 8.4 fL (7.4-10.4); Platelet Count 592 10^3/uL (130-400); Red Blood Cell Count 3.38 10^6/uL (4.20-5.40); White Blood Cell Count 14.2 10^3/uL (4.8-10.8)
[2024-05-11 09:29] LABS: Blood Urea Nitrogen 13 mg/dl (7-17); Calcium 8.2 mg/dl (8.4-10.2); Carbon Dioxide 23 mmol/L (22-30); Chloride 101 mmol/L (98-107); Estimated Creatinine Clearance 72 ml/min; Glucose 154 mg/dl (70-99); HDL Cholesterol 40 mg/dl; LDL Cholesterol, Calculated 48 mg/dl; Magnesium 1.5 mg/dl (1.6-2.3); Phosphorus 3.2 mg/dl (2.5-4.5); Potassium 3.7 mmol/L (3.5-5.1); Sodium 136 mmol/L (135-145); Total Cholesterol 111 mg/dl (50-199); Triglyceride 116 mg/dl (10-149); Very Low Density Lipoprotein 23 mg/dl (0-30); eGFR > 60.00
[2024-05-11] MEDS: NOVOLOG FLEXPEN-MODERATE RESISTANCE SC ×3 (09:31→17:28)
[2024-05-11] MEDS: ELIQUIS 5 MG PO ×2 (09:32→20:16)
[2024-05-11] MEDS: PROTONIX 40 MG PO ×2 (09:33→20:16)
[2024-05-11] MEDS: TOPROL XL 25 MG PO (09:35)
[2024-05-11] MEDS: PACERONE 200 MG PO (09:35)
[2024-05-11] MEDS: DIFLUCAN 400 MG PO (09:35)
[2024-05-11] MEDS: CIPRO 500 MG PO ×2 (09:35→20:16)
[2024-05-11] MEDS: DESENEX/MITRAZOL/ZEASORB 1 APPLIC TOPICAL ×2 (09:38→20:17)
--- NOTE | 2024-05-11 10:04 | W.PN.ID1 ---
Date of Service
Date of Service: May 11, 2024
Today's Communication
Continue cipro/metronidzole/fluconazole.
Assessment / Plan
Possible secondary peritonitis
Two small, nondrainable intraabdominal fluid collections - possibly abscesses
Leukocytosis - stable
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
S/p redo anastomosis 04/27 for necrotic anastomosis
Report of ADR (not allergy) with keflex, levofloxacin, bactrim - diarrhea, doxycycline - rash, and augmentin - unknown (tolerating zosyn)
DM2
- blood cultures x2 in progress no growth to date
- culture from the drain - colonization of the drain vs possible early peritonitis
- Pseudomonas and C albicans
- CT with two fluid collections - discussed with Dr Briggs 05/06 - too small for drain placement
- Continue ciprofloxacin and metronidazole 05/03-05/16
- Pt's GI complaints improved off po metronidazole. Tolerating IV metronidazole.
Pt reports she will 'deal with' po metronidazole intolerance outpt rather than go home with PICC.
Keep PICC for IV metronidazole for now. At time of discharge, can resume po metronidazole and dc PICC.
- continue fluconazole 05/04-05/17
- repeat QTc today improved from 499 to 477.
- follow clinically
Chief Complaint
-: Other (peritonitis)
Subjective / Review of Systems
Feels weak and deconditioned.
No nausea today.
Vital Signs / Physical Exam
Vital Signs
Vital Signs
Temp Pulse Resp BP Pulse Ox
97.4 F 88 20 165/85 96
05/11/24 08:03 05/11/24 08:03 05/11/24 08:03 05/11/24 08:03 05/11/24 08:03
Physical Exam
Constitutional: No Acute Distress and Comfortable
Cardiovascular: Regular Rate and S1/S2
Gastrointestinal: Soft, Non Tender and Other (R Abd CRISTINA drain: serous fluid. Left abdomen: thinner purulent fluid)
Neurological: AO x 3
Objective Data
Lab Data
Lab Results
05/11/24 09:09
05/11/24 09:09
Estimated Creat Clear 72 ml/min 05/11/24 09:09
Total Bilirubin 0.3 mg/dl (0.2-1.3) 05/07/24 04:25
AST 24 U/L (14-36) 05/07/24 04:25
ALT 16 U/L (0-35) 05/07/24 04:25
Alkaline Phosphatase 52 U/L (38-126) 05/07/24 04:25
Most recent labs reviewed.
Micro Results:
05/03/24 12:22 Blood Culture - Final
Blood/Venous No Growth - Final Report
05/07/24 11:04 C. difficile GDH Antigen & Toxins - Final
Feces/Stool Negative for toxigenic C.difficile
05/02/24 06:43 Blood Culture - Final
Blood/Venous No Growth - Final Report
05/02/24 09:53 Wound Culture - Final
Eliot Neal Pseudomonas aeruginosa
Vianey albicans
Gram Stain - Final
05/02/24 17:27 Urine Culture - Final
Urine NO GROWTH
05/02/24 06:57 MRSA Screen - Final
Nose No Methicillin Resistant Staphylococcus aureus isolated.
[2024-05-11 11:20] VITALS: BP 118/75
[2024-05-11 11:48] LABS: Glucose - Point of Care 123 mg/dl (70-99)
[2024-05-11] MEDS: MAGNESIUM SULFATE 100 IV (12:44)
--- NOTE | 2024-05-11 14:11 | W.PN.CRS1 ---
Addendum entered and electronically signed by Arjun Wolf MD 05/11/24 14:30:
I saw and examined the patient.
The PICK UP DRIVER's note was reviewed and I agree with the note.
Comment:
83-year-old female with PMH of HTN, HLD, COPD, CKD stage III, MS, lung cancer s/p partial lung resection, colon cancer (recent open RHC on 04/22/2024, complicated by A-fib with RVR and anastomotic leak requiring takeback and revision of anastomosis
on 04/27, transferred to [place] per family request on 05/02); now with open midline wound and to CRISTINA drains bilaterally
-05/03 developed N/V requiring NG tube
-05/05 CT scan showing small perisplenic and perihepatic collections, no other acute findings
AFVSS, abd soft, mildly protuberant, nontympanitic, appropriately tender near VAC and drain; VAC with serosanguineous output, left CRISTINA with 30 mL serous, right CRISTINA with 30 mL light purulent
WBC 14.2 from 14., Hb 9.5 from 8.4, CR 0.6
� Persistent leukocytosis with elevated neutrophils; currently asymptomatic
�Would continue to trend WBC/fever curve and monitor for new symptoms
�Appreciate ID; continue antibiotics
�Source may be from the PICC, may be from the midline wound, but the last picture just showed fibrinous exudate no signs of infection; most likely, represents a smoldering intra-abdominal infection related to the right CRISTINA that will take time to
completely resolve
� Continue Eliquis today
� Cont low residue
� Continue vac therapy; fibrinous exudate may need some debridement at next VAC change
� Continue pain control with Tylenol/Toradol
� Encourage OOB/IS; appreciate PT
� Appreciate hospitalist
Dispo�hopefully DC tomorrow; she feels unsteady on her feet, will likely need short stay in rehab, pending PT evaluation
Original Note:
Today's Communication / Plan
-
PT eval
Continue drains/vac
Assessment/Plan
-
83-year-old female with PMH of HTN, HLD, COPD, CKD stage III, MS, lung cancer s/p partial lung resection, colon cancer (recent open RHC on 04/22/2024, complicated by A-fib with RVR and anastomotic leak requiring takeback and revision of anastomosis
on 04/27, transferred to [place] per family request on 05/02); now with open midline wound and to CRISTINA drains bilaterally
-05/03 developed N/V requiring NG tube
-05/05 CT scan showing small perisplenic and perihepatic collections, no other acute findings
AFVSS
WBC 14.2 from 14.1, Hb 9.5 from 8.4, CR 0.6
Hypomagnesemia: replaced
� Persistent leukocytosis with elevated neutrophils; currently asymptomatic
�Would continue to trend WBC/fever curve and monitor for new symptoms
�Appreciate ID; continue antibiotics
�Source may be from the PICC, may be from the midline wound, but the last picture just showed fibrinous exudate no signs of infection; most likely, represents a smoldering intra-abdominal infection related to the left CRISTINA that may take time to
completely resolve
�Okay for Eliquis
� Cont low residue diet
� Continue vac therapy; fibrinous exudate will likely need some debridement at next VAC change
� Continue pain control with Tylenol/Toradol
� Encourage OOB/IS; appreciate PT
� Appreciate hospitalist
Nearing readiness for discharge. Will remove left CRISTINA prior to d/c and leave right in place. Has declined PT for the past few days d/t dizziness and unsteadiness on her feet. Concerned she may fall. Will need reevaluation by PT and possible rehab
placement.
Subjective Data
Subjective Data
Date of Service: May 11, 2024
Patient seen and examined at bedside with Dr. Wolf. WilianOB to chair. Notes she feels wobbly and dizzy at times. Denies n/v. Tolerating diet. Passing stools/flatus. Initially loose stools but now more solid.
Objective Data
-
Vital Signs
Temp Pulse Resp BP Pulse Ox
98.0 F 86 16 118/75 98
05/11/24 11:20 05/11/24 11:20 05/11/24 11:20 05/11/24 11:20 05/11/24 11:20
Intake & Output
05/10/24 05/11/24 05/12/24
06:59 06:59 06:59
Intake Total 1610 / 1610 1250 / 1250
Output Total
Balance 1585 / 1585 1185 / 1185
Intake:
Oral fluids 1560 / 1560 1200 / 1200
IV piggybacks 50 / 50 50 / 50
Output:
Drain Output (Total)
Left Abdomen Eliot-Neal 15 30 / 30
Right Abdomen Eliot-Neal 10 35 / 35
Other:
Number of approximated SMALL 1
amounts of urine
Number of approximated MODERATE 2 3
amounts of urine
Number of approximated LARGE 1
amounts of urine
Lab Results
05/11/24 09:09
05/11/24 09:09
Physical Exam
-
General: No Acute Distress and AOx3
HEENT: Grossly Normal
Abdomen: Soft, Non Distended, Tender (Appropriately tender near drain sites and wound VAC;), No Guarding, No Rebound and Other (Right CRISTINA-20 mL purulent, L CRISTINA-15 mL serous)
Skin: Warm and Dry
Wound: No Signs of Infection, No Skin Erythema and Other (VAC in place, functioning)
[2024-05-11] MEDS: FLAGYL 500 MG 100 IV ×2 (15:11→21:48)
[2024-05-11 15:49] VITALS: BP 122/57
[2024-05-11 17:13] LABS: Glucose - Point of Care 132 mg/dl (70-99)
[2024-05-11 19:04] VITALS: BP 127/61
[2024-05-11 21:45] LABS: Glucose - Point of Care 155 mg/dl (70-99)
[2024-05-11] MEDS: NOVOLOG FLEXPEN-MODERATE RESISTANCE 1 UNITS SC (21:48)
[2024-05-11 23:17] VITALS: BP 136/60
[2024-05-12 01:15] VITALS: BMI 27.2
[2024-05-12 04:30] LABS: Hemoglobin 8.4 g/dL (12.0-16.0); Mean Corp Hgb Conc. 32.3 g/dL (33.0-37.0); Mean Corpuscular Volume 86.7 fL (81.0-99.0); Mean Platelet Volume 8.5 fL (7.4-10.4); Platelet Count 475 10^3/uL (130-400); Red Cell Dist. Width 16.9 % (11.5-14.5); White Blood Cell Count 11.8 10^3/uL (4.8-10.8)
[2024-05-12 04:55] LABS: Blood Urea Nitrogen 15 mg/dl (7-17); Calcium 7.8 mg/dl (8.4-10.2); Carbon Dioxide 24 mmol/L (22-30); Chloride 101 mmol/L (98-107); Estimated Creatinine Clearance 61 ml/min; Glucose 130 mg/dl (70-99); Potassium 3.2 mmol/L (3.5-5.1); Sodium 135 mmol/L (135-145); eGFR > 60.00
[2024-05-12 06:00] VITALS: BMI 27.2
[2024-05-12] MEDS: KCL 40 MEQ PO (06:04)
[2024-05-12] MEDS: FLAGYL 500 MG 100 IV ×3 (06:04→21:26)
[2024-05-12] MEDS: SYNTHROID 50 MCG PO (06:05)
--- NOTE | 2024-05-12 07:24 | W.PN.HOSP.TC ---
Today's Communication/Plan
-
Antibiotics. PT OT reevaluate & disease case manager rn for discharge disposition.
Assessment / Plan
Assessment / Plan
Physical exam:
General: no acute distress, appears comfortable
HEENT: Normocephalic, Atraumatic and Moist Mucous Membranes
Respiratory: Clear to Auscultation; Negative Wheezes, Rales or Rhonchi
Cardiac: Regular Rhythm and S1/S2
GI: soft, nontender, bowel sounds present, wound vac in place
Musculoskeletal: No Clubbing, No Cyanosis and No Edema
Neuro: Awake, Alert and Oriented
Psych: Calm
A/P:
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
Transfer from [place] on 05/01/2024
X-ray of the abdomen and clinical picture is consistent with ileus
Continue IV fluids
TPN completed, diet gradually advanced to Low residue as per CRS, tolerating
NG tube discontinued 05/06
Colorectal and general surgery surgery consult and follow-up appreciated
Continue local wound care
PT OT jacobo appreciated Home services
Status post left CRISTINA drain removed by surgery today
manager willow to reevaluate for possible rehab
Persistent leukocytosis, likely related to infected wound, rule out secondary peritonitis:
Pseudomonas and yeast in wound culture
IV Zosyn & micafungin switched to ciprofloxacin and metronidazole 05/03-05/16 and fluconazole 05/04-05/17 as per ID
ID consult appreciated, metronidazole switched to IV while inpt d/t GI upset
CT appreciated small loculated effusions perisplenic and perihepatic too small for drainage per ID discussion with IR
Paroxysmal atrial fibrillation:
Continue cardiac monitoring
Echo reviewed and EF 70 to 75% and no significant valve disease
Cardiology consult appreciated IV amio lopressor converted to oral amio and metoprolol XL
cleared to resume Eliquis as per CRS, Eliquis started 05/10/24 tolerating
Delirium resolved
Anemia:
Bloody Bowel Movement noted overnight 05/08
H&H stable
Continue to monitor hemoglobin
Diabetes mellitus type 2:
On insulin sliding scale
Updated hemoglobin A1c 6.5
Hypothyroidism:
Home synthroid resumed
reported hx Hyperlipidemia, resolved
-updated lipid panel noted wnl
GERD:
On Protonix 40 mg IV twice a day and IV Pepcid daily, switched to PO Protonix 40 mg BID
Anxiety:
prn oral alprazolam, discontinued IV Ativan as needed (has not required)
Stage 1 sacral pressure injury, POA
cont local wound care
DVT prophylaxis: Eliquis
CODE STATUS:
Full code
Anticipated Discharge: Within 24 hours
Subjective/Interval History
-
Date of Service: May 12, 2024
Patient denies nausea or vomiting today. Afebrile
Objective Data
-
Labs:
Laboratory Results
05/12/24
04:13
WBC 11.8 H
Hgb 8.4 L
Hct 26.0 L
Plt Count 475 H
Sodium 135
Potassium 3.2 L
Chloride 101
Carbon Dioxide 24
BUN 15
Creatinine 0.7
Glucose 130 H
Calcium 7.8 L
Vital Signs:
Vital Signs
Temp Pulse Resp BP Pulse Ox
97.7 F 66 18 136/60 98
05/11/24 23:17 05/11/24 23:17 05/11/24 23:17 05/11/24 23:17 05/11/24 23:17
I&O
05/11/24 05/12/24 05/13/24
06:59 06:59 06:59
Intake Total 1250 / 1250 1680 / 1680
Output Total 65 / 65 33 / 33
Balance 1185 / 1185 1647 / 1647
[2024-05-12 07:29] VITALS: BP 141/56
[2024-05-12 07:39] LABS: Glucose - Point of Care 126 mg/dl (70-99)
[2024-05-12] MEDS: NOVOLOG FLEXPEN-MODERATE RESISTANCE SC ×4 (07:52→21:54)
[2024-05-12] MEDS: CIPRO 500 MG PO ×2 (07:53→21:26)
[2024-05-12] MEDS: TOPROL XL 25 MG PO (07:53)
[2024-05-12] MEDS: PROTONIX 40 MG PO ×2 (07:53→21:26)
[2024-05-12] MEDS: PACERONE 200 MG PO (07:53)
[2024-05-12] MEDS: ELIQUIS 5 MG PO ×2 (07:53→21:26)
[2024-05-12] MEDS: DIFLUCAN 400 MG PO (07:54)
[2024-05-12] MEDS: DESENEX/MITRAZOL/ZEASORB 1 APPLIC TOPICAL ×2 (07:54→21:26)
[2024-05-12] MEDS: ADVAIR HFA 115/21 MCG INHALER 2 PUFF INH ×2 (08:13→19:53)
--- NOTE | 2024-05-12 10:45 | W.PN.ID1 ---
Date of Service
Date of Service: May 12, 2024
Today's Communication
- Continue ciprofloxacin and metronidazole 05/03-05/16
- Pt's complaint of metallic taste in the mouth improved off po metronidazole. Tolerating IV metronidazole.
- Keep PICC for IV metronidazole for now. At time of discharge, if going to her home can resume po metronidazole and dc PICC, she reports she will 'deal with' the metallic taste rather than do home IV therapy; alternatively if she is going to [facility]
could retain PICC through 05/16 for IV metronidazole there and remove after completion of the course
- continue fluconazole 05/04-05/17
Assessment / Plan
Possible secondary peritonitis
Two small, nondrainable intraabdominal fluid collections - possibly abscesses
Leukocytosis - stable
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
S/p redo anastomosis 04/27 for necrotic anastomosis
Report of ADR (not allergy) with keflex, levofloxacin, bactrim - diarrhea, doxycycline - rash, and augmentin - unknown (tolerating zosyn)
DM2
- blood cultures x2 finalized negative
- culture from the drain - colonization of the drain vs possible early peritonitis
- Pseudomonas and C albicans
- CT with two fluid collections
- Continue ciprofloxacin and metronidazole 05/03-05/16
- Pt's complaint of metallic taste in the mouth improved off po metronidazole. Tolerating IV metronidazole.
- Keep PICC for IV metronidazole for now. At time of discharge, if going to her home can resume po metronidazole and dc PICC, she reports she will 'deal with' the metallic taste rather than do home IV therapy; alternatively if she is going to [facility]
could retain PICC through 05/16 for IV metronidazole there and remove after completion of the course
- continue fluconazole 05/04-05/17
- last qtc 477 - acceptable
- follow clinically
Chief Complaint
-: Other (peritonitis)
Subjective / Review of Systems
afebrile
bp stable
no complaints
Vital Signs / Physical Exam
Vital Signs
Vital Signs
Temp Pulse Resp BP Pulse Ox
98.2 F 65 14 141/56 99
05/12/24 07:29 05/12/24 08:17 05/12/24 08:17 05/12/24 07:53 05/12/24 08:17
Physical Exam
Constitutional: No Acute Distress and Chronically Ill
Cardiovascular: Regular Rate and S1/S2; Negative Murmur or Rub
Pulmonary: Clear and Symmetric; Negative Wheezes or Rales
Gastrointestinal: Soft, Non Tender, Non Distended and Normal Bowel Sounds
Skin: Warm and Dry; Negative Rash or Jaundice
Wound: Other (wound vac in place)
Lines: PICC
Objective Data
Lab Data
Lab Results
05/12/24 04:13
05/12/24 04:13
Estimated Creat Clear 61 ml/min 05/12/24 04:13
Total Bilirubin 0.3 mg/dl (0.2-1.3) 05/07/24 04:25
AST 24 U/L (14-36) 05/07/24 04:25
ALT 16 U/L (0-35) 05/07/24 04:25
Alkaline Phosphatase 52 U/L (38-126) 05/07/24 04:25
Most recent labs reviewed note declining leukocytosis and thrombocytosis
Micro Results:
05/03/24 12:22 Blood Culture - Final
Blood/Venous No Growth - Final Report
05/07/24 11:04 C. difficile GDH Antigen & Toxins - Final
Feces/Stool Negative for toxigenic C.difficile
05/02/24 06:43 Blood Culture - Final
Blood/Venous No Growth - Final Report
05/02/24 09:53 Wound Culture - Final
Eliot Neal Pseudomonas aeruginosa
Vianey albicans
Gram Stain - Final
05/02/24 17:27 Urine Culture - Final
Urine NO GROWTH
05/02/24 06:57 MRSA Screen - Final
Nose No Methicillin Resistant Staphylococcus aureus isolated.
--- NOTE | 2024-05-12 11:40 | W.PN.CRS1 ---
Today's Communication / Plan
-
left shayy drain removed
follow exam
Assessment/Plan
-
83-year-old female with PMH of HTN, HLD, COPD, CKD stage III, MS, lung cancer s/p partial lung resection, colon cancer (recent open RHC on 04/22/2024, complicated by A-fib with RVR and anastomotic leak requiring takeback and revision of anastomosis
on 04/27, transferred to [place] per family request on 05/02); now with open midline wound and to SHAYY drains bilaterally
-05/03 developed N/V requiring NG tube
-05/05 CT scan showing small perisplenic and perihepatic collections, no other acute findings
AFVSS
WBC 11.8 from 14.2, Hb 8.4 from 9.5, CR 0.7
� Persistent leukocytosis with elevated neutrophils; currently asymptomatic
�Would continue to trend WBC/fever curve and monitor for new symptoms
�Appreciate ID; continue antibiotics
�Okay for Eliquis
� Cont low residue diet
� Continue vac therapy; fibrinous exudate will likely need some debridement at next VAC change
� Continue pain control with Tylenol/Toradol
� Encourage OOB/IS; appreciate PT
� Appreciate hospitalist
- Left drain removed at bedside
- Given bloating, keep another day to monitor exam
- Dispo: home with VN vs rehab
Subjective Data
Subjective Data
Date of Service: May 12, 2024
Patient states she feels very weak. She is also bloated but does not feel bloated. She tolerated breakfast this morning. She denies nausea or vomiting.
Objective Data
-
Vital Signs
Temp Pulse Resp BP Pulse Ox
98.2 F 65 14 141/56 99
05/12/24 07:29 05/12/24 08:17 05/12/24 08:17 05/12/24 07:53 05/12/24 08:17
Intake & Output
05/11/24 05/12/24 05/13/24
06:59 06:59 06:59
Intake Total 1250 / 1250 1680 / 1680
Output Total
Balance 1185 / 1185 1647 / 1647
Intake:
Oral fluids 1200 / 1200 1440 / 1440
IV fluids (Total) 40 / 40
IV piggybacks 50 / 50 200 / 200
Output:
Drain Output (Total)
Left Abdomen Eliot-Neal 30 / 30
Right Abdomen Eliot-Neal 35 / 35
Other:
Number of approximated MODERATE 3 2
amounts of urine
Number of approximated LARGE 1
amounts of urine
Lab Results
05/12/24 04:13
05/12/24 04:13
Physical Exam
-
General: No Acute Distress and AOx3
Abdomen: Soft, Distended, Non Tender and Other (right drain pus mixed with serous, left drain serous, midline wound vac in place)
Skin: Warm and Dry
[2024-05-12 11:50] LABS: Glucose - Point of Care 141 mg/dl (70-99)
[2024-05-12 13:00] VITALS: BP 118/58; BP 131/64; BP 142/64; PULSE 68; PULSE 87; O2SAT 99
[2024-05-12] MEDS: ProAmatine 2.5 MG PO ×2 (14:00→17:51)
[2024-05-12] MEDS: FLUSH (NSS) 1 FLUSH IV (14:13)
--- NOTE | 2024-05-12 14:54 | WOUNDNOTE ---
WON RN NOTE: Wound vac dressing changed on Abdomen. Base appears more yellow, reviewed surgical notes regarding bedside debridement. TT picture to NELLIE Patricia, unable to do debridement at this time. NELLIE Patricia clarified where fascia is located
amongst fat layer. Recommend continue white foam to medial edge of yellow and into undermined area proximally at 3cm, Black foam to remainder of wound. Cheriton proximal and distal to open wound protected with gauze under drape. Patient tolerated
procedure, waiting on decision regarding SNF.
[2024-05-12 15:34] VITALS: BP 123/58
--- NOTE | 2024-05-12 15:55 | CM ---
Patient seen at bedside.
Discussed options of SNF as rec by PT/OT
Referrals placed in [facility]
Will need to obtain insurance authorization
PLAN: SNF, pending bed availability
[2024-05-12 16:15] VITALS: BP 139/69; BP 95/64; PULSE 67; O2SAT 99
[2024-05-12 16:48] LABS: Glucose - Point of Care 113 mg/dl (70-99)
[2024-05-12 21:40] LABS: Glucose - Point of Care 131 mg/dl (70-99)
[2024-05-12 23:23] VITALS: BP 123/54
[2024-05-13] MEDS: FLAGYL 500 MG 100 IV ×3 (05:22→21:32)
[2024-05-13] MEDS: SYNTHROID 50 MCG PO (05:22)
[2024-05-13 06:00] VITALS: BMI 25.4
[2024-05-13 06:24] LABS: % Basophils 0.5 % (0-2); % Eosinophils 3.4 % (0-6); % Immature Granulocytes 0.9 % (0-0.5); % Lymphocytes 13.4 % (20.5-51.1); % Monocytes 9.5 % (1.7-9.3); % Neutrophils 72.3 % (42.2-75.2); Absolute Basophils 0.1 10^3/uL (0-0.2); Absolute Eosinophils 0.3 10^3/uL (0-0.7); Absolute Immature Granulocytes 0.1 10^3/uL (0-0.05); Absolute Lymphocytes 1.4 10^3/uL (1.2-3.4); Absolute Neutrophils 7.3 10^3/uL (1.4-6.5); Hematocrit 25.2 % (37.0-47.0); Hemoglobin 8.5 g/dL (12.0-16.0); Mean Corp Hgb Conc. 33.7 g/dL (33.0-37.0); Mean Corpuscular Hgb 28.2 pg (27.0-31.0); Mean Corpuscular Volume 83.7 fL (81.0-99.0); Mean Platelet Volume 8.3 fL (7.4-10.4); Nucleated Red Blood Cells % 0 %; Platelet Count 465 10^3/uL (130-400); Red Blood Cell Count 3.01 10^6/uL (4.20-5.40); Red Cell Dist. Width 16.8 % (11.5-14.5); White Blood Cell Count 10.1 10^3/uL (4.8-10.8)
[2024-05-13 06:46] LABS: Blood Urea Nitrogen 12 mg/dl (7-17); Calcium 8.1 mg/dl (8.4-10.2); Carbon Dioxide 22 mmol/L (22-30); Chloride 104 mmol/L (98-107); Estimated Creatinine Clearance 54 ml/min; Glucose 124 mg/dl (70-99); Magnesium 1.8 mg/dl (1.6-2.3); Potassium 3.5 mmol/L (3.5-5.1); Sodium 136 mmol/L (135-145); eGFR > 60.00
[2024-05-13 07:16] LABS: Glucose - Point of Care 116 mg/dl (70-99)
[2024-05-13] MEDS: NOVOLOG FLEXPEN-MODERATE RESISTANCE SC ×3 (07:16→16:56)
[2024-05-13 07:35] VITALS: BP 126/59
[2024-05-13] MEDS: ADVAIR HFA 115/21 MCG INHALER 2 PUFF INH ×2 (07:45→20:16)
[2024-05-13] MEDS: DESENEX/MITRAZOL/ZEASORB 1 APPLIC TOPICAL ×2 (08:05→20:32)
[2024-05-13] MEDS: PACERONE 200 MG PO (08:05)
[2024-05-13] MEDS: ELIQUIS 5 MG PO ×2 (08:05→20:31)
[2024-05-13] MEDS: DIFLUCAN 400 MG PO (08:05)
[2024-05-13] MEDS: PROTONIX 40 MG PO ×2 (08:05→20:31)
[2024-05-13] MEDS: ProAmatine 2.5 MG PO ×2 (08:06→12:21)
[2024-05-13] MEDS: TOPROL XL 25 MG PO (08:06)
[2024-05-13] MEDS: CIPRO 500 MG PO ×2 (08:06→20:31)
--- NOTE | 2024-05-13 08:40 | W.PN.HOSP.TC ---
Today's Communication/Plan
-
Discharge planning in progress.
Assessment / Plan
Assessment / Plan
Physical exam:
General: no acute distress, appears comfortable
HEENT: Normocephalic, Atraumatic and Moist Mucous Membranes
Respiratory: Clear to Auscultation; Negative Wheezes, Rales or Rhonchi
Cardiac: Regular Rhythm and S1/S2
GI: soft, nontender, bowel sounds present, wound vac in place
Musculoskeletal: No Clubbing, No Cyanosis and No Edema
Neuro: Awake, Alert and Oriented
Psych: Calm
A/P:
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
Transfer from [place] on 05/01/2024
X-ray of the abdomen and clinical picture is consistent with ileus
Continue IV fluids
TPN completed, diet gradually advanced to Low residue as per CRS, tolerating
NG tube discontinued 05/06
Colorectal and general surgery surgery consult and follow-up appreciated
Continue local wound care
PT OT eval appreciated Home services
Status post left CRISTINA drain removed by surgery on 05/12
Colorectal surgery and ID cleared her for discharge-please see below
Patient and family decided on rehab-awaiting for shelter case manager for discharge disposition
Persistent leukocytosis, likely related to infected wound, rule out secondary peritonitis:
Pseudomonas and yeast in wound culture
IV Zosyn & micafungin switched to ciprofloxacin and metronidazole 05/03-05/16 and fluconazole 05/04-05/17 as per ID
ID consult appreciated, metronidazole switched to IV while inpt d/t GI upset
CT appreciated small loculated effusions perisplenic and perihepatic too small for drainage per ID discussion with IR
Paroxysmal atrial fibrillation:
Continue cardiac monitoring
Echo reviewed and EF 70 to 75% and no significant valve disease
Cardiology consult appreciated IV amio lopressor converted to oral amio and metoprolol XL
cleared to resume Eliquis as per CRS, Eliquis started 05/10/24 tolerating
Delirium resolved
Anemia:
Bloody Bowel Movement noted overnight 05/08
H&H stable
Continue to monitor hemoglobin
Diabetes mellitus type 2:
On insulin sliding scale
Updated hemoglobin A1c 6.5
Hypothyroidism:
Home synthroid resumed
reported hx Hyperlipidemia, resolved
-updated lipid panel noted wnl
GERD:
On Protonix 40 mg IV twice a day and IV Pepcid daily, switched to PO Protonix 40 mg BID
Anxiety:
prn oral alprazolam, discontinued IV Ativan as needed (has not required)
Stage 1 sacral pressure injury, POA
cont local wound care
DVT prophylaxis: Eliquis
CODE STATUS:
Full code
Anticipated Discharge: Within 24 hours
Subjective/Interval History
-
Date of Service: May 13, 2024
Patient denies any worsening abdominal pain nausea vomiting today. Afebrile
Objective Data
-
Labs:
Laboratory Results
05/13/24
06:00
WBC 10.1
Hgb 8.5 L
Hct 25.2 L
Plt Count 465 H
Sodium 136
Potassium 3.5
Chloride 104
Carbon Dioxide 22
BUN 12
Creatinine 0.8
Glucose 124 H
Calcium 8.1 L
Vital Signs:
Vital Signs
Temp Pulse Resp BP Pulse Ox
97.6 F 63 14 126/59 98
05/13/24 07:35 05/13/24 08:05 05/13/24 07:51 05/13/24 08:05 05/13/24 07:51
I&O
05/12/24 05/13/24 05/14/24
06:59 06:59 06:59
Intake Total 1680 / 1680 1150 / 1150
Output Total 33 / 33 15
Balance 1647 / 1647 1135 / 1135
--- NOTE | 2024-05-13 09:38 | W.PN.ID1 ---
Date of Service
Date of Service: May 13, 2024
Today's Communication
- Continue ciprofloxacin and metronidazole 05/03-05/16
- Pt's complaint of metallic taste in the mouth improved off po metronidazole. Tolerating IV metronidazole.
- patient is going to SNF, would retain PICC through 05/16 for IV metronidazole there and remove after completion of the course
- script given to case specialist for IV metronidazole only
- continue fluconazole 05/04-05/17
- last qtc 477 - acceptable
- stable for dc from ID perspective
Assessment / Plan
Possible secondary peritonitis
Two small, nondrainable intraabdominal fluid collections - possibly abscesses
Leukocytosis - stable
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
S/p redo anastomosis 04/27 for necrotic anastomosis
Report of ADR (not allergy) with keflex, levofloxacin, bactrim - diarrhea, doxycycline - rash, and augmentin - unknown (tolerating zosyn)
DM2
- blood cultures x2 finalized negative
- culture from the drain - colonization of the drain vs possible early peritonitis - Pseudomonas and C albicans
- CT with two fluid small, un-drainable fluid collections 05/05/24
- Continue ciprofloxacin and metronidazole 05/03-05/16
- Pt's complaint of metallic taste in the mouth improved off po metronidazole. Tolerating IV metronidazole.
- patient is going to SNF, would retain PICC through 05/16 for IV metronidazole there and remove after completion of the course
- script given to case specialist for IV metronidazole only
- continue fluconazole 05/04-05/17
- last qtc 477 - acceptable
- stable for dc from ID perspective
Chief Complaint
-: Other (peritonitis)
Subjective / Review of Systems
afebrile
bp stable
reports loose not liquid stools about 3x per day
taking yougurt with each meal
screened for C diff one week ago - negative, symtpoms not consistent with C diff at this time
L drain removed
Vital Signs / Physical Exam
Vital Signs
Vital Signs
Temp Pulse Resp BP Pulse Ox
97.6 F 63 14 126/59 98
05/13/24 07:35 05/13/24 08:05 05/13/24 07:51 05/13/24 08:05 05/13/24 07:51
Physical Exam
Constitutional: No Acute Distress and Chronically Ill
Cardiovascular: Regular Rate and S1/S2; Negative Murmur or Rub
Pulmonary: Clear and Symmetric; Negative Wheezes or Rales
Gastrointestinal: Soft, Non Tender, Non Distended and Normal Bowel Sounds
Skin: Warm and Dry; Negative Rash or Jaundice
Lines: Other (right drain mix of serous fluid and fibrinous tissue)
Objective Data
Lab Data
Lab Results
05/13/24 06:00
05/13/24 06:00
Estimated Creat Clear 54 ml/min 05/13/24 06:00
Total Bilirubin 0.3 mg/dl (0.2-1.3) 05/07/24 04:25
AST 24 U/L (14-36) 05/07/24 04:25
ALT 16 U/L (0-35) 05/07/24 04:25
Alkaline Phosphatase 52 U/L (38-126) 05/07/24 04:25
Most recent labs reviewed.
Micro Results:
05/03/24 12:22 Blood Culture - Final
Blood/Venous No Growth - Final Report
05/07/24 11:04 C. difficile GDH Antigen & Toxins - Final
Feces/Stool Negative for toxigenic C.difficile
05/02/24 06:43 Blood Culture - Final
Blood/Venous No Growth - Final Report
05/02/24 09:53 Wound Culture - Final
Eliot Neal Pseudomonas aeruginosa
Vianey albicans
Gram Stain - Final
05/02/24 17:27 Urine Culture - Final
Urine NO GROWTH
05/02/24 06:57 MRSA Screen - Final
Nose No Methicillin Resistant Staphylococcus aureus isolated.
--- NOTE | 2024-05-13 11:05 | W.PN.CRS1 ---
Today's Communication / Plan
-
okay for d/c from our perspective
f/u with Dr. Cheung
continue wound vac
Assessment/Plan
-
83-year-old female with PMH of HTN, HLD, COPD, CKD stage III, MS, lung cancer s/p partial lung resection, colon cancer (recent open RHC on 04/22/2024, complicated by A-fib with RVR and anastomotic leak requiring takeback and revision of anastomosis
on 04/27, transferred to [place] per family request on 05/02); now with open midline wound and to CRISTINA drains bilaterally
-05/03 developed N/V requiring NG tube
-05/05 CT scan showing small perisplenic and perihepatic collections, no other acute findings
AFVSS
WBC 10.1 from 11.8, Hb 8.5 from 8.4
05/12- left CRISTINA drain removed
- Leukocytosis resolved
- Currently on Eliquis
� Cont low residue diet
� Continue vac therapy
� Continue pain control with Tylenol/Toradol
� Encourage OOB/IS; appreciate PT
� Appreciate hospitalist
- Okay for dispo from our perspective. Will need follow up with Dr. Cheung in 2 weeks. Continue wound vac.
Subjective Data
Subjective Data
Date of Service: May 13, 2024
Patient states she feels 'dizzy' when she stands. Otherwise, she is feeling well sitting currently. She has no nausea or vomiting. She has tolerated her diet without difficulty. She has bowel function.
Objective Data
-
Vital Signs
Temp Pulse Resp BP Pulse Ox
97.6 F 63 14 126/59 98
05/13/24 07:35 05/13/24 08:05 05/13/24 07:51 05/13/24 08:05 05/13/24 07:51
Intake & Output
05/12/24 05/13/24 05/14/24
06:59 06:59 06:59
Intake Total 1680 / 1680 1150 / 1150
Output Total
Balance 1647 / 1647 1135 / 1135
Intake:
Oral fluids 1440 / 1440 810 / 810
IV fluids (Total) 40 / 40 40 / 40
IV piggybacks 200 / 200 300 / 300
Output:
Drain Output (Total)
Left Abdomen Eliot-Neal
Right Abdomen Eliot-Abrams
Other:
Number of approximated MODERATE 2 2
amounts of urine
Number of approximated LARGE 1
amounts of urine
Number of unmeasured liquid
stools
Rectum 1
Lab Results
05/13/24 06:00
05/13/24 06:00
Physical Exam
-
General: No Acute Distress and AOx3
Abdomen: Soft, Non Distended, Non Tender and Other (right sided CRISTINA drain with serous/pus mixed output, midline wound vac in place)
Skin: Warm and Dry
[2024-05-13 12:16] LABS: Glucose - Point of Care 112 mg/dl (70-99)
[2024-05-13 15:10] VITALS: BP 121/98
--- NOTE | 2024-05-13 16:17 | CM ---
Reviewed the chart notes and spoke with the patient at the bedside. IMM reviewed. Additional information sent to [facility]. CM continues to be available to patient/family and is monitoring medical plan for needs at discharge.
Plan: Discharge to [facility] when bed available. Precert will be required.
--- NOTE | 2024-05-13 16:23 | WOUNDNOTE ---
WON RN NOTE: Patient waiting for bed availability at SNF. Home vac unit cancelled by Mathew Alejandro today. Asked nurse Theresa to place home vac unit back in case and supply bag placed at nursing station for pickup. Alex from here to roller picker soiled
Vac Ulta's, asked Alex to also roller picker patient's home vac. Flavia camarillo mailed and made aware.
[2024-05-13 16:53] LABS: Glucose - Point of Care 118 mg/dl (70-99)
[2024-05-13 21:21] LABS: Glucose - Point of Care 150 mg/dl (70-99)
[2024-05-13] MEDS: NOVOLOG FLEXPEN-MODERATE RESISTANCE 1 UNITS SC (21:31)
[2024-05-13 23:31] VITALS: BP 143/59
[2024-05-14] MEDS: FLAGYL 500 MG 100 IV ×2 (05:28→13:54)
[2024-05-14] MEDS: SYNTHROID 50 MCG PO (05:28)
[2024-05-14 05:36] VITALS: BMI 27.5
[2024-05-14 07:00] VITALS: BP 132/57
[2024-05-14 07:17] LABS: Glucose - Point of Care 133 mg/dl (70-99)
[2024-05-14] MEDS: NOVOLOG FLEXPEN-MODERATE RESISTANCE SC (07:35)
[2024-05-14] MEDS: ADVAIR HFA 115/21 MCG INHALER 2 PUFF INH (07:52)
--- NOTE | 2024-05-14 08:34 | W.PN.HOSP.TC ---
Today's Communication/Plan
-
Discharge planning today
Assessment / Plan
Assessment / Plan
Physical exam:
General: no acute distress, appears comfortable
HEENT: Normocephalic, Atraumatic and Moist Mucous Membranes
Respiratory: Clear to Auscultation; Negative Wheezes, Rales or Rhonchi
Cardiac: Regular Rhythm and S1/S2
GI: soft, nontender, bowel sounds present, wound vac in place
Musculoskeletal: No Clubbing, No Cyanosis and No Edema
Neuro: Awake, Alert and Oriented
Psych: Calm
A/P:
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
Transfer from [place] on 05/01/2024
X-ray of the abdomen and clinical picture is consistent with ileus
Continue IV fluids
TPN completed, diet gradually advanced to Low residue as per CRS, tolerating
NG tube discontinued 05/06
Colorectal and general surgery surgery consult and follow-up appreciated
Continue local wound care
PT OT eval appreciated Home services
Status post left CRISTINA drain removed by surgery on 05/12
Colorectal surgery and ID cleared her for discharge
We were waiting for rehab but patient decided against rehab and she wants to go home.
Discharge expected today
Persistent leukocytosis, likely related to infected wound, rule out secondary peritonitis:
Pseudomonas and yeast in wound culture
IV Zosyn & micafungin switched to ciprofloxacin and metronidazole 05/03-05/16 and fluconazole 05/04-05/17 as per ID
ID consult appreciated, metronidazole switched to IV while inpt d/t GI upset
CT appreciated small loculated effusions perisplenic and perihepatic too small for drainage per ID discussion with IR
Discussed with ID today and they are okay to switch to oral antibiotic and discontinue PICC line.
Paroxysmal atrial fibrillation:
Continue cardiac monitoring
Echo reviewed and EF 70 to 75% and no significant valve disease
Cardiology consult appreciated IV amio lopressor converted to oral amio and metoprolol XL
cleared to resume Eliquis as per CRS, Eliquis started 05/10/24 tolerating
Delirium resolved
Anemia:
Bloody Bowel Movement noted overnight 05/08
H&H stable
Continue to monitor hemoglobin
Diabetes mellitus type 2:
On insulin sliding scale
Updated hemoglobin A1c 6.5
Hypothyroidism:
Home synthroid resumed
reported hx Hyperlipidemia, resolved
-updated lipid panel noted wnl
GERD:
On Protonix 40 mg IV twice a day and IV Pepcid daily, switched to PO Protonix 40 mg BID
Anxiety:
prn oral alprazolam, discontinued IV Ativan as needed (has not required)
Stage 1 sacral pressure injury, POA
cont local wound care
DVT prophylaxis: Eliquis
CODE STATUS:
Full code
Anticipated Discharge: Today
Subjective/Interval History
-
Date of Service: May 14, 2024
Patient denies any abdominal pain nausea or vomiting. Afebrile
Objective Data
-
Vital Signs:
Vital Signs
Temp Pulse Resp BP Pulse Ox
97.6 F 65 14 132/57 98
05/14/24 07:00 05/14/24 07:55 05/14/24 07:55 05/14/24 07:00 05/14/24 07:55
I&O
05/13/24 05/14/24 05/15/24
06:59 06:59 06:59
Intake Total 1150 / 1150 1400 / 1400
Output Total
Balance 1135 / 1135 1390 / 1390
[2024-05-14] MEDS: PACERONE 200 MG PO (08:42)
[2024-05-14] MEDS: CIPRO 500 MG PO (08:44)
[2024-05-14] MEDS: PROTONIX 40 MG PO (08:44)
[2024-05-14] MEDS: DIFLUCAN 400 MG PO (08:44)
[2024-05-14] MEDS: ELIQUIS 5 MG PO (08:45)
[2024-05-14] MEDS: TOPROL XL 25 MG PO (08:45)
[2024-05-14] MEDS: DESENEX/MITRAZOL/ZEASORB 1 APPLIC TOPICAL (08:48)
[2024-05-14 09:35] VITALS: BP 141/70
--- NOTE | 2024-05-14 10:16 | W.PN.CRS1 ---
Today's Communication / Plan
-
Okay from discharge from our perspective
Continue wound VAC
Follow-up with Dr. Cheung in the office in a few weeks
Assessment/Plan
-
83-year-old female with PMH of HTN, HLD, COPD, CKD stage III, MS, lung cancer s/p partial lung resection, colon cancer (recent open RHC on 04/22/2024, complicated by A-fib with RVR and anastomotic leak requiring takeback and revision of anastomosis
on 04/27, transferred to [facility] per family request on 05/02); now with open midline wound and to CRISTINA drains bilaterally
-05/03 developed N/V requiring NG tube
-05/05 CT scan showing small perisplenic and perihepatic collections, no other acute findings
AFVSS
no labs
05/12- left CRISTINA drain removed
- Leukocytosis resolved
- Currently on Eliquis
� Cont low residue diet
� Continue vac therapy
� Continue pain control with Tylenol/Toradol
� Encourage OOB/IS; appreciate PT
� Appreciate hospitalist
- Okay for dispo from our perspective. Will need follow up with Dr. Cheung in 2 weeks. Continue wound vac.
Subjective Data
Subjective Data
Date of Service: May 14, 2024
Patient states that she feels well. She has no complaints. Her pain is controlled. She denies nausea or vomiting. She is tolerating diet. She has bowel function
Objective Data
-
Vital Signs
Temp Pulse Resp BP Pulse Ox
97.6 F 63 14 132/57 98
05/14/24 07:00 05/14/24 08:45 05/14/24 07:55 05/14/24 08:45 05/14/24 07:55
Intake & Output
05/13/24 05/14/24 05/15/24
06:59 06:59 06:59
Intake Total 1150 / 1150 1400 / 1400
Output Total
Balance 1135 / 1135 1390 / 1390
Intake:
Oral fluids 810 / 810 1200 / 1200
IV fluids (Total) 40 / 40
IV piggybacks 300 / 300 200 / 200
Output:
Drain Output (Total)
Right Abdomen Eliot-Neal
Other:
Number of approximated MODERATE 2 1
amounts of urine
Number of approximated LARGE 1
amounts of urine
Number of unmeasured liquid
stools
Rectum 1
Lab Results
05/13/24 06:00
05/13/24 06:00
Physical Exam
-
General: No Acute Distress and AOx3
Abdomen: Soft, Non Distended, Non Tender and Other (Wound VAC in place, right sided CRISTINA drain with serous mixed with pus output)
Skin: Warm and Dry
--- NOTE | 2024-05-14 10:24 | WOUNDNOTE ---
WON RN NOTE: Discussed with Brenda Patricia if Santyl warranted for base of wound yellow area, upon vac changes. Agreed with recommendation and Jennifer ordered. Called [facility] for small black spiral foam for next vac change this afternoon unless being
discharged to SNF, then saline WTD dressing. Home vac unit was picked up by Alex from last evening. Per CM note last evening patient waiting for bed at [facility].
--- NOTE | 2024-05-14 11:21 | W.PN.ID1 ---
Date of Service
Date of Service: May 14, 2024
Today's Communication
- now agreeable to oral metronidazole, remove PICC
- Continue ciprofloxacin and metronidazole 05/03-05/16
- continue fluconazole 05/04-05/17
- last qtc 477 - acceptable
- stable for dc from ID perspective
Assessment / Plan
Possible secondary peritonitis
Two small, nondrainable intraabdominal fluid collections - possibly abscesses
Leukocytosis - stable
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
S/p redo anastomosis 04/27 for necrotic anastomosis
Report of ADR (not allergy) with keflex, levofloxacin, bactrim - diarrhea, doxycycline - rash, and augmentin - unknown (tolerating zosyn)
DM2
- blood cultures x2 finalized negative
- culture from the drain - colonization of the drain vs possible early peritonitis - Pseudomonas and C albicans
- CT with two fluid small, un-drainable fluid collections 05/05/24
- now agreeable to oral metronidazole, remove PICC
- Continue ciprofloxacin and metronidazole 05/03-05/16
- continue fluconazole 05/04-05/17
- last qtc 477 - acceptable
- stable for dc from ID perspective
Chief Complaint
-: Other (peritonitis)
Subjective / Review of Systems
afebrile
bp stable
no events overnight
Vital Signs / Physical Exam
Vital Signs
Vital Signs
Temp Pulse Resp BP Pulse Ox
97.6 F 63 14 132/57 98
05/14/24 07:00 05/14/24 08:45 05/14/24 07:55 05/14/24 08:45 05/14/24 07:55
Physical Exam
Constitutional: No Acute Distress
Cardiovascular: Regular Rate and S1/S2; Negative Murmur or Rub
Pulmonary: Clear and Symmetric; Negative Wheezes or Rales
Gastrointestinal: Soft, Non Tender, Non Distended and Normal Bowel Sounds
Skin: Warm and Dry; Negative Rash or Jaundice
Wound: Other (small eschar around wound vac)
Objective Data
Lab Data
Lab Results
05/13/24 06:00
05/13/24 06:00
Estimated Creat Clear 54 ml/min 05/13/24 06:00
Total Bilirubin 0.3 mg/dl (0.2-1.3) 05/07/24 04:25
AST 24 U/L (14-36) 05/07/24 04:25
ALT 16 U/L (0-35) 05/07/24 04:25
Alkaline Phosphatase 52 U/L (38-126) 05/07/24 04:25
Most recent labs reviewed.
Micro Results:
05/03/24 12:22 Blood Culture - Final
Blood/Venous No Growth - Final Report
05/07/24 11:04 C. difficile GDH Antigen & Toxins - Final
Feces/Stool Negative for toxigenic C.difficile
05/02/24 06:43 Blood Culture - Final
Blood/Venous No Growth - Final Report
05/02/24 09:53 Wound Culture - Final
Eliot Neal Pseudomonas aeruginosa
Vianey albicans
Gram Stain - Final
05/02/24 17:27 Urine Culture - Final
Urine NO GROWTH
05/02/24 06:57 MRSA Screen - Final
Nose No Methicillin Resistant Staphylococcus aureus isolated.
Care Review
Plan reviewed with: Physician (Dr Mari hardy for oral metro)
--- NOTE | 2024-05-14 11:21 | W.DCSUMMARY ---
Discharge Summary
Discharge Data
Date of Admission: 05/01/24
Date of Discharge: 05/14/24
-
Pending Results: No
Hospital Course
Patient 83 years old female history of COPD, MVP, MS, CKD, diagnosed with colon cancer and admitted recently at [facility] after right hemicolectomy and primary anastomosis on 04/22 and postop course notable for somewhat a leak, delirium,
NICOLE, A-fib with RVR, and free air in the abdomen and taken for reopening of laparotomy and underwent resection of necrotic ileocolic anastomosis on 04/27 with creation of new ileocolic anastomosis. Patient and family requested transfer to due to
closer to home. Colorectal surgery consulted and ID. Cardiology also was consulted. Patient was given IV fluids, broad-spectrum IV antibiotics, and TPN. Patient had a slow recovery and her white blood cell count came back down to normal. She
remained afebrile. Her IV antibiotics were switched to oral. She has been on wound VAC. Cultures from drain which grew Pseudomonas aeruginosa and Vianey albicans and treated accordingly. Blood cultures no growth. Patient ultimately had
tolerated low residue diet and her bowels are functioning well. Colorectal surgery and ID have cleared her for discharge. She has been kept on antiarrhythmics and anticoagulation and has remained in normal sinus rhythm and will follow-up with
cardiology as outpatient. Otherwise, patient hemodynamically stable. She has been recommended to go to rehab due to significant deconditioning and multiple comorbidities but patient adamantly refused and she wants to go home. Home health agency
has been arranged by trimming caser. She will be discharged in stable condition today.
Discharge duration: 35 minutes
Discharge Plan
-
Patient Disposition: Home with Home Care
Discharge Diagnosis/Procedures: Secondary peritonitis. Colon cancer with recent colectomy and anastomotic leak requiring takeback and revision of anastomosis.
Diet: Low Residue
Activity: As tolerated
Blood Work: Please PCP to order CBC, BMP within 1 week
Activity Restrictions/Additional Instructions:
Wound Care Instructions
Midline Abdominal Wound- Santyl to yellow base of wound during wound vac changes. Thin strip of white foam to undermined area at 12 O clock and along L medial base edge over fascia. Black foam to remainder of wound
Change every 48 - 72 hours (i. e. Twrruxd-Epegcfmewp-Fyluchs) and prn if unable to obtain a seal. Low Intensity, Continuous at 125 mmHg. Upon discharge or transfer to another facility, remove VAC foam and apply NS moistened gauze dressing unless
home VAC unit available.
Miconazole powder to groin/inner thigh rash, affected areas twice a day.
Pressure redistributing chair cushion (i.e. Air chair cushion).
Follow up with colorectal surgeon.
If wound vac beeps do the following:
1. Call Visiting Nurse Agency and report that the machine is beeping. You may also call the 1800 on the wound vac machine to help with trouble shooting.
If the wound vac beeps for more than 2 hours then:
1. Turn off the machine
2. Remove clear dressing and the black and white foam.
3. Wet the gauze with saline and cover with ABD bandage and tape
Instructions: Low Fiber Diet, Eliot-Neal Drain, How to Keep Track of Your Drainage
Referrals:
Sea Cheung MD [Active] - in two weeks
Miguel Martínez MD [Family Provider] - in less than 1 week
Prescriptions:
New
amiodarone 200 mg Tablet
200 mg PO DAILY 30 Days Qty: 30 0RF
fluconazole 200 mg Tablet
400 mg PO DAILY 3 Days Qty: 6 0RF
ciprofloxacin HCl 500 mg Tablet
500 mg PO BID 3 Days Qty: 6 0RF
metoprolol succinate 25 mg Tablet Extended Release 24 Hr
25 mg PO DAILY 30 Days Qty: 30 0RF
Eliquis 5 mg Tablet
5 mg PO BID 30 Days Qty: 60 0RF
metronidazole 500 mg tablet
500 mg PO Q8H 3 Days Qty: 9 0RF
Continued
cetirizine [Zyrtec] 10 MG tablet
10 mg PO DAILY PRN (Reason: allergies) Qty: 0 0RF
Rx Instructions:
as needed
spironolactone 25 MG tablet
25 mg PO BID
levothyroxine 50 MCG tablet
50 mcg PO DAILY
Centrum Silver 1 EACH tablet
1 tab PO DAILY
cholecalciferol (vitamin D3) 2,000 UNIT tablet
2,000 units PO DAILY
Co Q-10 100 mg Softgel 200 MG
200 mg PO DAILY
esomeprazole magnesium [Nexium] 20 MG capsule,delayed release(DR/EC)
20 mg PO DAILY
magnesium oxide 250 MG tablet
400 mg PO DAILY
cyanocobalamin (vitamin B-12) 5,000 MCG tablet,disintegrating
5,000 mcg PO DAILY
Pravachol:
80 mg PO DAILY
alprazolam 0.5 MG tablet
0.5 mg PO HS PRN (Reason: sleep)
ascorbic acid (vitamin C) [Vitamin C] 500 MG tablet
500 mg PO DAILY
levalbuterol tartrate 45 mcg/actuation Hfa Aerosol Inhaler
2 inh INHALATION Q6H PRN (Reason: COPD)
fluticasone propion-salmeterol [Advair HFA] 115-21 mcg/actuation Hfa Aerosol Inhaler
2 puff INHALATION BID
Discontinued
propranolol [Inderal] 10 mg Tablet
10 mg PO BID
Discharge Orders:
Discharge Patient (As Directed); Ordered 05/14/24
Ordered By: Ramon Guerra
Discharge Date and Time
Discharge Date/Time: 05/14/24 16:20
Print Language: LITHUANIAN
[2024-05-14 11:34] LABS: Glucose - Point of Care 159 mg/dl (70-99)
--- NOTE | 2024-05-14 11:50 | CM ---
Reviewed the chart notes and spoke with the patient at the bedside. The patient now wants home with wound vac and DH VN services. Referral resent to [facility] V[facility]. TT to Jimena with wound care regarding need for home wound vac. Per patient, the attending
is switching the IV medication to oral. CM continues to be available to patient/family and is monitoring medical plan for needs at discharge.
Plan: Discharge to home with wound vac and [facility] VN services.
[2024-05-14] MEDS: NOVOLOG FLEXPEN-MODERATE RESISTANCE 1 UNITS SC (11:51)
[2024-05-14] MEDS: SANTYL OINTMENT 1 APPLIC TOPICAL (14:00)
[2024-05-14 15:03] VITALS: BP 135/65
--- NOTE | 2024-05-14 15:04 | WOUNDNOTE ---
[facility] RN NOTE: Met patient and in room for vac change and home vac application. All care completed with assistance of RN Dm. Midline abdominal wound dressing removed. Base of wound with thick, yellow slough and fat. Pictures of open
wound TT to both Dr. Cheung and NELLIE Gutierrez. Measurements are stable from prior assessment (see worklist). Dressing completed as ordered with Santyl, white foam in tunnel and base of wound, and black foam. All instructions for home wound vac use
reviewed with patient and . asked for repeated instruction on how to proceed if wound vac beeps. instructed to call VN first then pack wound with saline gauze (supplies given to and he put in suite case). The
instructions were also added to discharge instructions. Patient and also given small container of Santyl and some other supplies for VN. TONJA Wright given update.
--- NOTE | 2024-05-14 15:26 | VATNOTE ---
L DL PICC removed from pt before D/C with no issues. 48cm was intact and retrieved from pt. Line was sutured in place by 1 stitch. Stitch removed with no issues. Pressure dressing applied.
--- NOTE | 2024-05-15 08:30 | WOUNDNOTE ---
WOC RN note: Notified [employer] via [employer] re: patient's stop bill date for hospital rental vac ulta pump as of 05/14/24 and pump slat pickler (work order #[id number]).
== END 2024-05-14 16:20 | disposition home health service (06) | DRG 862 ==
LOC: 2 SOUTH 23:03
PROVIDERS: Internal Medicine; Physician Assistant; Radiology Diagnostic Radiology; Registered Nurse; ADMITTING PHYSICIAN Surgery; ATTENDING PHYSICIAN Hospitalist; CONSULT PHYSICIAN Internal Medicine; CONSULT PHYSICIAN Student in an Organized Health Care Education/Training Program; FAMILY PHYSICIAN Internal Medicine Geriatric Medicine
PROC: 3E0336Z Introduction of Nutritional Substance into Peripheral Vein, Percutaneous Approach (ICD-10-PCS; 2024-05-03)
PROC: 0D9670Z Drainage of Stomach with Drainage Device, Via Natural or Artificial Opening (ICD-10-PCS; 2024-05-05)
DX: T81.43XA Infection following a procedure, organ and space surgical site, initial encounter (principal); K65.9 Peritonitis, unspecified; C18.0 Malignant neoplasm of cecum; K91.89 Other postprocedural complications and disorders of digestive system; K56.7 Ileus, unspecified; F05 Delirium due to known physiological condition; N18.30 Chronic kidney disease, stage 3 unspecified; I12.9 Hypertensive chronic kidney disease with stage 1 through stage 4 chronic kidney disease, or unspecified chronic kidney disease; J44.9 Chronic obstructive pulmonary disease, unspecified; I34.1 Nonrheumatic mitral (valve) prolapse; G35 Multiple sclerosis; I48.0 Paroxysmal atrial fibrillation; I25.10 Atherosclerotic heart disease of native coronary artery without angina pectoris; D64.9 Anemia, unspecified; E78.5 Hyperlipidemia, unspecified; K21.9 Gastro-esophageal reflux disease without esophagitis; F41.9 Anxiety disorder, unspecified; B96.5 Pseudomonas (aeruginosa) (mallei) (pseudomallei) as the cause of diseases classified elsewhere; E78.00 Pure hypercholesterolemia, unspecified; L89.151 Pressure ulcer of sacral region, stage 1; D72.829 Elevated white blood cell count, unspecified; G47.33 Obstructive sleep apnea (adult) (pediatric); Y83.2 Surgical operation with anastomosis, bypass or graft as the cause of abnormal reaction of the patient, or of later complication, without mention of misadventure at the time of the procedure; Y92.239 Unspecified place in hospital as the place of occurrence of the external cause; R11.0 Nausea; E11.22 Type 2 diabetes mellitus with diabetic chronic kidney disease; E89.0 Postprocedural hypothyroidism; Z90.2 Acquired absence of lung [part of]; Z87.891 Personal history of nicotine dependence; Z88.1 Allergy status to other antibiotic agents; Z91.041 Radiographic dye allergy status; Z88.5 Allergy status to narcotic agent; Z88.2 Allergy status to sulfonamides; Z88.8 Allergy status to other drugs, medicaments and biological substances; Z91.048 Other nonmedicinal substance allergy status; Z79.890 Hormone replacement therapy; Z79.51 Long term (current) use of inhaled steroids; Z85.038 Personal history of other malignant neoplasm of large intestine; Z85.118 Personal history of other malignant neoplasm of bronchus and lung
CPT/HCPCS: 71045; 74018; 74177; 80048; 80053; 80061; 81003; 81015; 82248; 82962; 83036; 83690; 83735; 84100; 84134; 84478; 85014; 85018; 85025; 85027; 87040; 87070; 87077; 87086; 87106; 87186; 87205; 87324; 87449; 93005; 93306; 94640; 97110; 97116; 97163; 97166; 97530; 97535; J2997; Q9967

== ENCOUNTER → 2024-06-03 13:41 | Outpatient (REF) | payer OTHER, SELFPAY | LOC: RAD 13:41 | PROVIDERS: ATTENDING PHYSICIAN Internal Medicine Geriatric Medicine; OTHER PHYSICIAN Surgery | DX: R93.89 Abnormal findings on diagnostic imaging of other specified body structures (principal); R79.1 Abnormal coagulation profile | CPT/HCPCS: 93970 ==

== ENCOUNTER → 2024-10-13 13:58 | Outpatient (REF) | payer OTHER, SELFPAY | LOC: RAD 13:58 | PROVIDERS: ATTENDING PHYSICIAN Surgery; FAMILY PHYSICIAN Internal Medicine Geriatric Medicine | DX: R14.0 Abdominal distension (gaseous) (principal) | CPT/HCPCS: 74022 ==

== ENCOUNTER 2024-10-26 10:34 | Emergency (ER) | payer OTHER, SELFPAY ==
[2024-10-26 10:45] VITALS: BP 141/79
[2024-10-26 11:10] LABS: % Basophils 0.7 % (0-2); % Eosinophils 3.5 % (0-6); % Immature Granulocytes 0.2 % (0-0.5); % Lymphocytes 24.2 % (20.5-51.1); % Monocytes 8.9 % (1.7-9.3); % Neutrophils 62.5 % (42.2-75.2); Absolute Eosinophils 0.2 10^3/uL (0-0.7); Absolute Lymphocytes 1.3 10^3/uL (1.2-3.4); Absolute Monocytes 0.5 10^3/uL (0.1-0.6); Absolute Neutrophils 3.4 10^3/uL (1.4-6.5); Hematocrit 34.9 % (37.0-47.0); Hemoglobin 11.9 g/dL (12.0-16.0); Mean Corp Hgb Conc. 34.1 g/dL (33.0-37.0); Mean Corpuscular Volume 84.9 fL (81.0-99.0); Mean Platelet Volume 8.3 fL (7.4-10.4); Nucleated Red Blood Cells % 0 %; Platelet Count 271 10^3/uL (130-400); Red Blood Cell Count 4.11 10^6/uL (4.20-5.40); Red Cell Dist. Width 16.7 % (11.5-14.5); White Blood Cell Count 5.5 10^3/uL (4.8-10.8)
[2024-10-26 11:32] LABS: Troponin I < 0.012 ng/ml
[2024-10-26 11:38] LABS: ALT (SGPT) 30 U/L (0-35); AST (SGOT) 36 U/L (14-36); Albumin 4.4 g/dl (3.5-5.0); Alkaline Phosphatase 65 U/L (38-126); Blood Urea Nitrogen 22 mg/dl (7-17); Calcium 9.8 mg/dl (8.4-10.2); Carbon Dioxide 18 mmol/L (22-30); Chloride 107 mmol/L (98-107); Glucose 111 mg/dl (70-99); Potassium 4.4 mmol/L (3.5-5.1); Sodium 137 mmol/L (135-145); Total Bilirubin 1.2 mg/dl (0.2-1.3); eGFR 50.17
[2024-10-26 12:42] VITALS: BP 142/78
[2024-10-26 12:44] VITALS: BMI 25.2
[2024-10-26 13:00] VITALS: BP 147/82
--- NOTE | 2024-10-26 13:26 | ED.GENMED ---
History of Present Illness
General
Chief Complaint: Chest Pain
Source: patient
Exam Limitations: none
Time Seen by Provider: 10/26/24 12:50
History of Present Illness
History of Present Illness:
84-year-old female presents with onset of chest pain that started at 4 AM this morning. This woke her up from sleep. The pain is made worse with exertion and better with rest. She states that her left arm feels nonexistent. She denies pain in
the arm or numbness but it just feels different. She is on Eliquis for history of A-fib. No recent travel or surgery. The pain is not pleuritic. She is not short of breath. No other complaints at this time
Past History
Past History
ED Past Medical History: Asthma, Cancer, COPD, GERD, HTN, Hypercholesterolemia, Hypothyroidism, Other and Other
ED Past Surgical History: Appendectomy, Cholecystectomy and Gynecological
Social History
Tobacco: Former smoker
Alcohol: Occasional
Drug: None
Personal:
Living: with family
Employment: Retired
Family History
Family History: Other (Noncontributory)
Phy Exam
Physical Exam
Physical Exam:
General: Well-appearing female no acute respiratory distress
HEENT: Normocephalic atraumatic
Heart: Regular rate and rhythm
Lungs: Clear no wheeze
Extremities: No cyanosis or edema skin: Warm no rash
Scores
Heart Score for Chest Pain Patients
STEMI patient?: No
History: Slightly or Non-Suspicious
ECG: Normal
Age: >/= 65 years
Risk Factors: No Risk Factors
Troponin: </= Normal Limit
Heart Score for Chest Pain Patients: 2
Heart Score Risk: 2.5% MACE over next 6 weeks
Course
Orders/Labs/Results
Orders:
Orders
10/26/24 10:35
EKG [Electrocardiogram (*1)] Urgent
Reason for Study: Chest Pain
10/26/24 10:36
EKG- Treatment ONCE
10/26/24 11:02
Complete Blood Count/With Diff Urgent
Comprehensive Metabolic Panel Urgent
Troponin I Urgent
10/26/24 13:17
CR Chest - 2 Views Urgent
Comment:
Reason For Exam: chest pain
10/26/24 13:29
D-Dimer Urgent
Troponin I Urgent
Abnormal Lab Results
10/26/24 10/26/24
11:02 13:29
RBC 4.11 L 10^6/uL
(4.20-5.40)
Hgb 11.9 L g/dL
(12.0-16.0)
Hct 34.9 L %
(37.0-47.0)
RDW 16.7 H %
(11.5-14.5)
D-Dimer 0.75 H ug/mlFEU
(0.00-0.50)
Carbon Dioxide 18 L mmol/L
(22-30)
BUN 22 H mg/dl
(7-17)
Creatinine 1.1 H mg/dL
(0.6-1.0)
Glucose 111 H mg/dl
(70-99)
10/26/24 11:02
10/26/24 11:02
Vital Signs
Initial and Last Documented VS:
Initial Vital Signs
Temp Pulse Resp BP Pulse Ox
98.0 F 61 18 141/79 99
10/26/24 10:45 10/26/24 10:45 10/26/24 10:45 10/26/24 10:45 10/26/24 10:45
Last Documented Vital Signs
Temp Pulse Resp BP Pulse Ox
98.0 F 61 18 141/79 99
10/26/24 10:45 10/26/24 10:45 10/26/24 10:45 10/26/24 10:45 10/26/24 10:45
MDM/Problems Addressed
Differential Diagnosis Includes:
Chest pain. Consider ACS versus dissection. Unlikely to be PE secondary to anticoagulated state. Consider pneumothorax or pneumonia.
EKG shows sinus bradycardia. Initial troponin undetectable repeat troponin is pending. Given the chest pain and arm did recommend patient receive a CAT scan with and without contrast of the chest to evaluate for dissection. Patient states she has
stage III kidney disease and states that her digital operations analyst told her never receive IV dye again. Today her creatinine is 1.1 with a GFR of 50. Recommended IV fluids CAT scan however she declined. She is aware that we could be missing a dissection.
Nonetheless, I did order an x-ray of her chest and a D-dimer.
*Critical Care Note
Total Time (30-74mins, 75-104mins- exclusive of procedures): Not Applicable
Update Note
Update Note:
Age-adjusted D-dimer was within normal limits troponin undetectable. Patient expresses her desire to leave. Again we offered CT angio of the chest and recommended this however she declined. An x-ray was ordered of her chest but she did not want a
wait for it. I will advise follow-up with a health advocate.
ED Attending Note
-
Portions of this chart may have been created with voice recognition software.� Occasional wrong word or��sound alike� substitutions may have occurred due to the inherent limitations of voice recognition software.
Discharge Plan
Departure
Patient Disposition: Home (Routine Discharge)
Date of Disposition: 10/26/24
Time of Disposition: 14:45
Patient with high blood pressure during this ER visit?: No
Discharge Problem:
Chest pain
Instructions: Chest Pain CBC Follow Up
Prescriptions:
No Action
cetirizine [Zyrtec] 10 MG tablet
10 mg PO DAILY PRN (Reason: allergies) Qty: 0 0RF
Rx Instructions:
as needed
spironolactone 25 MG tablet
25 mg PO BID
levothyroxine 50 MCG tablet
50 mcg PO DAILY
Centrum Silver 1 EACH tablet
1 tab PO DAILY
cholecalciferol (vitamin D3) 2,000 UNIT tablet
2,000 units PO DAILY
Co Q-10 100 mg Softgel 200 MG
200 mg PO DAILY
esomeprazole magnesium [Nexium] 20 MG capsule,delayed release(DR/EC)
20 mg PO DAILY
magnesium oxide 250 MG tablet
400 mg PO DAILY
cyanocobalamin (vitamin B-12) 5,000 MCG tablet,disintegrating
5,000 mcg PO DAILY
Pravachol:
80 mg PO DAILY
alprazolam 0.5 MG tablet
0.5 mg PO HS PRN (Reason: sleep)
ascorbic acid (vitamin C) [Vitamin C] 500 MG tablet
500 mg PO DAILY
levalbuterol tartrate 45 mcg/actuation Hfa Aerosol Inhaler
2 inh INHALATION Q6H PRN (Reason: COPD)
fluticasone propion-salmeterol [Advair HFA] 115-21 mcg/actuation Hfa Aerosol Inhaler
2 puff INHALATION BID
amiodarone 200 mg Tablet
200 mg PO DAILY 30 Days Qty: 30 0RF
fluconazole 200 mg Tablet
400 mg PO DAILY 3 Days Qty: 6 0RF
ciprofloxacin HCl 500 mg Tablet
500 mg PO BID 3 Days Qty: 6 0RF
metoprolol succinate 25 mg Tablet Extended Release 24 Hr
25 mg PO DAILY 30 Days Qty: 30 0RF
Eliquis 5 mg Tablet
5 mg PO BID 30 Days Qty: 60 0RF
metronidazole 500 mg tablet
500 mg PO Q8H 3 Days Qty: 9 0RF
Referrals:
Miguel Martínez MD [Family Provider] -
Activity Restrictions/Additional Instructions:
Please return here for worsening symptoms otherwise follow-up with your health advocate
Interventions
Interventions:
*Risk Screen - Suicide Last Done: 10/26/24 10:45
*General Assessment Last Done: 10/26/24 10:45
*ED COVID-19 Vaccine History Last Done: 10/26/24 10:45
ED- Cardiac Assessment Last Done: 10/26/24 13:30
Discharge Date and Time
Print Language: GAMBIAN
[2024-10-26 13:48] LABS: D-Dimer 0.75 ug/mlFEU (0.00-0.50)
[2024-10-26 13:59] LABS: Troponin I < 0.012 ng/ml
[2024-10-26 14:00] VITALS: BP 148/73
[2024-10-26 14:27] VITALS: BP 143/89
== END 2024-10-26 14:58 | disposition home or self-care (01) ==
LOC: EMR 10:34
PROVIDERS: Emergency Medicine; Physician Assistant; EMERGENCY PHYSICIAN Emergency Medicine; FAMILY PHYSICIAN Internal Medicine Geriatric Medicine
DX: R07.9 Chest pain, unspecified (principal); I48.91 Unspecified atrial fibrillation; E03.9 Hypothyroidism, unspecified; E78.00 Pure hypercholesterolemia, unspecified; I10 Essential (primary) hypertension; Z79.01 Long term (current) use of anticoagulants; Z87.891 Personal history of nicotine dependence; Z90.49 Acquired absence of other specified parts of digestive tract
CPT/HCPCS: 99284; 80053; 84484; 85025; 85379; 93005

== ENCOUNTER → 2024-10-28 10:08 | Outpatient (REF) | payer OTHER, SELFPAY | LOC: HWRAD 10:08 | PROVIDERS: ATTENDING PHYSICIAN Surgery; FAMILY PHYSICIAN Internal Medicine Geriatric Medicine | DX: R14.0 Abdominal distension (gaseous) (principal) | CPT/HCPCS: 74176 ==

== ENCOUNTER → 2024-11-13 12:55 | Outpatient (REF) | payer OTHER, SELFPAY | LOC: WDC 12:55 | PROVIDERS: ATTENDING PHYSICIAN Internal Medicine Geriatric Medicine | DX: Z12.31 Encounter for screening mammogram for malignant neoplasm of breast (principal) | CPT/HCPCS: 77063; 77067 ==

== ENCOUNTER → 2024-11-14 07:49 | Outpatient (REF) | payer OTHER, SELFPAY | LOC: RCS 07:49 | PROVIDERS: ATTENDING PHYSICIAN Internal Medicine Cardiovascular Disease; FAMILY PHYSICIAN Internal Medicine Geriatric Medicine | DX: I48.0 Paroxysmal atrial fibrillation (principal) | CPT/HCPCS: 78452; 93017; A9500 ==

== ENCOUNTER → 2024-12-09 10:19 | Outpatient (REF) | payer OTHER, SELFPAY | LOC: HWRAD 10:19 | PROVIDERS: ATTENDING PHYSICIAN Thoracic Surgery (Cardiothoracic Vascular Surgery); FAMILY PHYSICIAN Internal Medicine Geriatric Medicine | DX: C34.31 Malignant neoplasm of lower lobe, right bronchus or lung (principal) | CPT/HCPCS: 71250 ==

== ENCOUNTER → 2025-01-31 09:37 | Outpatient (REF) | payer OTHER, SELFPAY | LOC: PAVMRI 09:37 | PROVIDERS: ATTENDING PHYSICIAN Nurse Practitioner Primary Care; FAMILY PHYSICIAN Internal Medicine Geriatric Medicine | DX: R51.9 Headache, unspecified (principal); G35 Multiple sclerosis; C34.81 Malignant neoplasm of overlapping sites of right bronchus and lung; C18.9 Malignant neoplasm of colon, unspecified; D32.0 Benign neoplasm of cerebral meninges; M48.02 Spinal stenosis, cervical region; M54.2 Cervicalgia | CPT/HCPCS: 70551; 72141 ==

== ENCOUNTER 2025-02-14 11:46 | Emergency (ER) | payer OTHER, SELFPAY ==
[2025-02-14 11:51] VITALS: BP 168/95
[2025-02-14 12:15] LABS: Hematocrit 35.4 % (37.0-47.0); Hemoglobin 12.2 g/dL (12.0-16.0); Mean Corp Hgb Conc. 34.5 g/dL (33.0-37.0); Mean Corpuscular Volume 91.7 fL (81.0-99.0); Nucleated Red Blood Cells % 0 %; Platelet Count 256 10^3/uL (130-400); Red Cell Dist. Width 13.1 % (11.5-14.5)
[2025-02-14 12:34] LABS: ALT (SGPT) 34 U/L (0-35); AST (SGOT) 38 U/L (14-36); Albumin 5.2 g/dl (3.5-5.0); Alkaline Phosphatase 56 U/L (38-126); Blood Urea Nitrogen 31 mg/dl (7-17); Calcium 10.4 mg/dl (8.4-10.2); Carbon Dioxide 21 mmol/L (22-30); Chloride 103 mmol/L (98-107); Glucose 108 mg/dl (70-99); Potassium 4.8 mmol/L (3.5-5.1); Sodium 135 mmol/L (135-145); Total Protein 7.9 g/dl (6.3-8.2); eGFR 45.19
[2025-02-14 12:46] LABS: Troponin I < 0.012 ng/ml
[2025-02-14 14:04] VITALS: BP 123/64
[2025-02-14 14:57] VITALS: BP 137/88
[2025-02-14 15:00] VITALS: BP 135/71
[2025-02-14 16:00] VITALS: BP 122/64
--- NOTE | 2025-02-14 16:00 | ED.GENMED ---
History of Present Illness
General
Chief Complaint: Chest Pain
Source: patient and spouse
Exam Limitations: none
Time Seen by Provider: 02/14/25 15:06
Nursing documentation reviewed up to this point in time: agreed with
History of Present Illness
History of Present Illness:
Note:
CHIEF COMPLAINT(S)
- Substernal chest pain.
HISTORY OF PRESENT ILLNESS
The patient is an 84-year-old female who presents to the emergency department with complaints of chest pain described as being located in the middle chest area. The onset of these symptoms occurred during the night, and the pain was severe enough to
wake her from sleep. Additionally, the patient noted that this symptom has been present intermittently for a couple of days. She attributed the issue to a change in medication prescribed by a physician covering for her regular doctor. The new
medication in question is bisoprolol. The patient reported experiencing paresthesia in her hands and feet since starting the medication in the last few days. At the time of the examination, the chest pain had subsided, and she reported feeling
better after lying down. She denied any exacerbation of pain with deep inspiration.
MEDICATIONS
The patient is currently taking bisoprolol and spironolactone.
PHYSICAL EXAM
General: Alert, no acute distress.
Skin: Warm, dry.
Head: Normocephalic, atraumatic.
Neck: Supple, trachea midline.
Eye Ears, nose, mouth and throat: Oral mucosa moist.
Cardiovascular: Heart sounds normal, slightly bradycardic; normal peripheral perfusion, no edema.
Respiratory: Respirations are non-labored, clear lung sounds bilaterally.
Gastrointestinal: Abdomen nondistended.
Back: Normal range of motion, Normal alignment.
Musculoskeletal: Normal ROM, normal strength.
Neurological: Alert and oriented to person, place, time, and situation, No focal neurological deficit observed.
Psychiatric: Cooperative, appropriate mood & affect.
PLAN
Review laboratory results thoroughly and assess the effect of bisoprolol on heart rate and symptoms. Continue to monitor vital signs and symptom resolution. Discuss with the patient regarding any potential medication adjustment if side effects from
bisoprolol persist.
DIFFERENTIAL DIAGNOSIS
The Differential Diagnosis includes, in no particular order and is not limited to:
1. Angina pectoris
2. Gastroesophageal reflux disease
3. Medication side effect (bisoprolol)
4. Anxiety or panic disorder
5. Musculoskeletal chest pain
6. Esophagitis
7. Pericarditis
8. Pulmonary embolism
9. Aortic dissection
10. Myocardial infarction
CARE-UPDATE
02/14/25 - 16:04
Patients chest x-ray and EKG are normal with no signs of ischemia. The patient is stable for discharge. Symptoms have been persistent for several days, but ACS and PE are not suspected. Recommend follow-up with cardiology, specifically with
Jenna.
EKG
My independent EKG interpretation is:
- Rhythm: Sinus
- Heart Rate: 55 bpm
- Melvin: Normal
- VA Interval: Normal
- No changes noted from previous EKG
Disposition:
SUMMARY OF ENCOUNTER
Patient, an 84-year-old female, presented to the emergency department with substernal chest pain. The pain was severe, waking her from sleep, and had persisted intermittently for days. Pain resolved upon evaluation. Associated symptoms included
paresthesia in hands and feet after starting bisoprolol. Vitals stable and no exacerbation with deep inspiration. Chest X-ray and EKG showed no ischemia. Discussed suspicion of medication side effect as a potential cause.
DISPOSITION
Discharge
ASSESSMENT
Substernal chest pain, likely from medication side effect (bisoprolol), with resolved symptoms. ACS and PE are doubted.
PLAN
Monitor vital signs and symptoms. Consider adjusting current medication if side effects from bisoprolol persist.
INDEPENDENT REVIEW OF LABS AND INTERPRETATION OF TESTS
- My independent EKG interpretation is: Rhythm: Sinus, Heart Rate: 55 bpm, Melvin: Normal, VA Interval: Normal, No changes noted from previous EKG.
FOLLOW-UP INSTRUCTIONS
Follow up with primary care and cardiology, specifically Dr. Gonzalez. Return precautions were given.
MEDICAL DECISION MAKING
-Complexity of Data Reviewed: Chronic conditions affecting care. Differential diagnoses include: Angina pectoris, Gastroesophageal reflux disease, Medication side effect (bisoprolol), Anxiety or panic disorder, Musculoskeletal chest pain,
Esophagitis, Pericarditis, Pulmonary embolism, Aortic dissection, Myocardial infarction.
-Data:
Category 1: Non-emergency department records reviewed.
Category 2: My independent interpretation of EKG.
-Risk: Consideration of Admission/Observation: Escalation of care including admission/observation was considered given the complexity and risk of the patients presenting complaint, exam findings, and/or their underlying comorbidities. However,
ultimately I feel the patient is safe for outpatient management with close follow-up. Reasoning: Work-up reassuring, does not reveal any acute life/organ threatening processes, patients symptoms well-controlled upon reevaluation, reexamination is
reassuring, vitals are stable, patient agreeable with discharge, reliable for follow-up.
DIAGNOSIS
chest pain
Past History
Past History
ED Past Medical History: Asthma, Cancer, COPD, GERD, HTN, Hypercholesterolemia, Hypothyroidism, Other and Other
ED Past Surgical History: Appendectomy, Cholecystectomy and Gynecological
Social History
Tobacco: Former smoker
Alcohol: Occasional
Drug: None
Personal:
Living: with family
Employment: Retired
Family History
Family History: Other (Noncontributory)
Phy Exam
Physical Exam
Physical Exam:
.
Scores
Heart Score for Chest Pain Patients
STEMI patient?: No
History: Slightly or Non-Suspicious
ECG: Normal
Age: >/= 65 years
Risk Factors: 1 or 2 Risk Factors
Troponin: </= Normal Limit
Heart Score for Chest Pain Patients: 3
Heart Score Risk: 2.5% MACE over next 6 weeks
Course
Orders/Labs/Results
Orders:
Orders
02/14/25 11:49
Electrocardiogram (*1) Urgent
Reason for Study: Chest Pain
EKG- Treatment ONCE
02/14/25 11:51
Chest [CR Chest - 2 Views ] Urgent
Comment:
Reason For Exam: chest pain
02/14/25 12:00
Complete Blood Count/With Diff Urgent
Comprehensive Metabolic Panel Urgent
Troponin I Urgent
Abnormal Lab Results
02/14/25
12:00
RBC 3.86 L 10^6/uL
(4.20-5.40)
Hct 35.4 L %
(37.0-47.0)
MCH 31.6 H pg
(27.0-31.0)
Carbon Dioxide 21 L mmol/L
(22-30)
BUN 31 H mg/dl
(7-17)
Creatinine 1.2 H mg/dL
(0.6-1.0)
Glucose 108 H mg/dl
(70-99)
Calcium 10.4 H mg/dl
(8.4-10.2)
Total Bilirubin 1.9 H mg/dl
(0.2-1.3)
AST 38 H U/L
(14-36)
Albumin 5.2 H g/dl
(3.5-5.0)
02/14/25 12:00
02/14/25 12:00
Vital Signs
Initial and Last Documented VS:
Initial Vital Signs
Temp Pulse Resp BP Pulse Ox
98.4 F 77 18 168/95 97
02/14/25 11:51 02/14/25 11:51 02/14/25 11:51 02/14/25 11:51 02/14/25 11:51
Last Documented Vital Signs
Temp Pulse Resp BP Pulse Ox
98.4 F 63 18 123/64 95
02/14/25 11:51 02/14/25 14:04 02/14/25 14:04 02/14/25 14:04 02/14/25 16:02
*Pulse Oximetry
SaO2: 95
Oxygen Mode of Delivery: Room air
Patient hypoxic: no
*Critical Care Note
Total Time (30-74mins, 75-104mins- exclusive of procedures): Not Applicable
ED Attending Note
-
Portions of this chart may have been created with voice recognition software.� Occasional wrong word or��sound alike� substitutions may have occurred due to the inherent limitations of voice recognition software.
Discharge Plan
Departure
Patient Disposition: Home (Routine Discharge)
Date of Disposition: 02/14/25
Time of Disposition: 16:23
Patient with high blood pressure during this ER visit?: Yes
Condition: Good
Discharge Problem:
Chest pain
Instructions: Chest Pain CBC Follow Up, BLOOD PRESSURE
Prescriptions:
No Action
cetirizine [Zyrtec] 10 MG tablet
10 mg PO DAILY PRN (Reason: allergies) Qty: 0 0RF
Rx Instructions:
as needed
spironolactone 25 MG tablet
25 mg PO BID
levothyroxine 50 MCG tablet
50 mcg PO DAILY
Centrum Silver 1 EACH tablet
1 tab PO DAILY
cholecalciferol (vitamin D3) 2,000 UNIT tablet
2,000 units PO DAILY
Co Q-10 100 mg Softgel 200 MG
200 mg PO DAILY
esomeprazole magnesium [Nexium] 20 MG capsule,delayed release(DR/EC)
20 mg PO DAILY
magnesium oxide 250 MG tablet
400 mg PO DAILY
cyanocobalamin (vitamin B-12) 5,000 MCG tablet,disintegrating
5,000 mcg PO DAILY
Pravachol:
80 mg PO DAILY
alprazolam 0.5 MG tablet
0.5 mg PO HS PRN (Reason: sleep)
ascorbic acid (vitamin C) [Vitamin C] 500 MG tablet
500 mg PO DAILY
levalbuterol tartrate 45 mcg/actuation Hfa Aerosol Inhaler
2 inh INHALATION Q6H PRN (Reason: COPD)
fluticasone propion-salmeterol [Advair HFA] 115-21 mcg/actuation Hfa Aerosol Inhaler
2 puff INHALATION BID
amiodarone 200 mg Tablet
200 mg PO DAILY 30 Days Qty: 30 0RF
fluconazole 200 mg Tablet
400 mg PO DAILY 3 Days Qty: 6 0RF
ciprofloxacin HCl 500 mg Tablet
500 mg PO BID 3 Days Qty: 6 0RF
metoprolol succinate 25 mg Tablet Extended Release 24 Hr
25 mg PO DAILY 30 Days Qty: 30 0RF
Eliquis 5 mg Tablet
5 mg PO BID 30 Days Qty: 60 0RF
metronidazole 500 mg tablet
500 mg PO Q8H 3 Days Qty: 9 0RF
Referrals:
Miguel Martínez MD [Family Provider, Internal Medicine]
Interventions
Interventions:
*Risk Screen - Suicide Last Done: 02/14/25 11:51
*General Assessment Last Done: 02/14/25 11:51
*Neglect/Abuse Screening Last Done: 02/14/25 11:51
Discharge Date and Time
Print Language: [id number]
== END 2025-02-14 17:49 | disposition home or self-care (01) ==
LOC: EMR 11:46
PROVIDERS: Emergency Medicine; EMERGENCY PHYSICIAN Emergency Medicine; FAMILY PHYSICIAN Internal Medicine Geriatric Medicine
DX: R07.89 Other chest pain (principal); R20.2 Paresthesia of skin; J45.909 Unspecified asthma, uncomplicated; J44.9 Chronic obstructive pulmonary disease, unspecified; K21.9 Gastro-esophageal reflux disease without esophagitis; I10 Essential (primary) hypertension; E78.00 Pure hypercholesterolemia, unspecified; E03.9 Hypothyroidism, unspecified; Z79.899 Other long term (current) drug therapy; Z87.891 Personal history of nicotine dependence; Z90.49 Acquired absence of other specified parts of digestive tract
CPT/HCPCS: 99283; 71046; 80053; 84484; 85025; 93005

== ENCOUNTER → 2025-03-16 08:58 | Outpatient (REF) | payer OTHER, SELFPAY | LOC: RCS 08:58 | PROVIDERS: ATTENDING PHYSICIAN Internal Medicine; FAMILY PHYSICIAN Internal Medicine Geriatric Medicine | DX: R00.2 Palpitations (principal) | CPT/HCPCS: 93225; 93226 ==

== ENCOUNTER 2025-04-09 12:27 | Emergency (ER) | payer OTHER, SELFPAY ==
[2025-04-09 12:33] VITALS: BP 139/80
--- NOTE | 2025-04-09 13:34 | ED.GENMED ---
History of Present Illness
General
Chief Complaint: Fall
Source: patient
Exam Limitations: none
Time Seen by Provider: 04/09/25 13:16
Nursing documentation reviewed up to this point in time: agreed with
History of Present Illness
History of Present Illness:
Patient presents to ED secondary to right forearm laceration, which occurred, when she fell backwards after losing balance. Patient denies head injury. Patient does have mild neck pain from the fall. Denies loss of sensation or weakness. Denies
blurred vision. Denies dizziness. Denies difficulty with ambulation. Patient does take Eliquis daily. Patient's last vaccination was in 2020.
Past History
Past History
ED Past Medical History: Asthma, Cancer, COPD, GERD, HTN, Hypercholesterolemia, Hypothyroidism, Other and Other
ED Past Surgical History: Appendectomy, Cholecystectomy and Gynecological
Social History
Tobacco: Former smoker
Alcohol: Occasional
Drug: None
Personal:
Living: with family
Employment: Retired
Family History
Family History: Other (Noncontributory)
Review of Systems
Review of Systems
Allergies reviewed?: Yes
All Other Systems: ROS reviewed and negative except as documented in HPI and ROS
Constitutional: Reports no symptoms
Cardiac: Reports no symptoms; Denies syncope
ABD/GI: Reports no symptoms; Denies nausea or vomiting
Musculoskeletal: Reports neck pain; Denies back pain
Skin: Reports no symptoms
Neurological: Reports no symptoms; Denies dizzy, headache, weakness or numbness
Phy Exam
Physical Exam
Physical Exam:
Physical Exam
General: no apparent distress, not acutely ill. afebrile
Head: nc/at. eomi
Neck: supple. no midline tenderness. normal range of motion
Neuro: alert and oriented x 3. no focal neurological deficits
Skin: an approx 6cm c-shaped, superficial skin tear noted over lateral aspect of right midforearm without active bleeding
Psychiatric: well kept. interactive and cooperative
Extremities: no edema. no calf tenderness.
Course
Orders/Labs/Results
Orders:
Orders
04/09/25 13:50
Acetaminophen [Tylenol] 650 mg PO NOW STA
Vital Signs
Initial and Last Documented VS:
Initial Vital Signs
Temp Pulse Resp BP Pulse Ox
98 F 58 16 139/80 98
04/09/25 12:33 04/09/25 12:33 04/09/25 12:33 04/09/25 12:33 04/09/25 12:33
Last Documented Vital Signs
Temp Pulse Resp BP Pulse Ox
98 F 58 16 139/80 98
04/09/25 12:33 04/09/25 12:33 04/09/25 12:33 04/09/25 12:33 04/09/25 13:38
MDM/Problems Addressed
MDM/Problems Addressed:
Superficial skin tear noted, not suitable for suture repair, as it will cause more tear due to the thin nature of her skin. As such, decision made to provide wound cleansing and apply Steri-Strip for approximation. Advised keeping the area clean
and following up with PCP for reevaluation next week.
Patient left ED prior to receiving forearm x-ray, as she did not wish to wait and informed nursing staff prior to leaving.
*Pulse Oximetry
SaO2: 98
Oxygen Mode of Delivery: Room air
Patient hypoxic: no
*Critical Care Note
Total Time (30-74mins, 75-104mins- exclusive of procedures): Not Applicable
ED Attending Note
-
Portions of this chart may have been created with voice recognition software.� Occasional wrong word or��sound alike� substitutions may have occurred due to the inherent limitations of voice recognition software.
Discharge Plan
Departure
Patient Disposition: Home (Routine Discharge)
Date of Disposition: 04/09/25
Time of Disposition: 14:37
Patient with high blood pressure during this ER visit?: Yes
Condition: Good
Discharge Problem:
Skin tear
Instructions: Wound Care (DC), Skin Abrasions (DC)
Prescriptions:
No Action
cetirizine [Zyrtec] 10 MG tablet
10 mg PO DAILY PRN (Reason: allergies) Qty: 0 0RF
Rx Instructions:
as needed
spironolactone 25 MG tablet
25 mg PO BID
levothyroxine 50 MCG tablet
50 mcg PO DAILY
Centrum Silver 1 EACH tablet
1 tab PO DAILY
cholecalciferol (vitamin D3) 2,000 UNIT tablet
2,000 units PO DAILY
Co Q-10 100 mg Softgel 200 MG
200 mg PO DAILY
esomeprazole magnesium [Nexium] 20 MG capsule,delayed release(DR/EC)
20 mg PO DAILY
magnesium oxide 250 MG tablet
400 mg PO DAILY
cyanocobalamin (vitamin B-12) 5,000 MCG tablet,disintegrating
5,000 mcg PO DAILY
Pravachol:
80 mg PO DAILY
alprazolam 0.5 MG tablet
0.5 mg PO HS PRN (Reason: sleep)
ascorbic acid (vitamin C) [Vitamin C] 500 MG tablet
500 mg PO DAILY
levalbuterol tartrate 45 mcg/actuation Hfa Aerosol Inhaler
2 inh INHALATION Q6H PRN (Reason: COPD)
fluticasone propion-salmeterol [Advair HFA] 115-21 mcg/actuation Hfa Aerosol Inhaler
2 puff INHALATION BID
amiodarone 200 mg Tablet
200 mg PO DAILY 30 Days Qty: 30 0RF
fluconazole 200 mg Tablet
400 mg PO DAILY 3 Days Qty: 6 0RF
ciprofloxacin HCl 500 mg Tablet
500 mg PO BID 3 Days Qty: 6 0RF
metoprolol succinate 25 mg Tablet Extended Release 24 Hr
25 mg PO DAILY 30 Days Qty: 30 0RF
Eliquis 5 mg Tablet
5 mg PO BID 30 Days Qty: 60 0RF
metronidazole 500 mg tablet
500 mg PO Q8H 3 Days Qty: 9 0RF
Referrals:
Moe Mccall I., DO [Family Provider, Internal Medicine]
Activity Restrictions/Additional Instructions:
As discussed, please follow-up with your primary care physician for reevaluation next week.
Interventions
Interventions:
*Risk Screen - Suicide Last Done: 04/09/25 12:37
*General Assessment Last Done: 04/09/25 13:40
*Neglect/Abuse Screening Last Done: 04/09/25 12:37
*ED- Fall Risk Assessment Last Done: 04/09/25 12:37
*ED COVID-19 Vaccine History Last Done: 04/09/25 13:40
*ED Influenza Vaccine History Last Done: 04/09/25 13:40
*Nursing Disposition Last Done: 04/09/25 14:38
ED-Musculoskeletal Assessment Last Done: 04/09/25 13:40
ED- Neurological Assessment Last Done: 04/09/25 13:40
ED-Skin Assessment Last Done: 04/09/25 13:40
Discharge Date and Time
Discharge Date/Time: 04/09/25 14:40
Print Language: AUSTRIAN
[2025-04-09] MEDS: TYLENOL 650 MG PO (13:53)
== END 2025-04-09 14:40 | disposition home or self-care (01) ==
LOC: EMR 12:27
PROVIDERS: EMERGENCY PHYSICIAN Emergency Medicine; FAMILY PHYSICIAN Internal Medicine
DX: S51.811A Laceration without foreign body of right forearm, initial encounter (principal); W18.39XA Other fall on same level, initial encounter; I10 Essential (primary) hypertension; E78.00 Pure hypercholesterolemia, unspecified; J44.89 Other specified chronic obstructive pulmonary disease; E03.9 Hypothyroidism, unspecified; K21.9 Gastro-esophageal reflux disease without esophagitis; Z79.01 Long term (current) use of anticoagulants; Z87.891 Personal history of nicotine dependence
CPT/HCPCS: 99283

== ENCOUNTER 2025-04-10 17:41 | Emergency (ER) | payer OTHER, SELFPAY ==
[2025-04-10 17:48] VITALS: BP 141/73
--- NOTE | 2025-04-10 20:34 | ED.SKININJ ---
HPI-Injury
General
Chief Complaint: Skin Surface Trauma
Source: patient
Exam Limitations: none
Time Seen by Provider: 04/10/25 20:12
History of Present Illness-Injury
Initial Injury comments:
84-year-old female presents for evaluation of right forearm skin tear. She is on Eliquis. She tripped yesterday and fell injuring her right arm she also notes bruising to the lower back. She did not hit her head. She was here yesterday and was
evaluated but did not want a wait for x-rays and she left. She notes continued bleeding from the wound on her arm. No other complaints at this time
Past History
Past History
ED Past Medical History: Asthma, Cancer, COPD, GERD, HTN, Hypercholesterolemia, Hypothyroidism, Other and Other
ED Past Surgical History: Appendectomy, Cholecystectomy and Gynecological
Social History
Tobacco: Former smoker
Alcohol: Occasional
Drug: None
Personal:
Living: with family
Employment: Retired
Family History
Family History: Other (Noncontributory)
Phy Exam
Physical Exam
Physical Exam:
General: Well-appearing female no acute respiratory distress
HEENT normal cephalic atraumatic
Skin: Skin tear is noted to the right elbow and forearm superficial nature without current bleeding
Musculoskeletal exam: Mild diffuse tenderness about the lumbar spine and right elbow and forearm
Neurologic exam: Alert and oriented conversing appropriately good sensation and strength to the extremities
Course
Orders/Labs/Results
Orders:
Orders
04/10/25 17:55
Forearm, Right 2 View [CR Forearm - Right 2 View] Urgent
Comment:
Reason For Exam: fall
04/10/25 20:33
CR Lumbar Spine 2 Or 3 Views Urgent
Comment:
Reason For Exam: fall, pain
Vital Signs
Initial and Last Documented VS:
Initial Vital Signs
Temp Pulse Resp BP Pulse Ox
97.5 F 67 18 141/73 99
04/10/25 17:48 04/10/25 17:48 04/10/25 17:48 04/10/25 17:48 04/10/25 17:48
Last Documented Vital Signs
Temp Pulse Resp BP Pulse Ox
97.5 F 67 18 141/73 99
04/10/25 17:48 04/10/25 17:48 04/10/25 17:48 04/10/25 17:48 04/10/25 20:36
MDM/Problems Addressed
Differential Diagnosis Includes:
Fall with skin tear to the right arm and continued back pain. Was here yesterday but did not want to wait for x-rays. X-rays of the forearm and lower back are ordered. There was no head strike and no signs of head trauma here. Will hold off on
ordering head CT
The dressing on the right forearm was taken down and will be replaced
*Pulse Oximetry
SaO2: 99
Oxygen Mode of Delivery: Room air
Patient hypoxic: no
*Critical Care Note
Total Time (30-74mins, 75-104mins- exclusive of procedures): Not Applicable
Update Note
Update Note:
X-rays right forearm and lumbar spine negative for acute finding. The skin tear was rewrapped. Patient reassured. Stable for discharge
ED Attending Note
-
Portions of this chart may have been created with voice recognition software.� Occasional wrong word or��sound alike� substitutions may have occurred due to the inherent limitations of voice recognition software.
Discharge Plan
Departure
Patient Disposition: Home (Routine Discharge)
Date of Disposition: 04/10/25
Time of Disposition: 21:51
Patient with high blood pressure during this ER visit?: No
Discharge Problem:
Skin tear
Instructions: Wound Care (DC)
Prescriptions:
No Action
cetirizine [Zyrtec] 10 MG tablet
10 mg PO DAILY PRN (Reason: allergies) Qty: 0 0RF
Rx Instructions:
as needed
spironolactone 25 MG tablet
25 mg PO BID
levothyroxine 50 MCG tablet
50 mcg PO DAILY
Centrum Silver 1 EACH tablet
1 tab PO DAILY
cholecalciferol (vitamin D3) 2,000 UNIT tablet
2,000 units PO DAILY
Co Q-10 100 mg Softgel 200 MG
200 mg PO DAILY
esomeprazole magnesium [Nexium] 20 MG capsule,delayed release(DR/EC)
20 mg PO DAILY
magnesium oxide 250 MG tablet
400 mg PO DAILY
cyanocobalamin (vitamin B-12) 5,000 MCG tablet,disintegrating
5,000 mcg PO DAILY
Pravachol:
80 mg PO DAILY
alprazolam 0.5 MG tablet
0.5 mg PO HS PRN (Reason: sleep)
ascorbic acid (vitamin C) [Vitamin C] 500 MG tablet
500 mg PO DAILY
levalbuterol tartrate 45 mcg/actuation Hfa Aerosol Inhaler
2 inh INHALATION Q6H PRN (Reason: COPD)
fluticasone propion-salmeterol [Advair HFA] 115-21 mcg/actuation Hfa Aerosol Inhaler
2 puff INHALATION BID
amiodarone 200 mg Tablet
200 mg PO DAILY 30 Days Qty: 30 0RF
fluconazole 200 mg Tablet
400 mg PO DAILY 3 Days Qty: 6 0RF
ciprofloxacin HCl 500 mg Tablet
500 mg PO BID 3 Days Qty: 6 0RF
metoprolol succinate 25 mg Tablet Extended Release 24 Hr
25 mg PO DAILY 30 Days Qty: 30 0RF
Eliquis 5 mg Tablet
5 mg PO BID 30 Days Qty: 60 0RF
metronidazole 500 mg tablet
500 mg PO Q8H 3 Days Qty: 9 0RF
Referrals:
Moe Mccall I., DO [Active, Internal Medicine]
Activity Restrictions/Additional Instructions:
Change dressing daily. Return here if worse otherwise follow-up with your doctor
Interventions
Interventions:
*Risk Screen - Suicide Last Done: 04/10/25 17:48
*Neglect/Abuse Screening Last Done: 04/10/25 17:48
ED-Skin Assessment Last Done: 04/10/25 20:31
Discharge Date and Time
Print Language: [id number]
== END 2025-04-10 22:15 | disposition home or self-care (01) ==
LOC: EMR 17:41
PROVIDERS: EMERGENCY PHYSICIAN Emergency Medicine; FAMILY PHYSICIAN Internal Medicine Geriatric Medicine
DX: S51.811A Laceration without foreign body of right forearm, initial encounter (principal); W01.0XXA Fall on same level from slipping, tripping and stumbling without subsequent striking against object, initial encounter; I10 Essential (primary) hypertension; E78.00 Pure hypercholesterolemia, unspecified; J44.89 Other specified chronic obstructive pulmonary disease; E03.9 Hypothyroidism, unspecified; K21.9 Gastro-esophageal reflux disease without esophagitis; Z79.01 Long term (current) use of anticoagulants; Z87.891 Personal history of nicotine dependence
CPT/HCPCS: 99283; 72100; 73090

== ENCOUNTER → 2025-06-04 09:13 | Outpatient (REF) | payer OTHER, SELFPAY | LOC: PET 09:13 | PROVIDERS: ATTENDING PHYSICIAN Internal Medicine Hematology & Oncology | DX: C18.0 Malignant neoplasm of cecum (principal) | CPT/HCPCS: 78815; A9552 ==

== ENCOUNTER → 2025-06-05 11:41 | Emergency (ER) | payer OTHER, SELFPAY ==
[2025-06-05 11:51] VITALS: BP 144/71
[2025-06-05 12:22] LABS: Hematocrit 36.5 % (37.0-47.0); Hemoglobin 12.5 g/dL (12.0-16.0); Mean Corp Hgb Conc. 34.2 g/dL (33.0-37.0); Mean Corpuscular Volume 88.6 fL (81.0-99.0); Nucleated Red Blood Cells % 0 %; Platelet Count 254 10^3/uL (130-400); Red Cell Dist. Width 13.2 % (11.5-14.5)
[2025-06-05 12:28] LABS: INR 1.31; PT 16.4 Sec (11.4-14.6)
[2025-06-05 12:32] LABS: ALT (SGPT) 30 U/L (0-35); AST (SGOT) 30 U/L (14-36); Albumin 4.9 g/dl (3.5-5.0); Alkaline Phosphatase 56 U/L (38-126); Blood Urea Nitrogen 25 mg/dl (7-17); Calcium 9.7 mg/dl (8.4-10.2); Carbon Dioxide 22 mmol/L (22-30); Chloride 104 mmol/L (98-107); Glucose 114 mg/dl (70-99); Potassium 4.0 mmol/L (3.5-5.1); Sodium 136 mmol/L (135-145); Total Protein 7.5 g/dl (6.3-8.2); eGFR 49.86
[2025-06-05 12:43] LABS: Troponin I < 0.012 ng/ml
[2025-06-05 14:04] VITALS: BP 146/85
--- NOTE | 2025-06-05 14:19 | ED.GENMED ---
History of Present Illness
General
Chief Complaint: Chest Pain
Source: patient
Exam Limitations: none
Time Seen by Provider: 06/05/25 13:49
Nursing documentation reviewed up to this point in time: agreed with
History of Present Illness
History of Present Illness:
Patient is an 85-year-old female with history hypertension, hyperlipidemia, lung CA who presents to the emergency department for evaluation of left-sided back which woke her from sleep this morning at 5 AM. Patient states that she woke up from
sleep this morning with a aching pain in her left mid back. She also reports some discomfort in her mid chest and a 'strange' sensation in her left upper arm. Throughout the day today she felt that she was experiencing shortness of breath with
exertion. She denies any exacerbation back or chest discomfort with exertion. No pleuritic component to pain. She denies any fever, chills, or productive cough. No recent inciting injury or trauma. She has not noticed any rash or other viral
symptoms
Her pain has resolved by my assessment.
Of note�patient does have a history of COPD. She did recently have her inhaler switched which she thinks may be related to her shortness of breath.
Patient is currently anticoagulated on Eliquis and compliant with medication.
Past History
Past History
ED Past Medical History: Asthma, Cancer, COPD, GERD, HTN, Hypercholesterolemia, Hypothyroidism, Other and Other
ED Past Surgical History: Appendectomy, Cholecystectomy and Gynecological
Social History
Tobacco: Former smoker
Alcohol: Occasional
Drug: None
Personal:
Living: with family
Employment: Retired
Family History
Family History: Other (Noncontributory)
Review of Systems
Review of Systems
Allergies reviewed?: Yes
All Other Systems: ROS reviewed and negative except as documented in HPI and ROS
Phy Exam
Physical Exam
Physical Exam:
Vitals: Mildly hypertensive, otherwise vital signs stable. Afebrile
General: Patient is well appearing, no acute distress
Skin: Warm and dry, no rashes or lesions
Head: Normocephalic, atraumatic
Eyes: Sclera nonicteric.
Throat: Protecting airway
Neck: Normal ROM, no cervical spine tenderness, no meningismus
Cardiac: Regular rate and rhythm, no murmurs. No reproducible chest tenderness.
Pulm: Normal respiratory effort. Not hypoxic or tachypneic. Lungs clear bilaterally without wheeze.
Abdomen: Abdomen soft and nontender.
Back: Mild reproducible tenderness in left scapular region. No rash.
Extremities: No evidence of cyanosis or edema. Normal strength and sensation in left upper extremity. Palpable left distal pulses.
Neuro: AAOx3. Grossly intact.
Psychiatric: Normal affect.
Scores
Heart Score for Chest Pain Patients
STEMI patient?: Not applicable
Course
Orders/Labs/Results
Orders:
Orders
06/05/25 11:43
EKG [Electrocardiogram (*1)] Urgent
Reason for Study: Chest Pain
EKG- Treatment ONCE
06/05/25 12:02
Complete Blood Count/With Diff Urgent
Comprehensive Metabolic Panel Urgent
D-Dimer Urgent
Comment: ADD ON
NT-proBNP Urgent
Comment: ADD ON
Prothrombin Time Urgent
Troponin I Urgent
06/05/25 14:18
0.9% Sodium Chloride 500 ml [Nss] 500 ml IV BOLUS
06/05/25 14:19
Add On- LAB Urgent
Tests Added?: pro-BNP, d-dimer
EKG- Treatment ONCE
06/05/25 15:05
Electrocardiogram (*1) Urgent
Reason for Study: Chest Pain
06/05/25 15:11
Troponin I Urgent
06/05/25 15:43
CR Chest - 2 Views Urgent
Comment:
Reason For Exam: Left upper back pain/ SOB
Abnormal Lab Results
06/05/25
12:02
RBC 4.12 L 10^6/uL
(4.20-5.40)
Hct 36.5 L %
(37.0-47.0)
PT 16.4 H Sec
(11.4-14.6)
BUN 25 H mg/dl
(7-17)
Creatinine 1.1 H mg/dL
(0.6-1.0)
Glucose 114 H mg/dl
(70-99)
Total Bilirubin 1.5 H mg/dl
(0.2-1.3)
06/05/25 12:02
06/05/25 12:02
Vital Signs
Initial and Last Documented VS:
Initial Vital Signs
Temp Pulse Resp BP Pulse Ox
97.8 F 61 16 144/71 98
06/05/25 11:51 06/05/25 11:51 06/05/25 11:51 06/05/25 11:51 06/05/25 11:51
Last Documented Vital Signs
Temp Pulse Resp BP Pulse Ox
97.8 F 58 12 125/66 99
06/05/25 11:51 06/05/25 16:15 06/05/25 16:15 06/05/25 16:00 06/05/25 16:15
MDM/Problems Addressed
Differential Diagnosis Includes:
Not limited to: Muscular strain/spasm, pleural effusion, pulmonary embolism, acute coronary syndrome, pneumothorax, COPD exacerbation, zoster, etc.
MDM/Problems Addressed:
85-year-old female with left-sided back pain radiating to chest along with dyspnea on exertion. No exertional component to chest pain. No productive cough or fever. She does have a history of COPD with recent change in inhaler.
Vitals and physical exam as above. Patient is well-appearing, in no apparent respiratory distress. Heart regular rate and rhythm. Lungs are clear without wheeze. No reproducible pain in left back or chest. She has palpable and equal pulses of
upper extremities. No lower leg edema.
Differential includes musculoskeletal pain, pleural effusion, pneumothorax, pneumonia, COPD exacerbation, CHF. Less likely PE as patient is anticoagulated on Eliquis however would be on differential.
Basic labs were sent without clinically significant abnormalities. Mild renal insufficiency noted which appears stable. D-dimer undetectable as well as proBNP. 2 sets of troponins were sent and undetectable. EKG does not show any evidence of
acute ischemia or arrhythmia. Chest x-ray without acute findings.
Extensive workup in ED has been unremarkable. At this point�patient remains well-appearing and in no distress. Her pain has remained resolved since arrival to ED�very low suspicion for acute cardiac/pulmonary emergent process. Given history�will
place patient on chest pain hotline, however feel stable for discharge home with return precautions. Patient comfortable with plan.
Chronic conditions affecting care:
Hypertension, COPD, etc.
Acute Exacerbation and/or Progression of Chronic Illness:
N/A
*Radiology
Radiology exam reviewed: preliminary read by ED provider (Chest x-ray reviewed by me-no acute abnormalities) and radiology read reviewed
*Pulse Oximetry
SaO2: 98
Oxygen Mode of Delivery: Room air
Patient hypoxic: no
*EKG
Interpreted by ED Provider?: Yes
EKG Intrepretation Date: 06/05/25
Interpretation: abnormal
Comparison EKG: changes noted
Heart Rate: 59
Rate: bradycardiac
Rhythm: sinus
[place]: normal axis
Interval: normal QT interval
QRS Pattern: normal QRS
Ischemia: non-specific ST changes
*[place] Interpretation
Rate: normal
Interpretation: normal
Heart Rate: 60
Rhythm: sinus
*Critical Care Note
Total Time (30-74mins, 75-104mins- exclusive of procedures): Not Applicable
ED Attending Note
-
Portions of this chart may have been created with voice recognition software.� Occasional wrong word or��sound alike� substitutions may have occurred due to the inherent limitations of voice recognition software.
Discharge Plan
Departure
Patient Disposition: Home (Routine Discharge)
Date of Disposition: 06/05/25
Time of Disposition: 17:22
Patient with high blood pressure during this ER visit?: Yes
Condition: Good
Discharge Problem:
Chest pain, Shortness of breath, Acute left-sided back pain
Instructions: Chest pain (DC), Chest Pain CBC Follow Up, BLOOD PRESSURE
Prescriptions:
No Action
cetirizine [Zyrtec] 10 MG tablet
10 mg PO DAILY PRN (Reason: allergies) Qty: 0 0RF
Rx Instructions:
as needed
spironolactone 25 MG tablet
25 mg PO BID
levothyroxine 50 MCG tablet
50 mcg PO DAILY
Centrum Silver 1 EACH tablet
1 tab PO DAILY
cholecalciferol (vitamin D3) 2,000 UNIT tablet
2,000 units PO DAILY
Co Q-10 100 mg Softgel 200 MG
200 mg PO DAILY
esomeprazole magnesium [Nexium] 20 MG capsule,delayed release(DR/EC)
20 mg PO DAILY
magnesium oxide 250 MG tablet
400 mg PO DAILY
cyanocobalamin (vitamin B-12) 5,000 MCG tablet,disintegrating
5,000 mcg PO DAILY
Pravachol:
80 mg PO DAILY
alprazolam 0.5 MG tablet
0.5 mg PO HS PRN (Reason: sleep)
ascorbic acid (vitamin C) [Vitamin C] 500 MG tablet
500 mg PO DAILY
levalbuterol tartrate 45 mcg/actuation Hfa Aerosol Inhaler
2 inh INHALATION Q6H PRN (Reason: COPD)
fluticasone propion-salmeterol [Advair HFA] 115-21 mcg/actuation Hfa Aerosol Inhaler
2 puff INHALATION BID
amiodarone 200 mg Tablet
200 mg PO DAILY 30 Days Qty: 30 0RF
fluconazole 200 mg Tablet
400 mg PO DAILY 3 Days Qty: 6 0RF
ciprofloxacin HCl 500 mg Tablet
500 mg PO BID 3 Days Qty: 6 0RF
metoprolol succinate 25 mg Tablet Extended Release 24 Hr
25 mg PO DAILY 30 Days Qty: 30 0RF
Eliquis 5 mg Tablet
5 mg PO BID 30 Days Qty: 60 0RF
metronidazole 500 mg tablet
500 mg PO Q8H 3 Days Qty: 9 0RF
Referrals:
Timur Gonzalez MD [Active, Cardiology] - Next open appointment
Miguel Martínez MD [Family Provider, Internal Medicine]
Activity Restrictions/Additional Instructions:
RETURN TO THE EMERGENCY DEPARTMENT WITH ANY PERSISTENT/WORSENING CHEST PAIN OR SHORTNESS OF BREATH, SEVERE BACK PAIN, FEVER PRODUCTIVE COUGH, WORSENING IN CURRENT SYMPTOMS, OR ANY OTHER CONCERNS
- As discussed�your lab work including 2 sets of cardiac enzymes showed no acute abnormalities today in the emergency department. Your kidney function was mildly elevated however appears stable. Your chest x-ray showed no acute findings.
- Please continue to take your medications as prescribed and use your inhalers as directed.
- Follow-up with cardiology and pulmonology for further evaluation/management and to ensure that your symptoms are improving
Monitor your symptoms closely and return to the emergency department with any acute worsening/new symptoms or any other concerns
Interventions
Interventions:
*Risk Screen - Suicide Last Done: 06/05/25 11:51
*General Assessment Last Done: 06/05/25 11:51
*Neglect/Abuse Screening Last Done: 06/05/25 11:51
Discharge Date and Time
Print Language: ICELANDIC
[2025-06-05 14:41] LABS: D-Dimer < 0.27 ug/mlFEU (0.00-0.50)
[2025-06-05 15:01] VITALS: BP 129/90
[2025-06-05 16:00] VITALS: BP 125/66
[2025-06-05 16:12] LABS: Troponin I < 0.012 ng/ml
[2025-06-05] MEDS: NSS 500 IV (16:20)
== END | disposition home or self-care (01) ==
LOC: EMR 11:41
PROVIDERS: Emergency Medicine; Physician Assistant; EMERGENCY PHYSICIAN Emergency Medicine; FAMILY PHYSICIAN Internal Medicine Geriatric Medicine
DX: R07.89 Other chest pain (principal); I10 Essential (primary) hypertension; E78.00 Pure hypercholesterolemia, unspecified; E03.9 Hypothyroidism, unspecified; K21.9 Gastro-esophageal reflux disease without esophagitis; J44.89 Other specified chronic obstructive pulmonary disease; Z79.01 Long term (current) use of anticoagulants; Z85.118 Personal history of other malignant neoplasm of bronchus and lung; Z87.891 Personal history of nicotine dependence; Z90.49 Acquired absence of other specified parts of digestive tract
CPT/HCPCS: 99283; 71046; 80053; 83880; 84484; 85025; 85379; 85610; 93005